=== PATIENT | female | born 1970 | race Caucasian/White ===

== ENCOUNTER 2019-10-17 20:38 | Inpatient (IN) ==
[2019-10-18] MEDS ORDERED: ICU PROTOCOL FOR HYPERGLYCEMIA PRN (05:57)
[2019-10-18] MEDS ORDERED: ALBUT/IPRATROP 3MG/0.5MG NEB 3 ML VIAL INH PRN (06:03)
--- NOTE | 2019-10-18 06:09 | History & Physical Report ---
Date of Service October 18, 2019 Assessment & Plan (1) Admitted to intensive care unit: Consult to vegetable ii farmworker Dr. Stacy and staff. Present on Admission?: Yes (2) NSTEMI, initial episode of care: The patient will have ordered serial cardiac enzymes, serial EKG's, cardiac rhythm monitoring and a 2-D echocardiogram with Dopplers. Initial troponin at [facility] was 1.5. Consult cardiology. Present on Admission?: Yes (3) Acute respiratory failure with hypoxia: Patient received a total of 4 L normal saline during resuscitation efforts at [facility]. Albumin is 2.7. We will give albumin 25 g IV x2. Stat chest x-ray ordered. BiPAP is being tapered, and will change to nasal cannula as symptoms improve. No immediate need for Lasix at this time, but will likely benefit soon. Present on Admission?: Yes (4) Sepsis due to gram-negative UTI: Sepsis due to gram-negative UTI/hydronephrosis with urinary obstruction due to ureteral calculus- Continue empiric treatment vancomycin IV and Zosyn IV. Would not draw additional urine culture and blood cultures drawn here, as patient has already received IV antibiotics, and will follow reports from [facility]. Present on Admission?: Yes (5) Hydronephrosis with urinary obstruction due to ureteral calculus: See above Present on Admission?: Yes (6) Altered mental status: Patient upon first presentation to [facility] on 01/12 had normal mentation. Upon presentation to [facility] ED on the evening of 01/13 she was noted to be confused. Upon arrival to [facility] ICU patient does answer questions appropriately. Present on Admission?: Yes (7) Anemia: 20 compare hemoglobin 9.2, with for hemoglobin pending. Present on Admission?: Yes History of Present Illness Chief Complaint: The patient initially reported to [facility] emergency department on 01/12 and was diagnosed with a 2 x 3 ureteral stone without obstruction, received IV fluids, IV Zofran and IV Toradol, and was discharged to home. Patient returned to the ED at [facility] this evening, with complaint of worsening flank pain and altered mental status. Work-up at this time revealed a 5 mm obstructing ureteral calculus, with mild to moderate hydroureteronephrosis, and and elevated troponin of 1.5, for which she was started on heparin drip. She also received vancomycin IV and Zosyn IV, along with 4 L nasal cannula IV fluid bolus. Primary Care Provider: NO PCP The patient is a 49-year-old female who presented to [facility] emergency department as noted above. She was transferred to [facility] for admission to ICU for further diagnosis and treatment. En route, patient developed acute respiratory failure with hypoxia, was placed on BiPAP, and had an ABG suggestive of respiratory failure with hypoxia and hypercapnia. Allergies Allergy/AdvReac Type Severity Reaction Status Date / Time Penicillins Allergy Unknown Unknown Verified 10/18/19 08:39 Past Med/Surg History Social History Preferred Language: Finnish Communication Ability: Unable Program Arranger Required: No Beliefs That Will Affect Care: None Current Living Situation: Other Current Living Situation Comment: Friend Other Information That Helps Us Care for You: No Feels Safe at Home: Yes Safety Concerns: Feels Safe At This Time Smoking Status: Current every day smoker Tobacco Type: cigarettes ; Cigarettes Per Day: 10 ; Do You Dip or Chew Tobacco: No ; Second Hand Exposure: No ; Tobacco Cessation Education Requested by Patient: No Hx Alcohol Use: No Hx Substance Use: No Review of Systems Review of Systems: The patient denies chest pain, palpitations, cough, sore throat, fevers, chills, sweats, nausea, vomiting, diarrhea , constipation, abdominal pain, pelvic pain, blood in urine or stool, dysuria, urinary frequency or urgency, lightheadedness, dizziness, headache, memory loss, loss of consciousness, rash, abnormal bruising or bleeding, imbalance, focal weakness, numbness or tingling in arms or legs, generalized arthralgias or myalgias, back or neck pain, or night sweats. The review of systems is otherwise negative other than for that already noted above, and at least 10 systems have been reviewed. Physical Exam Physical Exam: The patient is awake, alert and oriented 3, BiPAP mask in place, otherwise normocephalic and atraumatic, lying in bed and in no acute distress. HEENT--PERRL, EOMI, mucous membranes and oropharynx dry. Neck--supple. No JVD. No bruits. Thyroid normal, trachea midline, no adenopathy. Heart--normal S1 and S2. No murmurs, rubs or gallops. Lungs--few coarse breath sounds bilaterally. No respiratory distress, no accessory muscle use. Abdomen--normal bowel sounds and soft. Nontender. Mildly tympanitic. Extremities--no cyanosis or clubbing. Trace bilateral pretibial pitting edema. Dermatologic--normal skin turgor, normal color, no abnormal lymph nodes, no rash. Neurologic--cranial nerves II through XII grossly intact. Rheumatologic--limited exam Psychiatric--normal affect. Code Status & VTE Plan Code Status Full code VTE Prophylaxis Plan VTE Prophylaxis will be ordered: Yes Critical Care Time Critical Care Time: Yes Total Critical Care Time: 40 Total critical care time was 40 minutes PG Care Time/CCT Total # of Minutes Spent Total Time Spent with Patient: Total time spent is greater than 50% in coordination of care (as documented) at patient's floor/unit and/or counseling patient: Critical Care Time: Yes Total Critical Care Time: 40 Coding Level of Care Code 92596 Initial Inpt Care Lvl 3 Diagnoses Admitted to intensive care unit Z78.9 NSTEMI, initial episode of care I21.4 Acute respiratory failure with hypoxia J96.01 Sepsis due to gram-negative UTI A41.50; N39.0 Hydronephrosis with urinary obstruction due to ureteral calculus N13.2 Altered mental status R41.82 Anemia D64.9 Additional Codes Critical Care Time - Critical Care Time: Yes ([id number]) Time Spent (min) 40
[2019-10-18] MEDS ORDERED: VANCOMYCIN CONSULT ACTIVE PRN (06:14)
[2019-10-18] MEDS ORDERED: PIPERACILL/TAZOBAC CONSULT ACTIVE PRN (06:14)
[2019-10-18 06:30] LABS: iSTAT Art Bld Gas pCO2 Correct 32 mmHg (35-46); iSTAT Art Bld Gas pH Corrected 7.285 (7.35-7.45); iSTAT Arterial Blood Gas HCO3 15 meg/L (19-24); iSTAT Arterial Blood Gas pCO2 32 mmHg (35-46); iSTAT Arterial Blood Gas pH 7.29 (7.35-7.45); iSTAT Arterial Blood Gas pO2 110 mmHg (80-95); iSTAT Arterial Blood Gas pO2 C 110; iSTAT Carbon Dioxide 16 mmol/L (24-31); iSTAT FiO2 60 %; iSTAT Hematocrit 27 % (37-47); iSTAT Hemoglobin 9.2 g/dl (12.0-16.0); iSTAT Potassium 4.1 mmol/L (3.3-5.0); iSTAT Site Art Line; iSTAT Sodium 140 mmol/L (135-144)
[2019-10-18] MEDS ORDERED: PATIENT'S HEIGHT AND/OR WEIGHT NEEDED SCH (06:30)
[2019-10-18] MEDS: ALBUMIN 25% 50 ML IV SCH ×2 (06:34→09:36)
--- NOTE | 2019-10-18 06:34 | XRay Report ---
XR chest 1V portable HISTORY: 49 years-old Female HYPOXIA acute hypoxia COMPARISON: None TECHNIQUE: Portable AP view of the chest FINDINGS: Cardiac silhouette is enlarged. Blunting of the costophrenic angles with mild hypoinflation. No pneum othorax. Diffuse bilateral mixed interstitial and alveolar opacities. Pulmonary vascular congestion. No large pleural effusion. Degenerative changes of the shoulders and spine. IMPRESSION: 1. Cardiomegaly with mixed interstitial and alveolar opacities suggestive of pulmonary edema versus m ultifocal pneumonia. 2. Hypoinflation with blunting of the costophrenic angles suggestive of atelectasis versus trace effu sions. ACT 112: Negative or not required by law. The above report was generated using voice recognition software. It may contain grammatical, syntax o r spelling errors. Electronically signed by: Jean Claude Spear M.D. 10/18/2019 6:33 AM
[2019-10-18 06:38] LABS: Albumin Level 2.3 gm/dl (3.4-5.0); Calcium 7.2 mg/dl (8.5-10.1); Creatinine Clr Calc Pharmacy 24.7 ml/min; Est GFR (African American) 18.9; Est GFR (Non-African American) 16.3; Magnesium 1.5 mg/dl (1.8-2.4)
[2019-10-18 06:47] LABS: Albumin Globulin Ratio 0.6 (0.9-2); Bilirubin,Total 0.6 mg/dl (0.2-1); Globulin 3.6 gm/dl (2.5-4.0); Total Protein 5.9 gm/dl (6.4-8.2); Troponin I 2.22 ng/ml (0-0.045)
--- NOTE | 2019-10-18 06:54 | Critical Care Consultation ---
Date of Consultation October 18, 2019 Assessment & Plan (1) Admitted to intensive care unit: Reason Critically Ill: 49-year-old female presenting with sepsis from urinary source and retained RIGHT-sided ureteral calculus with complicating NSTEMI with subsequent volume overload in the setting of aggressive fluid resuscitation. Requiring close hemodynamic monitoring in the setting of presenting symptoms and possible need for impending airway protection. NEURO - * CAM ICU: NEGATIVE * Altered mental status: * Secondary to metabolic encephalopathy in the setting of sepsis, acute kidney injury, NSTEMI, etc. * CT head unremarkable in outpatient setting. * No focal neurological deficits on exam. * Monitor for improvement as patient's clinical status changes. * Anxiety/depression: * Hold home medications with current altered mental status. CARDIAC/VASCULAR - * NSTEMI: * Likely secondary to demand ischemia in the setting of related infection. Without concerning EKG findings. Placed on heparin drip in outpatient facility. * Echocardiogram ordered in the event that the patient has experienced recent coronary event in the setting of current illness. * Trend troponins. * Appreciate cardiology consultation with the need of emergent surgical intervention. * EKG: Sinus Tach @115bpm. No ST/T-wave changes. QTc 473ms. * Monitor on telemetry. RESPIRATORY - * Acute respiratory failure with hypoxia: * Secondary to pulmonary edema with acute volume overload. * Initially placed on BiPAP at outpatient hospital. Transition to CPAP in route secondary to EMS capabilities. Initially presenting extremely tachypneic and uncomfortable. Transition to BiPAP and has shown improvement this time. * ABG upon arrival: 7.285/32.1/110/15.2 * Currently doing well on BiPAP. Less respiratory distress at this time. * Low threshold for intubation. GI/NUTRITION - * N.p.o. at this time. RENAL/LYTES - * Acute kidney injury: * In the setting of retained stone and likely hypovolemia. * Aggressively resuscitated in outside facility and now actually volume overloaded at this time. * Making urine. * Received dose of Lasix at outpatient hospital. * Continue to trend electrolytes. Replace appropriately. * IVF: Hold secondary to volume status this point. - * Retained RIGHT-sided ureteral stone with hydronephrosis -superimposed UTI with concerns for septic stone. * Urology consulted. Spoke with urology this morning. They will follow with patient's course at this time with plans for emergent stenting today. * Currently on vancomycin and Zosyn. * Growing out gram-negative rods. Presumed E. coli like infection from urinary source. * Jimenez in place - Strict I&Os. ENDO - * No history of diabetes or thyroid disease. * BSGs per unit protocol. ISS --> gtt per unit policy. HEME - * Anemia: * Possible dilutional component secondary to receiving 4 L. * Regardless, continue to trend H&H. ID - * Sepsis from urinary source in the setting of retained urinary stone. * Received vancomycin, Zosyn, and meropenem. * Will continue with vancomycin and Zosyn. * Initial lactate 4.4. Will repeat now. * Will add procalcitonin. * Will avoid cultures at this time as the patient is received over 3 antibiotics at this point. Will rely on outpatient cultures at this time. LINES/IV ACCESS - * PIVs x2 * RIGHT radial arterial line. * Jimenez catheter DVT PROPHYLAXIS - * Heparin drip. * SCDs I have personally spent 45 minutes of critical care time in the direct management of this patient. This is a life/limb threatening event. This includes time spent evaluating patient, direct bedside care, chart review, placing orders, interpretation of diagnostic studies, discussion with consultants, patient, and family members, as well as other required patient management activities. This time is exclusive of all separately billable procedures, and teaching time and separate from and in addition to any other critical care service time. Thank you for allowing us to participate in the care of this patient. Please refer to my attending physician's documentation for any further recommendations. (2) Hydronephrosis with urinary obstruction due to ureteral calculus: (3) Acute respiratory failure with hypoxia: (4) NSTEMI, initial episode of care: (5) Sepsis due to gram-negative UTI: (6) Altered mental status: (7) Anemia: Supervising Physician Co-Signing Physician Notes I have personally evaluated and examined this patient. I agree with assessment and plan of Maritza Turner PA-C. Please review today's note for follow-up critical care. History of Present Illness Attending Physician: Shamar Vazquez MD History of Present Illness Patient is a 49-year-old female with significant past medical history of depression and anxiety who was seen at the [facility] emergency department yesterday with complaints of RIGHT-sided flank pain. She was diagnosed with a 2 to 3 cm renal stone with hydronephrosis. Phone consultation was made to local urology office and it was felt as though the patient would likely pass the stone without issue. Today, the patient was noted to be altered and sleeping in her bed. She had urinated herself. Her daughter found her at home and contacted EMS. Upon arrival in the emergency department, the patient was somnolent and drowsy. Apparently, she had received Narcan prior to arrival without success. She received 1.5 L of normal saline and was much improved at this time and able to provide history. The patient was alert and oriented at that point. Repeat CT scan demonstrates a 5 mm obstructing stone with significant hydronephrosis. Urine was concerning for infection. She was febrile and tachycardic. Labile blood pressures noted. Given lack of urologic services at [facility], consultation was made to transfer the patient to our facility. Patient was accepted at approximately 2000. Transportation to this facility was unsuccessful and the patient did not arrive in this unit until 0540. Upon arrival in the ICU, the patient is awake, alert, and oriented. She is aware of name, date of , and location. She is unaware of year, but does know month. She knows that she is here for kidney stone. She describes feeling short of breath and RIGHT-sided flank pain. Despite her shortness of breath, she denies any headaches, dizziness, chest pain, palpitations, pleuritic pain, nausea, vomiting, or abdominal discomfort. Patient reports history of smoking. Allergies Allergy/AdvReac Type Severity Reaction Status Date / Time Penicillins Allergy Unknown Unknown Verified 10/18/19 08:39 Patient History Social History Preferred Language: Lao Communication Ability: Unable Other Sales Support Worker Required: No Beliefs That Will Affect Care: None Current Living Situation: Other Current Living Situation Comment: Friend Other Information That Helps Us Care for You: No Feels Safe at Home: Yes Safety Concerns: Feels Safe At This Time Smoking Status: Current every day smoker Tobacco Type: cigarettes ; Cigarettes Per Day: 10 ; Do You Dip or Chew Tobacco: No ; Second Hand Exposure: No ; Tobacco Cessation Education Requested by Patient: No Hx Alcohol Use: No Hx Substance Use: No Review of Systems Review of Systems: A complete 10 point review of systems was reviewed with the patient with pertinent positives and negatives as per history of present illness. All else were negative. Physical Exam Physical Exam: VITAL SIGNS - Vital signs and nursing notes were reviewed. GENERAL - 49-year-old female appearing her stated age who is in no acute distress. Communicates well with provider and answers questions appropriately. SKIN - Without rashes. HEAD - NC/AT. EYES - PERRL with EOMI bilaterally. Sclera anicteric. Palpebral conjunctiva pink and moist with no injection noted. EARS - No deformities of external structures noted on gross examination bilaterally. NOSE - Midline and without cyanosis. No epistaxis or purulent drainage noted. MOUTH/OROPHARYNX - BiPAP mask in placer. Without perioral cyanosis. Buccal mucosa pink and moist and without leukoplakia. Tongue midline with equal elevation of palate bilaterally. NECK - Neck with FROM. Supple to palpation. No lymphadenopathy noted. No nuchal rigidity. LUNGS - Chest wall symmetric without accessory muscle use, intercostals retractions, or central cyanosis. Normal vesicular breath sounds CTA B/L. No wheezes, rales, or rhonchi appreciated. CARDIAC - RRR with S1/S2. No murmur, rubs, or gallops appreciated. ABDOMEN - Abdominal contour obese without pulsations or visible masses. BS normoactive all four quadrants. No tenderness, palpable masses, hepatosplenomegaly, or ascites noted. RIGHT sided flank pain w/ percussion noted. EXTREMITIES - No clubbing or peripheral cyanosis. No pretibial edema present. +3/5 radial and dorsalis pedis pulses palpated throughout. +5/5 strength noted in UE/LE bilaterally. NEUROLOGIC - Cranial nerves II through XII grossly intact. Sensory intact to light touch throughout. PSYCH -patient is awake, alert, and oriented to person, place, location. She is unaware of year. She is unaware of date. She knows it is September. She knows she is in [place] for her RIGHT sided flank pain and kidney stone. Results & Data ([facility]) Vital Signs (Past 12 Hours) Vital Signs Temp Pulse Pulse Resp BP BP Pulse Ox 10/18/19 06:26 115 H 10/18/19 06:17 116 H 22 144/104 H 10/18/19 06:15 116 H 21 10/18/19 06:14 36.5 C 115 H 35 H 135/100 97 10/18/19 06:02 114 H 37 H 132/99 100 10/18/19 06:00 115 H 35 H 99 10/18/19 05:47 115 H 34 H 135/100 99 Coding Level of Care Code Critical Care 1st 30-74 mins Diagnoses Admitted to intensive care unit Z78.9 Hydronephrosis with urinary obstruction due to ureteral calculus N13.2 Acute respiratory failure with hypoxia J96.01 NSTEMI, initial episode of care I21.4 Sepsis due to gram-negative UTI A41.50; N39.0 Altered mental status R41.82 Anemia D64.9 Time Spent (min) 45
[2019-10-18 06:56] LABS: ANC (manual) 12.71 K/uL (1.4-6.5); Basophils # (manual) 0.13 K/uL (0-0.2); Basophils % (manual) 0.9 %; Echinocytes 1+; Hematocrit (blood only) 30.3 % (37-47); Lymphocytes # (manual) 0.76 K/uL (1.2-3.4); Lymphocytes % (manual) 5.2 %; Mean Corpuscular Volume 84.9 fL (80-100); Mean Platelet Volume 10.6 fL (7.4-10.4); Metamyelocytes # (manual) 0.63 K/uL (0-0); Metamyelocytes % (manual) 4.3 %; Monocytes # (manual) 0.38 K/uL (0.11-0.59); Monocytes % (manual) 2.6 %; Neutrophils # (manual) 12.71 K/uL (1.4-6.5); Platelet Count 41 K/uL (130-400); Platelet Estimate Decreased (Normal); RDW Coefficient of Variation 14.7 % (11.5-14.5); Red Blood Count 3.57 M/uL (4.2-5.4); Toxic Vacuolation 2+; White Blood Count 14.61 K/uL (4.8-10.8)
[2019-10-18 07:06] LABS: INR 1.2 (0.9-1.1); Partial Thromboplastin Ratio 4.1; Prothrombin Time 12.5 Seconds (9.0-12.0)
[2019-10-18] MEDS ORDERED: PERFLUTREN LIPID MICROSPHERE (DEFINITY) IV ONE (07:15)
--- NOTE | 2019-10-18 07:19 | Procedure Note ---
Procedure Note Date of Service October 18, 2019 Procedure: Arterial Line Placement Attending: Dr. Stacy APC: Saad Turner PA-C Indication: Monitoring on Pressors Anesthesia: Lidocaine 1% Verbal consent obtained in the setting of need for emergent ABG, blood gas monitoring in the setting of impending airway. Emergent consent implied. A time-out was completed verifying correct patient, procedure, site, positioning, and implant(s) or special equipment if applicable. Allens test was performed to ensure adequate perfusion. Patients RIGHT wrist was prepped and draped in the usual sterile fashion. Ultrasound guidance was used to aid needle placement. A 20g Arrow arterial line was introduced into the RIGHT Radial artery. Catheter was threaded, and the needle was removed with appropriate blood return. Good waveform was observed. The patient tolerated the procedure well. Confirmation of placement with ultrasound. Blood Loss: Minimal Complications: None Procedural Ultrasound Guidance: Procedure Date: 10/18/2019 Indication: ABGs, Pressures, Labs. Attending: Dr. Stacy APC: Saad Turner PA-C Artery Identified: YES Line confirmed in Artery with ultrasound: YES Complications: NONE Patient tolerated procedure: WELL Coding CPT Codes Tubes, Drains, and Vasc Access - Tubes, Drains, and Vasc Access: [id number] Place Catheter In Artery ([id number]) [facility] Procedure Codes (Charges) Tubes, Drains, and Vasc Access Procedure 1: Tubes, Drains, and Vasc Access: [id number] Place Catheter In Artery
[2019-10-18] MEDS ORDERED: STAT IV Infusion **Titration per Protocol STA (07:31)
[2019-10-18] MEDS ORDERED: fentaNYL citrate 100 MCG/2 ML VIAL IV PRN (07:31)
[2019-10-18] MEDS ORDERED: Heparin IV Standard *NO* Bolus IV SCH (07:33)
[2019-10-18] MEDS ORDERED: RAPID SEQUENCE INDUCTION BAG ONE (07:33)
[2019-10-18] MEDS ORDERED: MIDAZOLAM HCL 125MG/250ML D5W ONE (07:35)
[2019-10-18 07:40] LABS: Partial Thromboplastin Time 111.5 Seconds (21.0-31.0)
[2019-10-18] MEDS ORDERED: fentaNYL DRIP 1,250 MCG/250 ML BAG IV SCH (07:45)
[2019-10-18] MEDS ORDERED: HEPARIN SODIUM/DEXTROSE 25,000 UNITS/500 ML BAG IV SCH (07:45)
[2019-10-18] MEDS ORDERED: MIDAZOLAM HCL 125 MG/250 ML BAG IV SCH (07:45)
--- NOTE | 2019-10-18 07:54 | Urology Consultation ---
Date of Consultation October 18, 2019 Assessment & Plan (1) Right ureteral stone: (2) Acute kidney injury: (3) Hydronephrosis with urinary obstruction due to ureteral calculus: 49 year-old female patient admitted with altered mental status, acute respiratory failure, NSTEMI, sepsis, and 5 mm obstructing right proximal ureteral stone. - Keep NPO - Complicated hospital course - being managed by intensivists - Anesthesia consulted - Discussed findings with patient's daughter who is also agreeable with stent today. Findings reviewed with Dr. Paredes. Given her ZION and sepsis in the context of an obstructing 5mm proximal right ureteral stone, will proceed with emergent OR for cystoscopy, right retrograde pyelogram and right stent placement. Risks and benefits to be reviewed with patient/family member by Dr. Paredes. OR notified. Preoperative CXR and EKG completed. Patient currently covered with IV Zosyn preoperatively. History of Present Illness Reason for Consultation: Obstructing right ureteral stone with hydronephrosis Attending Physician: Augustin Cuba History of Present Illness Patient is a 49-year-old female with significant past medical history of depression and anxiety admitted 10/18 via transfer from [facility]. Upon record review, patient was seen [facility] on 10/15 and diagnosed with 2x3 right ureteral stone. She was told she would likely pass stone without intervention and sent home. Patient was then found by her daughter at home 10/17 with altered mental status and contacted EMS and evaluated at [facility]. Repeat CT scan demonstrated a 5 mm obstructing right proximal ureteral stone with significant hydronephrosis. Urine at that time was concerning for infection. Notes report patient was febrile and tachycardic. Patient was then transferred to [facility] for acute management. Patient's current health status also complicated by NSTEMI, acute respiratory failure, and sepsis. Patient reports she has not followed with urology services in the past. Denies history of stones. Does have first degree relative with history of renal stones. Chart review: Wbc 14.61 Hgb 10.0 Creatinine 3.15 Lactic acid 2.6 Urinalysis positive for blood and bacteria, negative for leukocytes, wbc 0-1 Afebrile since [facility] hospital admission CT abd/pelvis: 5 mm obstructing right ureteral stone with moderate hydronephrosis Patient examined in bed, she is awake and alert. Does report right flank pain. Does state she was experiencing subjective fevers and chills prior to admission. Denies nausea or vomiting. Reports hematuria and dysuria. Denies frequency or urgency. Patient on Bipap at time of exam. Did discuss findings and planned procedure with patient's daughter Lino De Oliveira, who agrees with plans. All questions answered. ATTENDING: Plan for urgent stent placement on right for severe sepsis. Patient intubated and sedated. Consent through daughter for urgent procedure. Allergies Allergy/AdvReac Type Severity Reaction Status Date / Time Penicillins Allergy Unknown Unknown Verified 10/18/19 08:39 Patient History Social History Preferred Language: Montserratian Communication Ability: Effective Clinical Nutritionist Required: No Beliefs That Will Affect Care: None Current Living Situation: Other Current Living Situation Comment: Friend Other Information That Helps Us Care for You: No Feels Safe at Home: Yes Safety Concerns: Feels Safe At This Time Smoking Status: Current every day smoker Tobacco Type: cigarettes ; Cigarettes Per Day: 10 ; Do You Dip or Chew Tobacco: No ; Second Hand Exposure: No ; Tobacco Cessation Education Requested by Patient: No Hx Alcohol Use: No Hx Substance Use: No Review of Systems Constitutional: as per Subjective / HPI, + fever and + chills Respiratory: as per Subjective / HPI and + dyspnea Cardiovascular: as per Subjective / HPI Gastrointestinal: no nausea and no vomiting Genitourinary: as per Subjective / HPI, + dysuria and + hematuria Neurologic: as per Subjective / HPI Physical Exam Constitutional: well developed, + ill appearing, cooperative and comfortable ENMT: Ears: no external ear abnormality Nose: no external nose abnormality Neck: normal visual inspection; no anterior neck swelling Respiratory: Bipap in place. No audible wheezing. Gastrointestinal (Abdomen): Abdomen soft, non-tender, non-distended. No guarding or rigidity. Musculoskeletal: Able to move all extremities without difficulty. Skin: No visible rashes, lesions, or wounds. Neurologic: moves all extremities and awake Psychiatric: Patient awake, alert, and answers questions appropriately. Alert to person, place, and event. Unable to recall time at time of exam. Genitourinary: Positive right CVA tenderness upon palpation. Jimenez cathter intact draining concentrated yellow urine. Results & Data Vital Signs (Past 12 Hours) Vital Signs Temp Pulse Pulse Resp BP BP Pulse Ox 10/18/19 07:08 32 H 96 10/18/19 06:26 115 H 10/18/19 06:17 116 H 22 144/104 H 10/18/19 06:15 116 H 21 10/18/19 06:14 36.5 C 115 H 35 H 135/100 97 10/18/19 06:02 114 H 37 H 132/99 100 10/18/19 06:00 115 H 35 H 99 10/18/19 05:47 115 H 34 H 135/100 99 PG Care Time/CCT Total # of Minutes Spent Total Time Spent with Patient: Total time spent is greater than 50% in coordination of care (as documented) at patient's floor/unit and/or counseling patient: Coding Level of Care Code 51659 Inpt Consult Level 3 Diagnoses Right ureteral stone N20.1 Acute kidney injury N17.9 Hydronephrosis with urinary obstruction due to ureteral calculus N13.2
--- NOTE | 2019-10-18 07:57 | Procedure Note ---
Procedure Note Date of Service October 18, 2019 APC: Saad Turner PA-C. Attending: Dr. Stacy A time-out was completed verifying correct patient, procedure, site, positioning. Patient was evaluated and required intubation for respiratory distress in the setting of ARDS with profound hypoxia requiring escalating FiO2 utilizing BiPAP. Sedative agent used: Fentanyl, Etomidate Paralysis agent used: Succinylcholine Emergent consent was implied given patients rapidly declining clinical status and need for airway protection. The patient was prepared in the appropriate fashion. Sedation was achieved utilizing Fentanyl, Etomidate and Succinylcholine, per Dr. Somers administration. The patient was easily ventilated using BiPAP mask to achieve adequate oxygenation. A 7.5 Syriac endotracheal tube was placed using [place] Scope to 21 cm at the lip. The stylette was removed and balloon was inflated with 10mL of air. Appropriate Colorimetric change was appreciated. Bilateral breath sounds were heard without air sounds in the abdomen. Dr. Stacy was present for the entire procedure. Post Intubation Chest X-ray confirms placement without pneumothorax. Patient tolerated the procedure well and there were no immediate complications. Coding CPT Codes Resuscitation - Resuscitation: 11717 Endotracheal Intubation, emergency ([id number]) [facility] [place] Procedure Codes (Charges) Resuscitation Resuscitation: 32428 Endotracheal Intubation, emergency
--- NOTE | 2019-10-18 08:18 | XRay Report ---
XR chest 1V portable HISTORY: 49 years-old Female post tube acute respiratory failure COMPARISON: Chest radiograph of same day at 6:21 AM TECHNIQUE: Portable AP view the chest FINDINGS: Status post placement of an endotracheal tube terminating 2.4 cm superior to the reinier. Cardiac silh ouette is enlarged. Mild linear bibasilar atelectasis. Blunting of the costophrenic angles with mild hypoinflation. No pneumothorax. Mildly improved aeration of the lungs with persistent bilateral mixed interstitial and alveolar opacities. Pulmonary vascular congestion. No large pleural effusion. Degen erative changes of the shoulders and spine. IMPRESSION: Status post placement of an endotracheal tube terminating 2.4 cm superior to the reinier. ACT 112: Negative or not required by law. The above report was generated using voice recognition software. It may contain grammatical, syntax o r spelling errors. Electronically signed by: Jean Claude Spear M.D. 10/18/2019 8:17 AM
--- NOTE | 2019-10-18 08:25 | Anesthesiology Progress Note ---
Date of Service October 18, 2019 Assessment & Plan (1) Acute respiratory failure with hypoxia: Intubated in ICU by anesthesiologist. Vent and sedation management by critical care team. Present on Admission?: Yes Subjective Patient transferred overnight from outside hospital with obstructing ureteral stone. Worsening sepsis overnight and acute hypoxic respiratory failure, impending ARDS. Patient is planned for URS/Stenting later this morning or afternoon. On exam, patient tachycardic and altered mental status. Pulling at lines and CPAP mask. Oxygen saturations in the low 80s. The mask was replaced and oxygen saturations were improved to mid 90s, with some improvement in mental status. Given the worsening clinical picture and the need for an impending surgery, the decision to intubate the patient urgently in the ICU was made. Emergency consent declared, as patient was disoriented. Critical care EXPRESSIVE ART THERAPIST performed the procedure, supervised by myself. Patient was given 100mcg Fentanyl, 16mg Etomadate, 140mg Succinylcholine. RSI with cricoid pressure, glidescope used for placement of 8.0ETT. Bilateral breath sounds, continuous ETCO2 confirmed. Tube secured 21cm at the lip. CXR, ventilator, and sedation per CC team. Pre intubation vitals: HR 119 R: 24 BP: 155/105 SPO2: 94 Post intubation vitals: HR: 108 R: Controlled BP: 130/84 SPO2: 97 Physical Exam Vital Signs: Last Vital Signs Temp 36.5 C 10/18/19 06:14 Pulse 103 H 10/18/19 07:50 Resp 20 10/18/19 07:50 BP 144/104 H 10/18/19 06:17 Pulse Ox 98 10/18/19 07:50 Results & Data Medications Administered Albumin Human (Albumin 25%) 50 mls @ 50 mls/hr IV Q1H [place] Stop: 10/18/19 08:29 Last Admin: 10/18/19 06:34 Dose: Not Given Documented by: [id number]
--- NOTE | 2019-10-18 08:38 | Anesthesiology Consultation ---
Date of Service October 18, 2019 Assessment & Plan Chart Review Chart Review: Acceptable Risk for Surgery and Patient NOT seen in Pre Admission Testing Consults Requested none ASA [id number] Proposed Anesthesia Anesthesia Type: General Risk / Benefits Reviewed With: PT / POA / Parent / Guardian, Accepts Plan and Informed Consent Obtained History Surgery Operation Date: 10/18/19 08:15 Proposed Procedures p Cystoscopy Stent Insertion - Edmundo Paredes, DO Height/Weight Height: 5 ft 8 in Weight: 89.1 kg Allergies Allergy/AdvReac Type Severity Reaction Status Date / Time Penicillins Allergy Unknown Unknown Verified 10/18/19 08:39 NPO Date Last Intake of Fluids: 10/16/19 Time Last Intake of Fluids: 18:00 Date Last Intake of Solids: 10/16/19 Time Last Intake of Solids: 12:00 Exercise / Class Metabolic Activity III < 4 Walking/Shop/Light housework Past Anesthesia History No Hx of Anesthesia Complications and No Family Hx of Anesthesia Complications History of PONV No Hx of PONV and No Hx of Motion Sickness Social History Smoking Status: Current every day smoker tobacco type: cigarettes Smoking cigarettes per day: 10 Do You Dip or Chew Tobacco: No Hx Alcohol Use: No Hx Substance Use: No Physical Exam Vital Signs Last Vital Signs Temp 37 C 10/18/19 08:18 Pulse 103 H 10/18/19 08:18 Resp 20 10/18/19 07:50 BP 163/95 H 10/18/19 08:18 Pulse Ox 98 10/18/19 07:50 Testing Laboratory Results 10/18/19 06:13 10/18/19 06:13 PT 12.5 Seconds (9.0-12.0) H 10/18/19 06:32 INR 1.2 (0.9-1.1) H 10/18/19 06:32 APTT 111.5 Seconds (21.0-31.0) H* 10/18/19 06:32 Electrocardiogram Date: 10/18/19 Findings: + ST @ (at 115;? infer. infarct) Chest X-Ray Date: 10/18/19 Findings: + infiltrate, + pulmonary vascular congestion and + other (c/w ARDS)
[2019-10-18 08:50] LABS: Partial Thromboplastin Ratio 2.7
[2019-10-18] MEDS ORDERED: VANCOMYCIN HCL 1,000 MG in SODIUM CHLORIDE 0.9% 250 ML IV SCH (09:00)
[2019-10-18] MEDS ORDERED: PIPERACILLIN/TAZOBACTAM 3.375 GM in DEXTROSE 5% 100 ML IV ONE (09:15)
[2019-10-18] MEDS ORDERED: PIPERACILLIN/TAZOBACTAM 4.5 GM in DEXTROSE 5% 100 ML IV STA (09:18)
[2019-10-18] MEDS ORDERED: IOTHALAMATE MEGLUMINE II 17.2% 250 ML VIAL ONE (09:21)
[2019-10-18] MEDS ORDERED: MIDAZOLAM HCL 1 MG/ML 2ML VIAL ONE (09:26)
[2019-10-18] MEDS ORDERED: fentaNYL citrate 100 MCG/2 ML VIAL ONE (09:26)
[2019-10-18] MEDS ORDERED: ATROPINE SULFATE 0.1 MG/ML 10ML SYR IV PRN (10:09)
[2019-10-18] MEDS ORDERED: ePHEDrine sulfate 50 MG/ML AMP IV PRN (10:09)
--- NOTE | 2019-10-18 10:09 | Operative Report ---
PG Post Operative Report Pre & Post Diagnosis Operation Date: 10/18/19 08:15 Pre-Op Diagnosis: AMS,SEPSIS,HYDRONEPHROSIS Post-Op Diagnosis: AMS,SEPSIS,HYDRONEPHROSIS I identified the patient and participated in the time-out.: Yes Procedure Operation Date: 10/18/19 08:15 Actual Procedures p Cystoscopy with right aspiration, retrograde pyelogram, and Stent Insertion(Not Applicable) - Edmundo Paredes, Surgeon Edmundo Paredes, II, DO Gang Worker None Estimated Blood Loss 1 Findings Consistent with Post-Op Diagnosis Stent placed in good position. Specimens None Drains 6 Fr Multilength Anesthesia Type General Complications none Disposition Disposition: Recovery Room Indications Patient with obstruction. Risks and benefits discussed at length. Description of Procedure Patient was consented and brought back to the operating room. Patient was placed under anesthesia in the supine position and moved to the dorsal lithotomy position. Patient was prepped and draped in the regular sterile fashion. A time out was completed. A 30degree Cystoscope was placed into the bladder and the entire bladder was examined. The UO's were identified. The UO was cannulized with a catheter, an aspiration was completed, and a retrograde pyelogram was completed. Urine from aspiration was sent for micro scopic analysis. A wire was then placed. With the wire in place, a 6 Fr Double J stent was placed. It was confirmed with fluoroscopy. With the stent in place, the bladder was emptied. It was refilled, to allow catheter placment. The scope was removed. An 18 Fr Jimenez was placed. The patient was cleaned, aroused from anesthesia, and transferred to the pacu in stable condition having tolerated the procedure well with no complications. I was present and participated in all aspects of the procedure. The patient will be monitored in the PACU until transferred. I attest to the content of the Intraoperative Record and any orders documented therein. Any exceptions are noted below.
--- NOTE | 2019-10-18 10:10 | Cardiology Consultation ---
Date of Consultation October 18, 2019 Assessment & Plan (1) Cardiomyopathy: She has a cardiomyopathy based on echocardiography today which to my knowledge she does not have historically. I suspect it is due to her presentation with sepsis and may recover quickly, however could be longer st anding and is possible she has a nonischemic cardiomyopathy. The elevated troponin suggest a more acute process and she does not have evidence of an acute coronary event. I would be careful with fluids and would not consider invasive evaluation at this time. I would trend troponins and we can repeat the echocardiogram in several days depending on her progress. (2) Elevated troponin: She has a moderately elevated troponin (2.2) however this is in the range that this could be due to an acute global event due to her sepsis. I would trend troponins and get serial electrocardiograms but do not suspect an acute coronary event. Perhaps a stress test would be in order in the distant future. (3) CHF (congestive heart failure): She has evidence of heart failure on chest x-ray and has left ventricular dysfunction and a markedly elevated BNP. Her heart failure is probably on the basis of LV dysfunction as noted above. I would be cautious with fluids and if possible I would diuresis her, her blood pressure is elevated and does not appear to have been low since presentations so hopefully she can tolerate surgery without much fluid followed by diuresis. History of Present Illness Reason for Consultation: Elevated troponin Attending Physician: Augustin Cuba History of Present Illness This is a 49-year-old woman with no known cardiovascular history who presented to [facility] on October 15, 2019 diagnosed with a ureteral stone, she was treated and discharged. She returned to [facility] on October 18, 2019 and was noted to have an obstruction of her ureter and had an elevated troponin. She was transferred here. Here she developed acute respiratory failure and hypoxia, was initially placed on BiPAP and then intubated. She was septic. At the time of my evaluation she is intubated and sedated and preparing to go urgently to the operating room. Allergies Allergy/AdvReac Type Severity Reaction Status Date / Time Penicillins Allergy Unknown Unknown Verified 10/18/19 08:39 Patient History Social History Preferred Language: Georgian Communication Ability: Unable Supervisor Insecticide Required: No Beliefs That Will Affect Care: None Current Living Situation: Other Current Living Situation Comment: Friend Other Information That Helps Us Care for You: No Feels Safe at Home: Yes Safety Concerns: Feels Safe At This Time Smoking Status: Current every day smoker Tobacco Type: cigarettes ; Cigarettes Per Day: 10 ; Do You Dip or Chew Tobacco: No ; Second Hand Exposure: No ; Tobacco Cessation Education Requested by Patient: No Hx Alcohol Use: No Hx Substance Use: No Review of Systems Review of Systems: Unobtainable due to endotracheal tube Physical Exam Physical Exam: Constitutional: She is intubated and sedated, she does not appear to be in distress but is not responsive. HEENT: Unremarkable except for the endotracheal tube Neck: No jugular venous distention, carotid pulses are normal and equal bilaterally without bruits. Pulmonary: Crackles (examined supine) to auscultation bilaterally. Cardiac: Regular somewhat rapid rhythm with no murmur, gallop or rub. Abdomen: Soft, nontender with normal bowel sounds. Extremities: No edema. Distal pulses intact. Neurologic: Very limited exam due to sedation. Skin: No rash, ecchymoses or petechiae. Results & Data ([facility]) Vital Signs (Past 12 Hours) Vital Signs Temp Pulse Pulse Resp BP BP Pulse Ox 10/18/19 09:07 20 10/18/19 08:18 37 C 103 H 163/95 H 10/18/19 07:50 103 H 20 98 10/18/19 07:08 32 H 96 10/18/19 06:26 115 H 10/18/19 06:17 116 H 22 144/104 H 10/18/19 06:15 116 H 21 10/18/19 06:14 36.5 C 115 H 35 H 135/100 97 10/18/19 06:02 114 H 37 H 132/99 100 10/18/19 06:00 115 H 35 H 99 10/18/19 05:47 115 H 34 H 135/100 99 Diagnostic Findings Electrocardiogram: On admission sinus tachycardia with inferolateral Q waves which are probably not significant, no acute change Telemetry: Sinus tachycardia with no significant arrhythmia Chest x-ray: Cardiomegaly with CHF Echocardiogram: Left ventricular dysfunction, EF probably around 30% by my visual observation (final report not done yet), the base contracts better than the apex. No pericardial effusion. PG Care Time/CCT Total # of Minutes Spent Total Time Spent with Patient: Total time spent is greater than 50% in coordination of care (as documented) at patient's floor/unit and/or counseling patient: Coding Level of Care Code 18314 Inpt Consult Level 4 Diagnoses Cardiomyopathy I42.9 Elevated troponin R79.89 CHF (congestive heart failure) I50.9
[2019-10-18] MEDS ORDERED: PROPOFOL IV EMULSION 10 MG/ML 20 ML VIAL IV ONE (10:24)
--- NOTE | 2019-10-18 10:39 | Fluoroscopy Report ---
FL retrograde includes kub HISTORY: STENT PLACEMENT FLUOROSCOPY TIME: 28 seconds FINDINGS: 6 fluoroscopic spot images were submitted for review. Retrograde opacification of the right ureter/renal collecting system with placement of a guidewire. This is followed by a right ureteral s tent which appears in good position. IMPRESSION: Fluoroscopy provided for right ureteral stent which appears in good position. ACT 112: Negative or not required by law. Electronically signed by: Wild Cabrera M.D. 10/18/2019 10:37 AM
[2019-10-18 10:40] LABS: Hematocrit (blood only) 30.2 % (37-47); Mean Corpuscular Hemoglobin 28.2 pg (25-34); Mean Corpuscular Volume 85.3 fL (80-100); RDW Coefficient of Variation 14.9 % (11.5-14.5); RDW Standard Deviation 47.1 fL (36.4-46.3); Red Blood Count 3.54 M/uL (4.2-5.4); White Blood Count 9.72 K/uL (4.8-10.8)
[2019-10-18] MEDS ORDERED: METOPROLOL TARTRATE 1 MG/ML VIAL IV PRN (10:40)
[2019-10-18 10:42] LABS: Mean Corpuscular Hgb Conc 33.1 g/dL (32-36); Mean Platelet Volume 10.4 fL (7.4-10.4); Platelet Count 32 K/uL (130-400)
[2019-10-18] MEDS ORDERED: METOPROLOL TARTRATE 1 MG/ML VIAL IV STA (10:42)
[2019-10-18 10:48] LABS: iSTAT Art Bld Gas pCO2 Correct 33 mmHg (35-46); iSTAT Arterial Blood Gas HCO3 15 meg/L (19-24); iSTAT Arterial Blood Gas pCO2 33 mmHg (35-46); iSTAT Arterial Blood Gas pH 7.27 (7.35-7.45); iSTAT Arterial Blood Gas pO2 53 mmHg (80-95); iSTAT Arterial Blood Gas pO2 C 52; iSTAT Carbon Dioxide 16 mmol/L (24-31); iSTAT Hematocrit 27 % (37-47); iSTAT Hemoglobin 9.2 g/dl (12.0-16.0); iSTAT Potassium 4.8 mmol/L (3.3-5.0); iSTAT Site Art Line; iSTAT Sodium 141 mmol/L (135-144)
[2019-10-18] MEDS ORDERED: NORMOSOL-R 1,000 ML IV SCH (11:00)
--- NOTE | 2019-10-18 11:00 | XCELERA ---
[id number] [id number]
[2019-10-18 11:02] LABS: Albumin Level 2.2 gm/dl (3.4-5.0); BUN Creatinine Ratio 18.1 (10-20); Bilirubin Direct 0.2 mg/dl (0-0.2); Bilirubin,Total 0.6 mg/dl (0.2-1); Calcium 7.3 mg/dl (8.5-10.1); Creatinine Clr Calc Pharmacy 23.8 ml/min; Est GFR (Non-African American) 15.6; Magnesium 1.7 mg/dl (1.8-2.4); Phosphorus 6.1 mg/dl (2.5-4.9); Potassium 4.7 mmol/L (3.5-5.1); Total Protein 5.7 gm/dl (6.4-8.2)
[2019-10-18] MEDS: FAMOTIDINE 20 MG in SYRINGE 3 ML IV SCH (11:09)
[2019-10-18] MEDS: MAGNESIUM SULFATE / D5W 1 GM/100 ML BAG IV SCH ×2 (11:12→13:39)
--- NOTE | 2019-10-18 12:02 | Anesthesiology Progress Note ---
Date of Service October 18, 2019 Anesthesia Post Procedure Vital Signs Vital Signs: Temp Pulse Pulse Resp BP BP BP 10/18/19 11:12 107 H 174/96 H 10/18/19 10:46 36.5 C 112 H 36 H 170/104 H 10/18/19 10:40 113 H 38 H 10/18/19 10:36 110 H 44 H 193/100 H 10/18/19 10:26 111 H 41 H 189/113 H 10/18/19 10:16 36.7 C 105 H 40 H 121/86 10/18/19 09:07 20 10/18/19 08:18 37 C 103 H 163/95 H 10/18/19 07:50 103 H 20 10/18/19 07:08 32 H 10/18/19 06:26 115 H 10/18/19 06:17 116 H 22 144/104 H 10/18/19 06:15 116 H 21 10/18/19 06:14 36.5 C 115 H 35 H 135/100 10/18/19 06:02 114 H 37 H 132/99 10/18/19 06:00 115 H 35 H 10/18/19 05:47 115 H 34 H 135/100 Pulse Ox 10/18/19 11:12 10/18/19 10:46 97 10/18/19 10:40 97 10/18/19 10:36 94 10/18/19 10:26 86 L 10/18/19 10:16 83 L 10/18/19 09:07 10/18/19 08:18 10/18/19 07:50 98 10/18/19 07:08 96 10/18/19 06:26 10/18/19 06:17 10/18/19 06:15 10/18/19 06:14 97 10/18/19 06:02 100 10/18/19 06:00 99 10/18/19 05:47 99 Transfer of Care Handoff Completed per policy Notes Mental Status: see notes below Patient Amnestic to Procedure: Yes Nausea / Vomiting: adequately controlled Pain: adequately controlled Airway Patency, RR, SpO2: stable & adequate BP & HR: see Notes below Hydration State: stable & adequate Anesthetic Complications: no major complications apparent Notes: Pt is intubated. Pt is septic. Pt is sedated. Pt is returning to ICU for mechanical ventilation.
[2019-10-18 12:36] LABS: INR 1.2 (0.9-1.1); Prothrombin Time 12.6 Seconds (9.0-12.0)
[2019-10-18 12:49] LABS: Albumin Level 2.2 gm/dl (3.4-5.0); BUN Creatinine Ratio 18.7 (10-20); Bilirubin Direct 0.3 mg/dl (0-0.2); Bilirubin,Total 0.7 mg/dl (0.2-1); Calcium 7.2 mg/dl (8.5-10.1); Creatinine Clr Calc Pharmacy 23.7 ml/min; Est GFR (Non-African American) 15.5; Hematocrit (blood only) 30.4 % (37-47); Hemoglobin 10.1 g/dL (12.0-16.0); Mean Corpuscular Hemoglobin 28.5 pg (25-34); Mean Corpuscular Hgb Conc 33.2 g/dL (32-36); Mean Corpuscular Volume 85.6 fL (80-100); Nucleated RBC # (auto) 0.02 K/uL (0-0); Nucleated RBC % (auto) 0.3 %; Phosphorus 6.3 mg/dl (2.5-4.9); Platelet Count 34 K/uL (130-400); Potassium 3.9 mmol/L (3.5-5.1); RDW Coefficient of Variation 15.1 % (11.5-14.5); RDW Standard Deviation 47.5 fL (36.4-46.3); Red Blood Count 3.55 M/uL (4.2-5.4); Total Protein 5.9 gm/dl (6.4-8.2); White Blood Count 5.44 K/uL (4.8-10.8)
[2019-10-18] MEDS ORDERED: VANCOMYCIN HCL 1,000 MG in SODIUM CHLORIDE 0.9% 250 ML IV ONE (13:00)
[2019-10-18] MEDS: PATIENT'S ALLERGY INFO NEEDS ENTERED SCH ×2 (13:09→19:58)
[2019-10-18 13:30] LABS: Troponin I 6.8 ng/ml (0-0.045)
[2019-10-18] MEDS: SODIUM BICARBONATE 8.4% 150 MEQ in WATER, STERILE 1,000 ML IV SCH (13:39)
--- NOTE | 2019-10-18 13:48 | Pharmacy Report ---
Pharmacy Abx Initial Consult - Date of Service October 18, 2019 - Pharmacy Dosing Scope Date of Consult: 10/18 Consultation requested by: Dr. Vazquez Pharmacy is consulted to initiate vancomycin/zosyn IV dosing therapy, order appropriate labs and adjust drug dose/frequency. - Subjective The patient is a 49 year old F admitted on 10/18/19 05:37. - Objective Height: 5 ft 8 in Weight: 89.1 kg Vital Signs (Past 12hrs): Vital Signs Temp Pulse Pulse Resp BP BP BP 10/18/19 13:12 105 H 34 H 10/18/19 11:12 107 H 174/96 H 10/18/19 10:46 36.5 C 112 H 36 H 170/104 H 10/18/19 10:40 113 H 38 H 10/18/19 10:36 110 H 44 H 193/100 H 10/18/19 10:26 111 H 41 H 189/113 H 10/18/19 10:16 36.7 C 105 H 40 H 121/86 10/18/19 09:07 20 10/18/19 08:18 37 C 103 H 163/95 H 10/18/19 07:50 103 H 20 10/18/19 07:08 32 H 10/18/19 06:26 115 H 10/18/19 06:17 116 H 22 144/104 H 10/18/19 06:15 116 H 21 10/18/19 06:14 36.5 C 115 H 35 H 135/100 10/18/19 06:02 114 H 37 H 132/99 10/18/19 06:00 115 H 35 H 10/18/19 05:47 115 H 34 H 135/100 Pulse Ox 10/18/19 13:12 100 10/18/19 11:12 10/18/19 10:46 97 10/18/19 10:40 97 10/18/19 10:36 94 10/18/19 10:26 86 L 10/18/19 10:16 83 L 10/18/19 09:07 10/18/19 08:18 10/18/19 07:50 98 10/18/19 07:08 96 10/18/19 06:26 10/18/19 06:17 10/18/19 06:15 10/18/19 06:14 97 10/18/19 06:02 100 10/18/19 06:00 99 10/18/19 05:47 99 Lab Results (24hrs): Laboratory Tests (24 Hours) 10/18/19 10/18/19 10/18/19 12:15 12:15 10:31 WBC 5.44 Creatinine 3.28 H 3.27 H Est Cr Clr Drug Dosing 23.7 23.8 Procalcitonin Random Vancomycin 10/18/19 10/18/19 10/18/19 10:31 08:18 06:28 WBC 9.72 Creatinine Est Cr Clr Drug Dosing Procalcitonin 159.27 H Random Vancomycin 14.5 10/18/19 10/18/19 06:13 06:13 WBC 14.61 H Creatinine 3.15 H Est Cr Clr Drug Dosing 24.7 Procalcitonin Random Vancomycin Micro Results: 10/18/19 12:18 Aerobic Blood Culture - Pending Blood Anaerobic Blood Culture - Pending 10/18/19 12:10 Aerobic Blood Culture - Pending Blood Anaerobic Blood Culture - Pending 10/18/19 10:02 Gram Stain - Pending Urine,Kidney Aerobic and Anaerobic Culture - Pending - Risk Factors for Resistance * - Assessment & Plan Assessment 49 year old F transferred from [facility],septic from presumed urinary source/retained right sided ureteral calculus, NSTEMI. Underwent Cystoscopy with right aspiration, retrograde pyelogram, and Stent Insertion. Currently intubated in the ICU, afebrile, normal white count. Patient reportedly received doses of zosyn (pcn allergy reported via relation/unknown adverse reaction), vancomycin and meropenem at outside facility. Random vanco level 14.2, will plan on dosing by levels as current half life >24 hours. Currently continued on zosyn/vancomycin. Cultures pending Plan Vancomycin IV * Estimated PK Parameters: Vd 0.7 L/kg, David 0.024 hr-1, t1/2 33 hr * Dose by levels, redosed with 1000 mg x 1, will obtain random level in the AM to assist with dosing * Goal trough level 15-20 mcg/mL Piperacillin/tazobactam * 4.5 g bolus administered over 30 minutes, then 4.5 g IV extended infusion every 12 hours for CrCl 20 mL/min or less * Aggressive dosing selected due to critically ill status Pharmacy will continue to follow and will adjust dose/frequency as necessary. Thank you.
[2019-10-18] MEDS: MIDAZOLAM HCL 1 MG/ML 2ML VIAL IV PRN ×5 (14:29→23:31)
[2019-10-18] MEDS: fentaNYL citrate 100 MCG/2 ML VIAL IV PRN ×3 (14:29→23:31)
--- NOTE | 2019-10-18 14:34 | Communication Note ---
Date of Service: October 18, 2019 Care was transitioned from Maritza Turner to myself. She had been intubated due to hypoxic respiratory failure in the setting of what is presumptive volume overload. I discussed the case with urology, she proceeded to the operating room and tolerated her procedure well. Postoperatively she has had an ongoing metabolic acidosis and is being oxygenated and ventilated adequately, I am starting a bicarbonate infusion. Troponin continuing to climb, however I think this is an aspect of myocardial dysfunction secondary to gram-negative bacteremia given the findings on the echocardiogram severe global hypokinesis. Given the bacteremia I certainly do not feel she is a candidate for any PCI intervention at this time. She has maintained her blood pressure and heart rate and does not frankly appear to be in cardiogenic shock versus more of a septic distributive picture. I have personally spent 55 minutes of critical care time in the direct manageme nt of this patient. This is a life/limb threatening event. This includes time spent evaluating patient, direct bedside care, chart review, placing orders, interpretation of diagnostic studies, discussion with consultants, patient, and/or family members regarding treatment decisions, as well as other required patient management activities. This time is exclusive of all separately billable procedures, and teaching time and separate from and in addition to any other critical care service time. Coding Level of Care Code Critical Care miguel angel anderson'gracia 30 min
[2019-10-18 14:38] LABS: iSTAT Art Bld Gas pH Corrected 7.261 (7.35-7.45); iSTAT Arterial Blood Gas pCO2 26 mmHg (35-46); iSTAT Arterial Blood Gas pH 7.27 (7.35-7.45); iSTAT Hematocrit 26 % (37-47); iSTAT Hemoglobin 8.8 g/dl (12.0-16.0); iSTAT Potassium 3.6 mmol/L (3.3-5.0); iSTAT Sodium 139 mmol/L (135-144)
[2019-10-18 14:39] LABS: iSTAT Art Bld Gas pCO2 Correct 26 mmHg (35-46); iSTAT Arterial Blood Gas HCO3 12 meg/L (19-24); iSTAT Arterial Blood Gas pO2 207 mmHg (80-95); iSTAT Arterial Blood Gas pO2 C 210; iSTAT Carbon Dioxide 13 mmol/L (24-31)
[2019-10-18 14:40] LABS: Patient Temperature 37.6; iSTAT Allen Test Not Performed; iSTAT Sample Type Arterial
[2019-10-18 14:41] LABS: iSTAT Site Art Line
--- NOTE | 2019-10-18 14:56 | Electrocardiogram Report ---
Test Reason : Blood Pressure : / mmHG Vent. Rate : 115 BPM Atrial Rate : 115 BPM P-R Int : 146 ms QRS Dur : 088 ms QT Int : 342 ms P-R-T Axes : 050 043 044 degrees QTc Int : 473 ms Sinus tachycardia Cannot rule out Inferior infarct , age undetermined Abnormal ECG No previous ECGs available Confirmed by Warren Lord ([id number]) on 10/18/2019 2:56:27 PM Referred By: Shamar Vazquez Confirmed By:Luisito Lord
[2019-10-18] MEDS: PIPERACILLIN/TAZOBACTAM 4.5 GM in DEXTROSE 5% 100 ML IV SCH (17:17)
[2019-10-18] MEDS ORDERED: ETOMIDATE 2 MG/ML 20 ML VIAL IV ONE (19:45)
[2019-10-18] MEDS ORDERED: SUCCINYLCHOLINE CHLORIDE 20 MG/ML 10 ML VIAL IV ONE (19:45)
[2019-10-18] MEDS ORDERED: fentaNYL citrate 100 MCG/2 ML CARP IV ONE (19:45)
[2019-10-18 20:43] LABS: INR 1.2 (0.9-1.1); Prothrombin Time 11.9 Seconds (9.0-12.0)
[2019-10-18 20:49] LABS: BUN Creatinine Ratio 20.3 (10-20); Calcium 6.9 mg/dl (8.5-10.1); Creatinine Clr Calc Pharmacy 23.8 ml/min; Est GFR (Non-African American) 15.6; Magnesium 2.4 mg/dl (1.8-2.4); Potassium 3.5 mmol/L (3.5-5.1)
[2019-10-18 20:58] LABS: Bilirubin Direct 0.3 mg/dl (0-0.2); Bilirubin,Total 0.7 mg/dl (0.2-1); Phosphorus 5.7 mg/dl (2.5-4.9); Total Protein 5.7 gm/dl (6.4-8.2); Troponin I 6.85 ng/ml (0-0.045)
[2019-10-18 21:16] LABS: Hematocrit (blood only) 27.7 % (37-47); Hemoglobin 9.2 g/dL (12.0-16.0); Mean Corpuscular Hemoglobin 28.4 pg (25-34); Mean Corpuscular Hgb Conc 33.2 g/dL (32-36); Mean Corpuscular Volume 85.5 fL (80-100); Mean Platelet Volume 10.5 fL (7.4-10.4); Platelet Count 21 K/uL (130-400); Platelet Estimate SIGNIFIC DECREASED (Normal); RDW Coefficient of Variation 15.1 % (11.5-14.5); RDW Standard Deviation 47.3 fL (36.4-46.3); Red Blood Count 3.24 M/uL (4.2-5.4); White Blood Count 14.09 K/uL (4.8-10.8)
[2019-10-18 22:10] LABS: iSTAT Art Bld Gas pCO2 Correct 32 mmHg (35-46); iSTAT Art Bld Gas pH Corrected 7.304 (7.35-7.45); iSTAT Arterial Blood Gas HCO3 16 meg/L (19-24); iSTAT Arterial Blood Gas pCO2 32 mmHg (35-46); iSTAT Arterial Blood Gas pH 7.31 (7.35-7.45); iSTAT Arterial Blood Gas pO2 177 mmHg (80-95); iSTAT Arterial Blood Gas pO2 C 178; iSTAT Carbon Dioxide 17 mmol/L (24-31); iSTAT Hematocrit 24 % (37-47); iSTAT Hemoglobin 8.2 g/dl (12.0-16.0); iSTAT Potassium 3.5 mmol/L (3.3-5.0); iSTAT Site Art Line; iSTAT Sodium 140 mmol/L (135-144)
[2019-10-18 22:40] LABS: Fibrinogen 799 mg/dl (184-400)
[2019-10-18 22:46] LABS: D Dimer 6980 ug/L FEU (0-500)
[2019-10-19 00:28] LABS: Allen Test POS (Pos); Base Excess ABG -8.5 mEq/L (-9-1.8); HCO3 ABG 16 mmol/L (19-24); Oxygen Saturation ABG 98.2 % (90-95); PCO2 ABG 31 mmHg (35-46); PO2 ABG 113 mmHg (80-95); pH ABG 7.34 (7.35-7.45)
[2019-10-19 00:46] LABS: BUN Creatinine Ratio 21.7 (10-20); Calcium 6.8 mg/dl (8.5-10.1); Creatinine Clr Calc Pharmacy 23.8 ml/min; Est GFR (African American) 18.1; Est GFR (Non-African American) 15.6; Magnesium 2.2 mg/dl (1.8-2.4); Phosphorus 5.6 mg/dl (2.5-4.9); Potassium 3.5 mmol/L (3.5-5.1)
[2019-10-19 00:53] LABS: Mean Corpuscular Hgb Conc 33.8 g/dL (32-36); Mean Platelet Volume 11.9 fL (7.4-10.4); Platelet Count 21 K/uL (130-400)
[2019-10-19 01:00] LABS: Basophils # (auto) 0.01 K/uL (0-0.2); Basophils % (auto) 0.1 %; Dohle Bodies 2+; Echinocytes 1+; Eosinophils # (auto) 0.08 K/uL (0-0.5); Eosinophils % (auto) 0.6 %; Hematocrit (blood only) 26.6 % (37-47); Immature Granulocytes # (auto) 0.33 K/uL (0.00-0.02); Immature Granulocytes % (auto) 2.6 %; Lymphocytes # (auto) 0.75 K/uL (1.2-3.4); Lymphocytes % (auto) 5.9 %; Mean Corpuscular Hemoglobin 28.6 pg (25-34); Mean Corpuscular Volume 84.4 fL (80-100); Monocytes % (auto) 0.8 %; Neutrophils # (auto) 11.43 K/uL (1.4-6.5); RDW Coefficient of Variation 15.1 % (11.5-14.5); RDW Standard Deviation 46.7 fL (36.4-46.3); Red Blood Count 3.15 M/uL (4.2-5.4); Toxic Vacuolation 2+
[2019-10-19] MEDS: MIDAZOLAM HCL 1 MG/ML 2ML VIAL IV PRN ×4 (02:25→11:04)
[2019-10-19] MEDS: fentaNYL citrate 100 MCG/2 ML VIAL IV PRN ×4 (03:30→11:04)
[2019-10-19] MEDS: SODIUM BICARBONATE 8.4% 150 MEQ in WATER, STERILE 1,000 ML IV SCH (03:41)
[2019-10-19 04:56] LABS: Base Excess ABG -5.8 mEq/L (-9-1.8); HCO3 ABG 18 mmol/L (19-24); Oxygen Saturation ABG 98.8 % (90-95); PCO2 ABG 30 mmHg (35-46); PO2 ABG 127 mmHg (80-95)
[2019-10-19 04:57] LABS: Allen Test POS (Pos)
[2019-10-19] MEDS: PIPERACILLIN/TAZOBACTAM 4.5 GM in DEXTROSE 5% 100 ML IV SCH ×3 (05:05→21:37)
[2019-10-19 05:23] LABS: INR 1.2 (0.9-1.1); Partial Thromboplastin Ratio 1.7; Partial Thromboplastin Time 44.8 Seconds (21.0-31.0); Prothrombin Time 11.9 Seconds (9.0-12.0)
[2019-10-19 05:27] LABS: Fibrinogen 680 mg/dl (184-400)
[2019-10-19 05:28] LABS: Albumin Level 1.5 gm/dl (3.4-5.0); BUN Creatinine Ratio 23.5 (10-20); Bilirubin Direct 0.2 mg/dl (0-0.2); Bilirubin,Total 0.6 mg/dl (0.2-1); Calcium 5.6 mg/dl (8.5-10.1); Creatinine Clr Calc Pharmacy 29.3 ml/min; Est GFR (African American) 23.3; Est GFR (Non-African American) 20.1; Magnesium 1.8 mg/dl (1.8-2.4); Phosphorus 4.5 mg/dl (2.5-4.9); Potassium 2.8 mmol/L (3.5-5.1); Total Protein 4.3 gm/dl (6.4-8.2)
[2019-10-19] MEDS ORDERED: CALCIUM GLUCONATE 10% 1,000 MG in SODIUM CHLORIDE 0.9% 50 ML IV STA (05:33)
[2019-10-19] MEDS: POTASSIUM CHLORIDE / WTR 10 MEQ/100 ML PLCT IV SCH ×6 (05:59→21:34)
[2019-10-19 06:08] LABS: Hematocrit (blood only) 21.9 % (37-47); Hemoglobin 7.5 g/dL (12.0-16.0); Mean Corpuscular Hemoglobin 28.7 pg (25-34); Mean Corpuscular Hgb Conc 34.2 g/dL (32-36); Mean Corpuscular Volume 83.9 fL (80-100); Platelet Count 14 K/uL (130-400); RDW Coefficient of Variation 15.1 % (11.5-14.5); RDW Standard Deviation 46.8 fL (36.4-46.3); Red Blood Count 2.61 M/uL (4.2-5.4); Reticulocyte % < 0.5 % (0.5-2.0); Reticulocytes # < 0.02 10^6/uL (0.02-0.10)
--- NOTE | 2019-10-19 06:09 | Critical Care Progress Note ---
Date of Service October 19, 2019 Assessment & Plan (1) Hydronephrosis with urinary obstruction due to ureteral calculus: Reason Critically Ill: 49-year-old female admitted with sepsis from urinary source and retained right sided ureteral calculus, with complicating NSTEMI and subsequent volume overload in the setting of aggressive fluid resuscitation. Patient was sent to the ICU for hemodynamic monitoring and possible need for impending airway protection. 24 hr events: Patient was taken to the OR for removal of obstructive R ureteral stone and stent placement. She was intubated and mechanically ventilated, extubated 10/19. Continues to IV zosyn for gram - bacteremia (per OSH cultures). She was started on a bicarb drip. Overnight platelets decreased to 14k. She was transfused 1 unit of platelets and 1 unit of blood. Urine output increasing, creatine declining. Troponin downtrended. Neuro: [facility] ICU: Negative - sedation weaned * Anxiety/depression: Hold home medications with current altered mental status. Cardiac: * NSTEMI - likely secondary to demand ischemia (sepsis being high output state) - troponin peaked to 6.8 trended down. - EKG today showing sinus tach, no futher ST segment changes * Cardiomyopathy - Echo 10/18 showing reduced EF 25-30%. Etiology acute in the setting of increased demand (septic state) vs. chronic, non-ischemic cardiomyopathy - cardiology following - repeat echo 10/20 * CHF - likely secondary to above cardiomyopathy. CXR from today reviewed, showing pulmonary vascular congestion without pleural effusions. No maintenance fluids; only fluid is IV zosyn ad bicarb with KCl rider. - repeat echo as above Respiratory: * Acute respiratory failure with hypoxia: patient extubated today. Satting 90% on 4L via NC. CXR showing pulmonary vascular congestion without pleural effusions. GI: * NPO * stress ulcer ppx with IV pepcid (indication is 48 hour ventilator use) RENAL/LYTES: * Acute Renal Failure - cr elevated to 3.27 on admission; down to 2.65 today. as for etiology, patient did have post-renal source (obstructive stone); likely prerenal component as well due to hypovolemia. - patient is +2.8L since admission. maintenance fluids d/c due to pulmonary vascular congestion * Electrolyte derangements: Ca corrects to 7.3. K low at 2.8. Ionized calcium 0.91. Replacement ordered. Follow up BMP ordered : * R obstructive ureteral stone s/p removal and stent placement. Kidney aspirate culture growing gram negative bacilli. - On Day 2 of Zosyn. ENDO: * No history of diabetes or thyroid disease. ICU protocol for hyperglycemia HEME: * Acute blood loss anemia. Hgb 7.2 today, s/p transfusion 1 unit pRBCs. - Stools Hemoccult + - Will repeat CBC. * Thrombocytopenia - platelets 14k this morning; s/p transfusion 1 unit. Heparin platelet antibody negative. Fibrinogen 680. Smear without schistocytes. PT normal at 1 1.9. aPPT elevated 44.8 d-dimer elevated to >6000 on 10/18. although sepsis is risk factor, low concern for DIC at this time given normal fibrinogen and absence of schistocytes. ID: * Sepsis - secondary to urinary source. SIRS criteria met on admission. Lactate elevated to 4.4 on admission, down to 1.0. procal elevated to 159. WBC normal. - stone removed - Currently on Day 2 of IV zosyn. - called [facility] lab today: 09/24 blood cultures drawn at their facility growing gram - bacilli, preliminary report faxed. - kidney aspirate culture obtained in [place] on 10/18 growing gram - bacilli - Nasal MRSA swab negative LINES/IV ACCESS: * PIVs x2 * RIGHT radial arterial line. * Jimenez catheter CODE STATUS: Full Code DVT PROPHYLAXIS: * Heparin drip * SCDs Thank you for allowing us to participate in the care of this patient. Please refer to my attending physician's documentation for any further recommendations. Admission and Anticipated Discharge Date Admission Date: October 18, 2019 Supervising Physician Co-Signing Physician Notes Dr. Dubon was resident physician during care of patient. I separately evaluated patient for raines portions of the history and the exam. I was present during the critical portion of medical decision making, and I discussed the case with the resident. I generally agree with the findings and plan. Patient was discussed on multidisciplinary rounds. Continue broad-spectrum antibiotics, awaiting sensitivities from [facility]. Repeat echo cardiogram pending however hemodynamics have improved. Gram-negative sepsis, patient remains critically ill Subjective Patient in ICU, on mechanical ventilator. Family members present at bedside. Review of Systems Review of Systems: Unobtainable due to endotracheal tube Physical Exam Constitutional: WD/WN, vitals as above ENMT: external ear and nose normal, oropharynx normal ETT in place Neck: normal visual inspection and trachea midline Respiratory: normal respiratory effort, lungs clear to auscultation Auscultation: no crackles, no rales, no rhonchi, no wheezes and no pleural rub Cardiovascular: RRR, no murmur, no edema Heart Sounds: normal S1 and normal S2 Gastrointestinal (Abdomen): normal bowel sounds, soft, nontender, no hepatos plenomegaly Skin: no rashes, warm and dry Genitourinary: Jimenez in place draining dark urine with visible blood clots Results & Data ([facility]) Vital Signs (Past 12 Hours) Vital Signs Temp Pulse Pulse Resp BP BP BP 10/19/19 05:17 103 H 21 10/19/19 03:50 37.4 C 10/19/19 03:21 99 H 24 120/85 143/72 H 10/19/19 02:21 95 H 21 124/78 139/78 10/19/19 02:07 98 H 25 H 10/19/19 02:00 96 H 10/19/19 01:30 96 H 10/19/19 01:21 91 H 107/76 10/19/19 01:00 94 H 10/19/19 00:30 96 H 10/19/19 00:21 96 H 98/66 L 10/19/19 00:00 37.4 C 103 H 10/18/19 23:30 101 H 10/18/19 23:27 98 H 10/18/19 23:25 98 H 23 10/18/19 23:21 97 H 123/87 10/18/19 23:00 98 H 10/18/19 22:30 99 H 10/18/19 22:21 95 H 111/75 10/18/19 22:00 99 H 10/18/19 21:30 95 H 10/18/19 21:21 94 H 115/72 10/18/19 21:00 94 H 10/18/19 20:30 84 10/18/19 20:26 93 H 22 10/18/19 20:21 93 H 104/71 10/18/19 20:00 37.2 C 95 H 10/18/19 19:30 102 H 10/18/19 19:22 102 H 124/68 10/18/19 19:00 97 H 174/74 H Pulse Ox 10/19/19 05:17 92 10/19/19 03:50 10/19/19 03:21 100 10/19/19 02:21 99 10/19/19 02:07 99 10/19/19 02:00 99 10/19/19 01:30 100 10/19/19 01:21 99 10/19/19 01:00 100 10/19/19 00:30 100 10/19/19 00:21 100 10/19/19 00:00 99 10/18/19 23:30 98 10/18/19 23:27 10/18/19 23:25 99 10/18/19 23:21 99 10/18/19 23:00 99 10/18/19 22:30 98 10/18/19 22:21 98 10/18/19 22:00 99 10/18/19 21:30 99 10/18/19 21:21 99 10/18/19 21:00 99 10/18/19 20:30 99 10/18/19 20:26 99 10/18/19 20:21 100 10/18/19 20:00 99 10/18/19 19:30 98 10/18/19 19:22 98 10/18/19 19:00 99 Critical Care Time Critical Care Time: Yes Total Critical Care Time: 50 I have personally spent 50 minutes of critical care time in the direct management of this patient. This is a life/limb threatening event. This includes time spent evaluating patient, direct bedside care, chart review, placing orders, interpretation of diagnostic studies, discussion with consultants, patient, and/or family members regarding treatment decisions, as well as other required patient management activities. This time is exclusive of all separately billable procedures, and teaching time and separate from and in addition to any other critical care service time. Resident Activity Tracking Resident Involvement: Resident Care Provided Care Provided: Adult [facility]
[2019-10-19 06:12] LABS: Dohle Bodies 1+; Echinocytes 1+; Eosinophils # (auto) 0.06 K/uL (0-0.5); Eosinophils % (auto) 0.6 %; Immature Granulocytes # (auto) 0.18 K/uL (0.00-0.02); Immature Granulocytes % (auto) 1.8 %; Lymphocytes # (auto) 0.56 K/uL (1.2-3.4); Lymphocytes % (auto) 5.7 %; Monocytes # (auto) 0.17 K/uL (0.11-0.59); Monocytes % (auto) 1.7 %; Neutrophils # (auto) 8.93 K/uL (1.4-6.5); Neutrophils % (auto) 90.2 %; Toxic Vacuolation 1+
[2019-10-19] MEDS ORDERED: SODIUM CHLORIDE 0.9% 250 ML IV PRN (06:24)
--- NOTE | 2019-10-19 07:30 | XRay Report ---
XR chest 1V portable CLINICAL HISTORY: Respiratory failure COMPARISON STUDY: 07/18/2020 FINDINGS: The cardiac and mediastinal contours remain stable. There is an endotracheal tube 23 mm abo ve the reinier.[There are persistent bilateral mixed interstitial and alveolar opacities. An element o f pulmonary vascular congestion is suspected. There are no significant pleural effusions. IMPRESSION: Stable findings. ACT 112: Negative or not required by law. Electronically signed by: Jam Araujo M.D. 10/19/2019 7:28 AM
--- NOTE | 2019-10-19 07:58 | Anesthesiology Progress Note ---
Date of Service October 19, 2019 Anesthesia Post Procedure Vital Signs Vital Signs: Temp Pulse Pulse Resp BP BP BP 10/19/19 07:31 101 H 123/75 10/19/19 07:30 101 H 10/19/19 07:16 37.1 C 94 H 24 122/82 10/19/19 07:15 101 H 10/19/19 07:00 99 H 10/19/19 06:45 100 H 10/19/19 06:30 99 H 10/19/19 06:29 99 H 25 H 10/19/19 06:21 97 H 98 H 33 H 115/78 115/78 10/19/19 06:15 101 H 10/19/19 06:00 104 H 10/19/19 05:45 103 H 10/19/19 05:30 102 H 10/19/19 05:21 102 H 102 H 39 H 104/71 104/71 10/19/19 05:17 103 H 21 10/19/19 05:15 104 H 10/19/19 05:00 106 H 10/19/19 04:45 103 H 10/19/19 04:30 100 H 10/19/19 04:21 96 H 107/79 10/19/19 04:15 103 H 10/19/19 04:00 104 H 10/19/19 03:50 37.4 C 10/19/19 03:45 102 H 10/19/19 03:30 102 H 10/19/19 03:21 105 H 99 H 24 120/85 120/85 10/19/19 03:15 99 H 10/19/19 03:00 99 H 10/19/19 02:45 98 H 10/19/19 02:30 97 H 10/19/19 02:21 93 H 95 H 21 124/78 124/78 10/19/19 02:15 97 H 10/19/19 02:07 98 H 25 H 10/19/19 02:00 96 H 10/19/19 01:45 96 H 10/19/19 01:30 96 H 10/19/19 01:21 91 H 107/76 10/19/19 01:15 96 H 10/19/19 01:00 94 H 10/19/19 00:45 96 H 10/19/19 00:30 96 H 10/19/19 00:21 96 H 98/66 L 02/27/20 00:15 96 H 10/19/19 00:00 37.4 C 103 H 10/18/19 23:45 102 H 10/18/19 23:30 101 H 10/18/19 23:27 98 H 10/18/19 23:25 98 H 23 10/18/19 23:21 97 H 123/87 10/18/19 23:15 100 H 10/18/19 23:00 98 H 10/18/19 22:45 95 H 10/18/19 22:30 99 H 10/18/19 22:21 95 H 111/75 10/18/19 22:15 97 H 10/18/19 22:00 99 H 10/18/19 21:45 97 H 10/18/19 21:30 95 H 10/18/19 21:21 94 H 115/72 10/18/19 21:15 94 H 10/18/19 21:00 94 H 10/18/19 20:45 93 H 10/18/19 20:30 84 10/18/19 20:26 93 H 22 10/18/19 20:21 93 H 104/71 10/18/19 20:15 94 H 10/18/19 20:00 37.2 C 95 H 10/18/19 19:45 99 H 10/18/19 19:30 102 H 10/18/19 19:22 102 H 124/68 10/18/19 19:15 97 H 10/18/19 19:00 97 H 174/74 H 10/18/19 18:45 96 H 10/18/19 18:30 98 H 158/74 H 10/18/19 18:15 100 H 10/18/19 18:01 101 H 10/18/19 18:00 100 H 161/70 H 10/18/19 17:45 103 H 10/18/19 17:31 103 H 10/18/19 17:15 103 H 10/18/19 17:05 101 H 28 H 10/18/19 17:00 100 H 151/67 H 10/18/19 16:45 102 H 10/18/19 16:30 100 H 10/18/19 16:15 102 H 10/18/19 16:00 37.3 C 101 H 132/70 10/18/19 15:45 102 H 02/26/20 15:31 102 H 10/18/19 15:30 102 H 133/65 10/18/19 15:15 103 H 10/18/19 14:45 37.1 C 101 H 24 129/71 10/18/19 14:31 37.1 C 106 H 24 123/75 10/18/19 14:30 106 H 83/65 L 10/18/19 14:00 37.2 C 104 H 138/81 10/18/19 13:12 105 H 34 H 10/18/19 13:01 106 H 115/87 10/18/19 12:00 97 H 117/67 10/18/19 11:12 107 H 174/96 H 10/18/19 11:00 110 H 33 H 174/96 H 10/18/19 10:58 111 H 37 H 162/118 H 10/18/19 10:53 112 H 36 H 170/104 H 10/18/19 10:48 115 H 37 H 213/92 H 10/18/19 10:46 36.5 C 112 H 36 H 170/104 H 10/18/19 10:43 113 H 36 H 189/129 H 10/18/19 10:40 113 H 38 H 10/18/19 10:38 110 H 39 H 193/100 H 10/18/19 10:36 110 H 44 H 193/100 H 10/18/19 10:33 112 H 41 H 212/110 H 10/18/19 10:28 112 H 40 H 189/113 H 10/18/19 10:26 111 H 41 H 189/113 H 10/18/19 10:23 104 H 33 H 141/93 H 10/18/19 10:18 37.2 C 103 H 29 H 121/86 10/18/19 10:16 36.7 C 105 H 40 H 121/86 10/18/19 09:07 20 10/18/19 09:02 106 H 30 H 128/99 10/18/19 08:18 37 C 103 H 163/95 H 10/18/19 08:02 37.1 C 107 H 33 H 127/99 10/18/19 08:00 110 H 167/98 H BP Pulse Ox 10/19/19 07:31 90 10/19/19 07:30 94 10/19/19 07:16 93 02/27/20 07:15 93 10/19/19 07:00 94 10/19/19 06:45 100 10/19/19 06:30 91 10/19/19 06:29 136/74 93 10/19/19 06:21 129/69 90 10/19/19 06:15 91 10/19/19 06:00 91 10/19/19 05:45 91 10/19/19 05:30 92 10/19/19 05:21 124/65 92 10/19/19 05:17 92 10/19/19 05:15 92 10/19/19 05:00 92 10/19/19 04:45 94 10/19/19 04:30 94 10/19/19 04:21 97 10/19/19 04:15 95 10/19/19 04:00 94 10/19/19 03:50 10/19/19 03:45 94 10/19/19 03:30 95 10/19/19 03:21 143/72 H 99 10/19/19 03:15 99 10/19/19 03:00 98 10/19/19 02:45 99 10/19/19 02:30 98 10/19/19 02:21 139/78 98 10/19/19 02:15 100 10/19/19 02:07 99 10/19/19 02:00 99 10/19/19 01:45 99 10/19/19 01:30 100 10/19/19 01:21 99 10/19/19 01:15 100 10/19/19 01:00 100 10/19/19 00:45 100 10/19/19 00:30 100 10/19/19 00:21 100 10/19/19 00:15 100 10/19/19 00:00 99 10/18/19 23:45 99 10/18/19 23:30 98 10/18/19 23:27 10/18/19 23:25 99 10/18/19 23:21 99 10/18/19 23:15 99 10/18/19 23:00 99 10/18/19 22:45 98 10/18/19 22:30 98 10/18/19 22:21 98 10/18/19 22:15 98 10/18/19 22:00 99 10/18/19 21:45 99 02/26/20 21:30 99 10/18/19 21:21 99 10/18/19 21:15 99 10/18/19 21:00 99 10/18/19 20:45 98 10/18/19 20:30 99 10/18/19 20:26 99 10/18/19 20:21 100 10/18/19 20:15 99 10/18/19 20:00 99 10/18/19 19:45 99 10/18/19 19:30 98 10/18/19 19:22 98 10/18/19 19:15 99 10/18/19 19:00 99 10/18/19 18:45 98 10/18/19 18:30 98 10/18/19 18:15 98 10/18/19 18:01 99 10/18/19 18:00 97 10/18/19 17:45 97 10/18/19 17:31 97 10/18/19 17:15 97 10/18/19 17:05 98 10/18/19 17:00 99 10/18/19 16:45 100 10/18/19 16:30 100 10/18/19 16:15 10/18/19 16:00 10/18/19 15:45 10/18/19 15:31 10/18/19 15:30 10/18/19 15:15 10/18/19 14:45 100 10/18/19 14:31 100 10/18/19 14:30 100 10/18/19 14:00 100 10/18/19 13:12 100 10/18/19 13:01 96 10/18/19 12:00 10/18/19 11:12 10/18/19 11:00 95 10/18/19 10:58 98 10/18/19 10:53 97 10/18/19 10:48 98 10/18/19 10:46 97 10/18/19 10:43 94 10/18/19 10:40 97 10/18/19 10:38 94 10/18/19 10:36 94 10/18/19 10:33 10/18/19 10:28 10/18/19 10:26 86 L 10/18/19 10:23 10/18/19 10:18 10/18/19 10:16 83 L 10/18/19 09:07 10/18/19 09:02 97 10/18/19 08:18 10/18/19 08:02 97 10/18/19 08:00 Notes Mental Status: see notes below (pt intubated; unable to participate in evaluation;) Airway Patency, RR, SpO2: see Notes below (pt is intubated; ) BP & HR: stable & adequate (BP: 122/69; HR 101) Hydration State: stable & adequate Anesthetic Complications: no major complications apparent
--- NOTE | 2019-10-19 08:41 | Urology Progress Note ---
Date of Service October 19, 2019 Assessment & Plan (1) Acute kidney injury: (2) Right ureteral stone: (3) Hydronephrosis with urinary obstruction due to ureteral calculus: 49 year-old female patient admitted with altered mental status, acute respiratory failure, elevated troponin, sepsis, and 5 mm obstructing right proximal ureteral stone. -Patient POD #1 cystoscopy with right aspiration, retrograde pyelogram, and stent insertion. -Remains in ICU - care managed by intensivists. -Creatinine improved today, continue to monitor. -Kidney aspirate culture pending. -Blood cultures prelim no growth. -IV antibiotics per primary team. -When patient clinically stable, will need to discuss outpatient follow-up with urology service to discuss stone management. -Continue to follow while inpatient. Subjective Patient examined this morning POD #1 cystoscopy with right aspiration, retrograde pyelogram, and stent insertion. Currently intubated. Does respond to verbal stimuli however falls back to sleep quickly. Family at bedside, discussed updates with her brother and sister in-law. Her brother notes she did have pain earlier in the morning, received IV Fentanyl. Jimenez catheter intact draining dark red urine with small clots. Afebrile overnight. Wbc 9.90 Hgb 7.5 Creatinine 2.65 Blood cultures prelim no growth. Kidney aspirate culture pending. Patient's brother had several questions which were answered during time of exam. Review of Systems Constitutional: as per Subjective / HPI Genitourinary: as per Subjective / HPI Neurologic: as per Subjective / HPI Physical Exam Constitutional: + ill appearing and comfortable; no acute distress Patient responds to verbal stimuli. Respiratory: no audible wheezes Patient intubated, does not appear in distress, normal respiratory rate. Gastrointestinal (Abdomen): Abdomen soft, non-distended. No rigidity or guarding. Psychiatric: Orientation not examined at time of exam. Results & Data Vital Signs (Past 12 Hours) Vital Signs Temp Pulse Pulse Resp BP BP BP 10/19/19 07:31 101 H 123/75 10/19/19 07:30 101 H 10/19/19 07:16 37.1 C 94 H 24 122/82 10/19/19 07:15 101 H 10/19/19 07:00 99 H 10/19/19 06:45 100 H 10/19/19 06:30 99 H 10/19/19 06:29 99 H 25 H 136/74 10/19/19 06:21 97 H 98 H 33 H 115/78 115/78 129/69 10/19/19 06:15 101 H 10/19/19 06:00 104 H 10/19/19 05:45 103 H 10/19/19 05:30 102 H 10/19/19 05:21 102 H 102 H 39 H 104/71 104/71 124/65 10/19/19 05:17 103 H 21 10/19/19 05:15 104 H 10/19/19 05:00 106 H 10/19/19 04:45 103 H 10/19/19 04:30 100 H 10/19/19 04:21 96 H 107/79 10/19/19 04:15 103 H 10/19/19 04:00 104 H 10/19/19 03:50 37.4 C 10/19/19 03:45 102 H 10/19/19 03:30 102 H 10/19/19 03:21 105 H 99 H 24 120/85 120/85 143/72 H 10/19/19 03:15 99 H 10/19/19 03:00 99 H 10/19/19 02:45 98 H 10/19/19 02:30 97 H 10/19/19 02:21 93 H 95 H 21 124/78 124/78 139/78 10/19/19 02:15 97 H 10/19/19 02:07 98 H 25 H 10/19/19 02:00 96 H 10/19/19 01:45 96 H 10/19/19 01:30 96 H 10/19/19 01:21 91 H 107/76 10/19/19 01:15 96 H 10/19/19 01:00 94 H 10/19/19 00:45 96 H 10/19/19 00:30 96 H 10/19/19 00:21 96 H 98/66 L 10/19/19 00:15 96 H 10/19/19 00:00 37.4 C 103 H 10/18/19 23:45 102 H 10/18/19 23:30 101 H 10/18/19 23:27 98 H 10/18/19 23:25 98 H 23 10/18/19 23:21 97 H 123/87 10/18/19 23:15 100 H 10/18/19 23:00 98 H 10/18/19 22:45 95 H 10/18/19 22:30 99 H 10/18/19 22:21 95 H 111/75 10/18/19 22:15 97 H 10/18/19 22:00 99 H 10/18/19 21:45 97 H 10/18/19 21:30 95 H 10/18/19 21:21 94 H 115/72 10/18/19 21:15 94 H 10/18/19 21:00 94 H 10/18/19 20:45 93 H Pulse Ox 10/19/19 07:31 90 10/19/19 07:30 94 10/19/19 07:16 93 10/19/19 07:15 93 10/19/19 07:00 94 10/19/19 06:45 100 10/19/19 06:30 91 10/19/19 06:29 93 10/19/19 06:21 90 10/19/19 06:15 91 10/19/19 06:00 91 10/19/19 05:45 91 10/19/19 05:30 92 10/19/19 05:21 92 10/19/19 05:17 92 10/19/19 05:15 92 10/19/19 05:00 92 10/19/19 04:45 94 10/19/19 04:30 94 10/19/19 04:21 97 10/19/19 04:15 95 10/19/19 04:00 94 10/19/19 03:50 10/19/19 03:45 94 10/19/19 03:30 95 10/19/19 03:21 99 10/19/19 03:15 99 10/19/19 03:00 98 10/19/19 02:45 99 10/19/19 02:30 98 10/19/19 02:21 98 10/19/19 02:15 100 10/19/19 02:07 99 10/19/19 02:00 99 10/19/19 01:45 99 10/19/19 01:30 100 10/19/19 01:21 99 10/19/19 01:15 100 10/19/19 01:00 100 10/19/19 00:45 100 10/19/19 00:30 100 10/19/19 00:21 100 10/19/19 00:15 100 10/19/19 00:00 99 10/18/19 23:45 99 10/18/19 23:30 98 10/18/19 23:27 10/18/19 23:25 99 10/18/19 23:21 99 10/18/19 23:15 99 10/18/19 23:00 99 10/18/19 22:45 98 10/18/19 22:30 98 10/18/19 22:21 98 10/18/19 22:15 98 10/18/19 22:00 99 10/18/19 21:45 99 10/18/19 21:30 99 10/18/19 21:21 99 10/18/19 21:15 99 10/18/19 21:00 99 10/18/19 20:45 98 PG Care Time/CCT Total # of Minutes Spent Total Time Spent with Patient: Total time spent is greater than 50% in coordination of care (as documented) at patient's floor/unit and/or counseling patient: Coding Level of Care Code 44554 Subseq Hosp Care Lvl 2 Diagnoses Acute kidney injury N17.9 Right ureteral stone N20.1 Hydronephrosis with urinary obstruction due to ureteral calculus N13.2
--- NOTE | 2019-10-19 09:32 | Cardiology Progress Note ---
Date of Service October 19, 2019 Assessment & Plan (1) Cardiomyopathy: She has a cardiomyopathy based on echocardiography on October 18, 2019 which to my knowledge she does not have historically. I suspect it is due to her presentation with sepsis and may recover quickly, however could be longer standing and it is possible she has a longstanding nonischemic cardiomyopathy. The elevated troponin suggest a more acute process and she does not have evidence of an acute coronary event. I suspect this is all acute and may recover quickly, I am going to repeat the echocardiogram tomorrow morning as a limited study to see whether there is any change in her ejection fraction. (2) Elevated troponin: She has a moderately elevated troponin (2.2) on admission which increased to 6.8 on the second and third reading, she has not had one since, this is in the range that this could be due to an acute global event due to her sepsis. I would like to see what her troponin is now and will order that. Perhaps a stress test would be in order in the distant future after full recovery. (3) CHF (congestive heart failure): She had evidence of heart failure on chest x-ray on admission and had left ventricular dysfunction and a markedly elevated BNP. Her heart failure is probably on the basis of LV dysfunction as noted above. I would be cautious with fluids and if possible and I would diuresis her, she has been very positive since admission. Her blood pressure does not appear to have been low since presentations. Admission and Anticipated Discharge Date Admission Date: October 18, 2019 Subjective She remains intubated, she does respond to verbal stimuli by opening her eyes. Physical Exam Physical Exam: Constitutional: She is intubated and sedated, she does not appear to be in distress but is not responsive. HEENT: Unremarkable except for the endotracheal tube Neck: No jugular venous distention, carotid pulses are normal and equal bilaterally without bruits. Pulmonary: Crackles (examined supine) to auscultation bilaterally. Cardiac: Regular somewhat rapid rhythm with no murmur, gallop or rub. Abdomen: Soft, nontender with normal bowel sounds. Extremities: No edema. Distal pulses intact. Neurologic: Very limited exam due to sedation. Skin: No rash, ecchymoses or petechiae. Results & Data ([facility]) Vital Signs (Past 12 Hours) Vital Signs Temp Pulse Pulse Resp BP BP BP 10/19/19 09:17 37.2 C 96 H 22 127/83 10/19/19 09:02 96 H 26 H 135/73 10/19/19 09:01 100 H 129/79 10/19/19 09:00 97 H 10/19/19 08:46 100 H 127/81 10/19/19 08:45 102 H 10/19/19 08:31 99 H 117/80 10/19/19 08:30 37.0 C 100 H 10/19/19 08:16 103 H 109/76 10/19/19 08:15 103 H 10/19/19 08:01 103 H 106/70 10/19/19 08:00 104 H 10/19/19 07:46 103 H 132/90 10/19/19 07:45 37.0 C 102 H 10/19/19 07:32 100 H 10/19/19 07:31 101 H 123/75 10/19/19 07:30 101 H 10/19/19 07:16 37.1 C 94 H 24 122/82 10/19/19 07:15 101 H 10/19/19 07:00 99 H 10/19/19 06:45 100 H 10/19/19 06:30 99 H 10/19/19 06:29 99 H 25 H 136/74 10/19/19 06:21 97 H 98 H 33 H 115/78 115/78 129/69 10/19/19 06:15 101 H 10/19/19 06:00 104 H 10/19/19 05:45 103 H 10/19/19 05:30 102 H 10/19/19 05:21 102 H 102 H 39 H 104/71 104/71 124/65 10/19/19 05:17 103 H 21 10/19/19 05:15 104 H 10/19/19 05:00 106 H 10/19/19 04:45 103 H 10/19/19 04:30 100 H 10/19/19 04:21 96 H 107/79 10/19/19 04:15 103 H 10/19/19 04:00 104 H 10/19/19 03:50 37.4 C 10/19/19 03:45 102 H 10/19/19 03:30 102 H 10/19/19 03:21 105 H 99 H 24 120/85 120/85 143/72 H 10/19/19 03:15 99 H 10/19/19 03:00 99 H 10/19/19 02:45 98 H 10/19/19 02:30 97 H 10/19/19 02:21 93 H 95 H 21 124/78 124/78 139/78 10/19/19 02:15 97 H 10/19/19 02:07 98 H 25 H 10/19/19 02:00 96 H 10/19/19 01:45 96 H 10/19/19 01:30 96 H 10/19/19 01:21 91 H 107/76 10/19/19 01:15 96 H 10/19/19 01:00 94 H 10/19/19 00:45 96 H 10/19/19 00:30 96 H 10/19/19 00:21 96 H 98/66 L 10/19/19 00:15 96 H 10/19/19 00:00 37.4 C 103 H 10/18/19 23:45 102 H 10/18/19 23:30 101 H 10/18/19 23:27 98 H 10/18/19 23:25 98 H 23 10/18/19 23:21 97 H 123/87 10/18/19 23:15 100 H 10/18/19 23:00 98 H 10/18/19 22:45 95 H 10/18/19 22:30 99 H 10/18/19 22:21 95 H 111/75 10/18/19 22:15 97 H 10/18/19 22:00 99 H 10/18/19 21:45 97 H 10/18/19 21:30 95 H Pulse Ox 10/19/19 09:17 95 10/19/19 09:02 94 10/19/19 09:01 95 10/19/19 09:00 94 10/19/19 08:46 95 10/19/19 08:45 95 10/19/19 08:31 95 10/19/19 08:30 93 10/19/19 08:16 94 10/19/19 08:15 94 10/19/19 08:01 94 10/19/19 08:00 94 10/19/19 07:46 90 10/19/19 07:45 97 10/19/19 07:32 100 10/19/19 07:31 90 10/19/19 07:30 94 10/19/19 07:16 93 10/19/19 07:15 93 10/19/19 07:00 94 10/19/19 06:45 100 10/19/19 06:30 91 10/19/19 06:29 93 10/19/19 06:21 90 10/19/19 06:15 91 10/19/19 06:00 91 10/19/19 05:45 91 10/19/19 05:30 92 10/19/19 05:21 92 10/19/19 05:17 92 10/19/19 05:15 92 10/19/19 05:00 92 10/19/19 04:45 94 10/19/19 04:30 94 10/19/19 04:21 97 10/19/19 04:15 95 10/19/19 04:00 94 10/19/19 03:50 10/19/19 03:45 94 10/19/19 03:30 95 10/19/19 03:21 99 10/19/19 03:15 99 10/19/19 03:00 98 10/19/19 02:45 99 10/19/19 02:30 98 10/19/19 02:21 98 10/19/19 02:15 100 10/19/19 02:07 99 10/19/19 02:00 99 10/19/19 01:45 99 10/19/19 01:30 100 10/19/19 01:21 99 10/19/19 01:15 100 10/19/19 01:00 100 10/19/19 00:45 100 10/19/19 00:30 100 10/19/19 00:21 100 10/19/19 00:15 100 10/19/19 00:00 99 10/18/19 23:45 99 10/18/19 23:30 98 10/18/19 23:27 10/18/19 23:25 99 10/18/19 23:21 99 10/18/19 23:15 99 10/18/19 23:00 99 10/18/19 22:45 98 10/18/19 22:30 98 10/18/19 22:21 98 10/18/19 22:15 98 10/18/19 22:00 99 10/18/19 21:45 99 10/18/19 21:30 99 Laboratory Results Cardiac Enzymes 10/18/19 10/18/19 10/18/19 Range/Units 10:31 12:15 20:19 AST 49 H 55 H 57 H (15-37) U/L Troponin I 6.800 H* 6.850 H* (0-0.045) ng/ml 10/19/19 Range/Units 04:40 AST 34 (15-37) U/L Troponin I (0-0.045) ng/ml Coagulation 10/18/19 10/18/19 10/18/19 Range/Units 12:15 18:05 19:19 PT 12.6 H (9.0-12.0) Seconds APTT Cancelled Cancelled 10/18/19 10/19/19 Range/Units 20:19 04:40 PT 11.9 11.9 (9.0-12.0) Seconds APTT TNP 44.8 H CBC 10/18/19 10/18/19 10/18/19 Range/Units 10:31 12:15 20:19 WBC 9.72 5.44 14.09 H (4.8-10.8) K/uL RBC 3.54 L 3.55 L 3.24 L (4.2-5.4) M/uL Hgb 10.0 L 10.1 L 9.2 L (12.0-16.0) g/dL Hct 30.2 L 30.4 L 27.7 L (37-47) % Plt Count 32 L 34 L 21 L* (130-400) K/uL Neut # (Auto) (1.4-6.5) K/uL Lymph # (Auto) (1.2-3.4) K/uL [place] # (Auto) (0.11-0.59) K/uL Eos # (Auto) (0-0.5) K/uL Baso # (Auto) (0-0.2) K/uL 10/19/19 10/19/19 Range/Units 00:08 04:40 WBC 12.70 H 9.90 (4.8-10.8) K/uL RBC 3.15 L 2.61 L (4.2-5.4) M/uL Hgb 9.0 L 7.5 L (12.0-16.0) g/dL Hct 26.6 L 21.9 L (37-47) % Plt Count 21 L* 14 L* (130-400) K/uL Neut # (Auto) 11.43 H 8.93 H (1.4-6.5) K/uL Lymph # (Auto) 0.75 L 0.56 L (1.2-3.4) K/uL [place] # (Auto) 0.10 L 0.17 (0.11-0.59) K/uL Eos # (Auto) 0.08 0.06 (0-0.5) K/uL Baso # (Auto) 0.01 0.00 (0-0.2) K/uL Comprehensive Metabolic Panel 10/18/19 10/18/19 10/18/19 Range/Units 10:31 12:15 20:19 Sodium 141 140 140 (136-145) mmol/L Potassium 4.7 D 3.9 D 3.5 (3.5-5.1) mmol/L Chloride 114 H 113 H 111 H (98-107) mmol/L Carbon Dioxide 17 L 13 L 20 L (21-32) mmol/L BUN 59 H 61 H 66 H (7-18) mg/dl Creatinine 3.27 H 3.28 H 3.27 H (0.6-1.2) mg/dl Glucose 98 96 101 H (70-99) mg/dl Calcium 7.3 L 7.2 L 6.9 L (8.5-10.1) mg/dl Direct Bilirubin 0.2 0.3 H 0.3 H (0-0.2) mg/dl AST 49 H 55 H 57 H (15-37) U/L ALT 29 30 33 (12-78) U/L Alkaline Phosphatase 232 H 349 H 241 H (45-117) U/L Total Protein 5.7 L 5.9 L 5.7 L (6.4-8.2) gm/dl Albumin 2.2 L 2.2 L 2.0 L (3.4-5.0) gm/dl 10/19/19 10/19/19 Range/Units 00:08 04:40 Sodium 140 145 (136-145) mmol/L Potassium 3.5 2.8 L D (3.5-5.1) mmol/L Chloride 111 H 118 H (98-107) mmol/L Carbon Dioxide 20 L 16 L (21-32) mmol/L BUN 71 H 62 H (7-18) mg/dl Creatinine 3.26 H 2.65 H D (0.6-1.2) mg/dl Glucose 89 70 (70-99) mg/dl Calcium 6.8 L 5.6 L* D (8.5-10.1) mg/dl Direct Bilirubin 0.2 (0-0.2) mg/dl AST 34 (15-37) U/L ALT 24 (12-78) U/L Alkaline Phosphatase 131 H (45-117) U/L Total Protein 4.3 L D (6.4-8.2) gm/dl Albumin 1.5 L (3.4-5.0) gm/dl Intake and Output 10/18/19 10/19/19 10/19/19 22:59 06:59 14:59 Intake Total 1233.083 / 2536.166 825.333 / 2536.166 627 / 627 Output Total 150 / 552 352 / 552 Balance 1083.083 / 1983.166 473.333 / 1984.166 627 / 627 Intake: IV 1233.083 / 2536.166 825.333 / 2536.166 320 / 320 Calcium Gluconate 10% 1,000 mg 60 / 60 In Nss 50 ml @ 240 mls/hr IV NOW STA Rx#:[id number] HEPARIN SODIUM/DEXTROSE 25,000 285.75 / 285.75 units In 500 ml @ 1,350 UNITS/ HR 27 mls/hr IV .[id number] [place] Rx #:[id number] MAGNESIUM SULFATE / D5W 1 gm In 100 / 200 100 ml @ 50 mls/hr IV Q2H [facility] Rx#:[id number] Zosyn 4.5 gm In D5 100 ml @ 30 120.0 / 120.0 120 / 120 mls/hr IV Q12H [facility] Rx#:[id number] K RIDER / WTR 10 meq In 100 ml 100 / 100 200 / 200 @ 100 mls/hr IV Q1H [facility] Rx#: [id number] Sodium Bicarbonate 8.4% 150 Meq 457.333 / 1122.666 665.333 / 1122.666 In Sterile Water 1,000 ml @ 80 mls/hr IV [id number] Rx#: [id number] Vancomycin HCl 1,000 mg In Nss 270 / 270 250 ml @ 125 mls/hr IV NOW ONE Rx#:[id number] Intake (Blood Product) Amt 307 / 307 Packed Cells, Leukoreduced 0 / 0 Unit [id number] Plt Pher Lr Irr 2 Unit 307 / 307 [id number] Output: Urine Amount (Catheter) 150 / 550 350 / 550 Jimenez/Indwelling 150 / 550 350 / 550 # Bowel Movements 2 / 2 Other: Weight 88.1 kg Diagnostic Findings Telemetry: Sinus tachycardia yesterday trending down into sinus rhythm this morning. PG Care Time/CCT Total # of Minutes Spent Total Time Spent with Patient: Total time spent is greater than 50% in coordination of care (as documented) at patient's floor/unit and/or counseling patient: Coding Level of Care Code 07416 Subseq Hosp Care Lvl 3 Diagnoses Cardiomyopathy I42.9 Elevated troponin R79.89 CHF (congestive heart failure) I50.9
[2019-10-19] MEDS: FAMOTIDINE 20 MG in SYRINGE 3 ML IV SCH (10:51)
[2019-10-19 11:52] LABS: Albumin Level 1.9 gm/dl (3.4-5.0); Bilirubin Direct 0.3 mg/dl (0-0.2); Bilirubin,Total 0.8 mg/dl (0.2-1); Total Protein 5.5 gm/dl (6.4-8.2)
[2019-10-19] MEDS: SODIUM BICARBONATE 8.4% 150 MEQ, POTASSIUM CHLORIDE 20 MEQ in WATER, STERILE 1,000 ML IV SCH (12:34)
[2019-10-19 16:45] LABS: Hematocrit (blood only) 25.8 % (37-47); Hemoglobin 9.1 g/dL (12.0-16.0); Mean Corpuscular Hemoglobin 29.2 pg (25-34); Mean Corpuscular Hgb Conc 35.3 g/dL (32-36); Mean Corpuscular Volume 82.7 fL (80-100); Platelet Count 19 K/uL (130-400); RDW Coefficient of Variation 14.7 % (11.5-14.5); RDW Standard Deviation 44.5 fL (36.4-46.3); Red Blood Count 3.12 M/uL (4.2-5.4); White Blood Count 8.75 K/uL (4.8-10.8)
[2019-10-19 16:56] LABS: Mean Platelet Volume 10.7 fL (7.4-10.4)
[2019-10-19 16:57] LABS: Basophils # (auto) 0.01 K/uL (0-0.2); Basophils % (auto) 0.1 %; Dohle Bodies 2+; Eosinophils # (auto) 0.06 K/uL (0-0.5); Eosinophils % (auto) 0.7 %; Immature Granulocytes # (auto) 0.04 K/uL (0.00-0.02); Immature Granulocytes % (auto) 0.5 %; Lymphocytes # (auto) 0.45 K/uL (1.2-3.4); Lymphocytes % (auto) 5.1 %; Monocytes % (auto) 4.6 %; Neutrophils # (auto) 7.79 K/uL (1.4-6.5); Platelet Estimate SIGNIFIC DECREASED (Normal)
[2019-10-19 16:58] LABS: BUN Creatinine Ratio 22.4 (10-20); Calcium 7.4 mg/dl (8.5-10.1); Creatinine Clr Calc Pharmacy 23.1 ml/min; Est GFR (African American) 17.6; Est GFR (Non-African American) 15.2; Potassium 3.3 mmol/L (3.5-5.1)
--- NOTE | 2019-10-19 19:04 | Electrocardiogram Report ---
Test Reason : Blood Pressure : / mmHG Vent. Rate : 098 BPM Atrial Rate : 098 BPM P-R Int : 158 ms QRS Dur : 088 ms QT Int : 372 ms P-R-T Axes : 038 037 039 degrees QTc Int : 474 ms Normal sinus rhythm Normal ECG When compared with ECG of 18-OCT-2019 06:18, No significant change was found Confirmed by Warren Lord ([id number] on 10/19/2019 7:03:40 PM Referred By: Shamar Vazquez Confirmed By:Luisito Lord
--- NOTE | 2019-10-19 22:19 | Hospitalist Progress Note ---
Date of Service October 19, 2019 Assessment & Plan (1) Admitted to intensive care unit: Consult to brand advocate Dr. Stacy and staff. (2) NSTEMI, initial episode of care: The patient will have ordered serial cardiac enzymes, serial EKG's, cardiac rhythm monitoring and a 2-D echocardiogram with Dopplers. Initial troponin at [facility] was 1.5. Trop peaked at 6.8 Consulted cardiology. Appreciate input (3) Acute respiratory failure with hypoxia: Patient is currently intubated for above problem. Consulted ICU team. Will try to extubate later today. (4) Sepsis due to gram-negative UTI: Sepsis due to gram-negative UTI/hydronephrosis with urinary obstruction due to ureteral calculus- Continue empiric treatment vancomycin IV and Zosyn IV. awaiting cultures from [facility].. (5) Hydronephrosis with urinary obstruction due to ureteral calculus: See above (6) Altered mental status: Patient upon first presentation to [facility] on 01/12 had normal mentation. Upon presentation to [facility] ED on the evening of 01/13 she was noted to be confused. Upon arrival to [facility] ICU patient does answer questions appropriately. (7) Anemia: hemoglobin stable at 9.1 will monitor. (8) Metabolic acidosis: Patient has metabolic acidosis. Patient will be started on bicarb drip. Will continue to monitor. Admission and Anticipated Discharge Date Admission Date: October 18, 2019 Subjective Patient is intubated. Patient does not provide any history. Review of Systems Review of Systems: Unobtainable due to endotracheal tube Physical Exam Physical Exam: The patient is lying in bed and in no acute distress. Patient is intubated and sedated. HEENT--PERRL, EOMI, mucous membranes and oropharynx dry. Neck--supple. No JVD. No bruits. Thyroid normal, trachea midline, no adenopathy. Heart--normal S1 and S2. No murmurs, rubs or gallops. Lungs--few coarse breath sounds bilaterally. No respiratory distress, no accessory muscle use. Abdomen--normal bowel sounds and soft. Nontender. Mildly tympanitic. Extremities--no cyanosis or clubbing. Trace bilateral pretibial pitting edema. Dermatologic--normal skin turgor, normal color, no abnormal lymph nodes, no rash. Neurologic--unable to obtain Psychiatric--sedated Results & Data ([facility]) Vital Signs (Past 12 Hours) Vital Signs Temp Pulse Resp BP Pulse Ox 10/19/19 22:00 94 H 17 94 10/19/19 21:28 93 H 30 H 145/91 H 94 10/19/19 21:00 85 23 95 10/19/19 20:28 86 22 130/85 94 10/19/19 20:00 36.9 C 86 25 H 92 10/19/19 19:30 91 H 24 92 10/19/19 19:28 89 27 H 134/92 10/19/19 19:04 91 H 22 136/91 95 10/19/19 19:00 93 H 25 H 97 10/19/19 18:04 90 24 133/90 97 10/19/19 18:00 37.3 C 89 22 133/90 97 10/19/19 17:49 88 21 130/88 97 10/19/19 17:33 84 30 H 131/92 96 10/19/19 17:30 86 21 99 10/19/19 17:18 88 25 H 130/89 98 10/19/19 17:03 89 24 127/90 96 10/19/19 17:00 89 22 96 10/19/19 16:48 88 20 126/93 98 10/19/19 16:33 89 25 H 121/87 96 10/19/19 16:30 89 23 100 10/19/19 16:19 89 23 133/85 98 10/19/19 16:03 90 22 132/87 93 10/19/19 16:00 91 H 23 99 10/19/19 15:48 90 23 130/85 92 10/19/19 15:34 91 H 23 133/86 98 10/19/19 15:30 92 H 25 H 98 10/19/19 15:18 89 21 138/82 100 10/19/19 15:03 86 22 138/91 97 10/19/19 15:00 94 H 23 96 10/19/19 14:45 38.0 C H 100 H 24 96 10/19/19 14:30 92 H 96 10/19/19 14:16 91 H 133/91 92 10/19/19 14:15 93 H 92 10/19/19 14:01 93 H 139/92 99 10/19/19 14:00 84 90 10/19/19 13:46 93 H 136/83 92 10/19/19 13:45 93 H 89 L 10/19/19 13:40 94 H 23 96 10/19/19 13:31 93 H 136/88 99 10/19/19 13:30 93 H 98 10/19/19 13:16 90 128/86 96 10/19/19 13:15 91 H 92 10/19/19 13:01 94 H 128/85 93 10/19/19 13:00 96 H 92 10/19/19 12:46 90 127/82 95 10/19/19 12:45 92 H 97 10/19/19 12:31 92 H 125/83 96 10/19/19 12:30 94 H 97 10/19/19 12:16 90 124/77 97 10/19/19 12:15 93 H 97 10/19/19 12:01 94 H 127/84 97 10/19/19 12:00 95 H 124/77 95 10/19/19 11:46 94 H 118/78 98 10/19/19 11:45 96 H 96 10/19/19 11:31 96 H 113/76 95 10/19/19 11:30 97 H 95 10/19/19 11:25 97 H 15 95 10/19/19 11:16 95 H 115/76 95 10/19/19 11:15 97 H 94 10/19/19 11:02 94 H 99 10/19/19 11:01 93 H 136/94 99 10/19/19 11:00 91 H 99 10/19/19 10:47 94 H 96 10/19/19 10:46 84 134/94 98 10/19/19 10:45 92 H 100 10/19/19 10:35 93 H 22 100 10/19/19 10:31 89 128/85 100 10/19/19 10:30 92 H 100 PG Care Time/CCT Total # of Minutes Spent Total Time Spent with Patient: Total time spent is greater than 50% in coord ination of care (as documented) at patient's floor/unit and/or counseling patient: Coding Level of Care Code 96915 Subseq Hosp Care Lvl 3 Diagnoses Admitted to intensive care unit Z78.9 NSTEMI, initial episode of care I21.4 Acute respiratory failure with hypoxia J96.01 Sepsis due to gram-negative UTI A41.50; N39.0 Hydronephrosis with urinary obstruction due to ureteral calculus N13.2 Altered mental status R41.82 Anemia D64.9 Metabolic acidosis E87.2 Time Spent (min) 35
[2019-10-20] MEDS ORDERED: ACETAMINOPHEN 1,000 MG/100 ML VIAL IV STA (00:24)
[2019-10-20 00:26] LABS: Base Excess VBG -0.1 mEq/L; pH VBG 7.5 (7.36-7.41)
[2019-10-20 00:35] LABS: BUN Creatinine Ratio 23.9 (10-20); Creatinine Clr Calc Pharmacy 23.5 ml/min; Est GFR (African American) 17.9; Est GFR (Non-African American) 15.4; Potassium 3.5 mmol/L (3.5-5.1)
[2019-10-20 00:37] LABS: Hemoglobin 8.8 g/dL (12.0-16.0); Mean Corpuscular Hemoglobin 27.7 pg (25-34); Mean Corpuscular Hgb Conc 33.8 g/dL (32-36); Mean Corpuscular Volume 81.8 fL (80-100); Mean Platelet Volume 10.3 fL (7.4-10.4); Platelet Count 12 K/uL (130-400); Platelet Estimate SIGNIFIC DECREASED (Normal); RDW Coefficient of Variation 14.6 % (11.5-14.5); RDW Standard Deviation 44.1 fL (36.4-46.3); Red Blood Count 3.18 M/uL (4.2-5.4); White Blood Count 7.35 K/uL (4.8-10.8)
[2019-10-20] MEDS: SODIUM BICARBONATE 8.4% 150 MEQ, POTASSIUM CHLORIDE 20 MEQ in WATER, STERILE 1,000 ML IV SCH (02:52)
[2019-10-20 04:23] LABS: Base Excess ABG 0.2 mEq/L (-9-1.8); HCO3 ABG 23 mmol/L (19-24); Oxygen Saturation ABG 90.6 % (90-95); PCO2 ABG 28 mmHg (35-46); PO2 ABG 58 mmHg (80-95)
[2019-10-20 04:30] LABS: INR 1.1 (0.9-1.1); Partial Thromboplastin Ratio 1.2; Partial Thromboplastin Time 32.5 Seconds (21.0-31.0); Prothrombin Time 10.9 Seconds (9.0-12.0)
[2019-10-20 04:31] LABS: Allen Test Pos (Pos)
[2019-10-20 04:46] LABS: Albumin Level 1.7 gm/dl (3.4-5.0); BUN Creatinine Ratio 23.4 (10-20); Calcium 7.6 mg/dl (8.5-10.1); Creatinine Clr Calc Pharmacy 24.3 ml/min; Est GFR (African American) 18.7; Est GFR (Non-African American) 16.1; Hematocrit (blood only) 24.5 % (37-47); Hemoglobin 8.5 g/dL (12.0-16.0); Magnesium 2.8 mg/dl (1.8-2.4); Mean Corpuscular Hemoglobin 28.4 pg (25-34); Mean Corpuscular Hgb Conc 34.7 g/dL (32-36); Mean Corpuscular Volume 81.9 fL (80-100); Platelet Count 14 K/uL (130-400); Potassium 3.3 mmol/L (3.5-5.1); RDW Coefficient of Variation 14.6 % (11.5-14.5); Red Blood Count 2.99 M/uL (4.2-5.4); White Blood Count 7.27 K/uL (4.8-10.8)
[2019-10-20 04:47] LABS: Bilirubin,Total 1.2 mg/dl (0.2-1); Thyroid Stimulating Hormone 2.58 uIu/ml (0.300-4.500); Total Protein 5.5 gm/dl (6.4-8.2)
[2019-10-20 04:49] LABS: Basophils # (auto) 0.01 K/uL (0-0.2); Basophils % (auto) 0.1 %; Dohle Bodies 1+; Eosinophils # (auto) 0.04 K/uL (0-0.5); Eosinophils % (auto) 0.6 %; Immature Granulocytes # (auto) 0.04 K/uL (0.00-0.02); Immature Granulocytes % (auto) 0.6 %; Lymphocytes # (auto) 0.61 K/uL (1.2-3.4); Lymphocytes % (auto) 8.4 %; Monocytes # (auto) 0.47 K/uL (0.11-0.59); Monocytes % (auto) 6.5 %; Neutrophils % (auto) 83.8 %; Platelet Estimate SIGNIFIC DECREASED (Normal)
[2019-10-20 04:51] LABS: pH ABG 7.52 (7.35-7.45)
[2019-10-20 04:58] LABS: Bilirubin Direct 0.7 mg/dl (0-0.2); Phosphorus 3.5 mg/dl (2.5-4.9)
[2019-10-20] MEDS: PIPERACILLIN/TAZOBACTAM 4.5 GM in DEXTROSE 5% 100 ML IV SCH ×3 (05:19→21:54)
--- NOTE | 2019-10-20 06:18 | Critical Care Progress Note ---
Date of Service October 20, 2019 Assessment & Plan (1) Hydronephrosis with urinary obstruction due to ureteral calculus: Reason Critically Ill: 49-year-old female admitted with sepsis from urinary source and retained right sided ureteral calculus, with complicating NSTEMI and subsequent volume overload in the setting of aggressive fluid resuscitation. Patient was sent to the ICU for hemodynamic monitoring and possible need for impending airway protection. 24 hr events: Patient was extubated 10/19. Continues on IV zosyn for gram - bacteremia (per OSH cultures). Put out >1.2 liters of urine over past day. Cr peaked, but now trending down. Bicarb drip discontinued. Platelets remain low at 14k. Oxygen requirement decreasing. Tolerating a clear diet. Stable and ready for medical downgrade. Neuro: CAM ICU: Negative - at present she is alert and oriented x 3, but with intermittent confusion. likely secondary to ICU delirium. Continue to monitor and reorient. * Anxiety/depression: Hold home medications with current altered mental status. Cardiac: * NSTEMI - likely secondary to demand ischemia (sepsis being high output state) - troponin peaked to 6.8 and has since trended down. * Cardiomyopathy - Echo 10/18 showing reduced EF 25-30%. Repeat echo today showing mild improvement, EF 35-40%. Etiology acute in the setting of increased demand (septic state) vs. chronic, non-ischemic cardiomyopathy - cardiology following, appreciate recs * CHF - likely secondary to above cardiomyopathy. CXR from today reviewed, showing pulmonary vascular congestion without pleural effusions. No maintenance fluids; only fluid is IV zosyn - repeat echo as above Respiratory: * Acute respiratory failure with hypoxia: resolved. extubated 10/19. Satting 92% on 2L via NC. CXR today reviewed: showing worsening pulmonary vascular congestion without pleural effusions. GI: * clera liquid diet- advance as tolerated * stress ulcer ppx with IV pepcid (indication is 48 hour ventilator use) RENAL/LYTES: * Acute Renal Failure - cr elevated to 3.27 on admission; peaked at 3.34. down to 3.18 today. as for etiology, patient did have post-renal source (obstructive stone); likely prerenal component as well due to hypovolemia. - patient is +3.4L since admission. maintenance fluids d/c due to pulmonary vascular congestion * Electrolyte derangements: Ca corrects to 9.4 K low at 3.3. Replacement ordered. : * R obstructive ureteral stone s/p removal and stent placement. Retrograde py eloureterogram confirming proper stent placement. Kidney aspirate culture growing gram negative bacilli. - On Day 3 of Zosyn. ENDO: * No history of diabetes or thyroid disease. ICU protocol for hyperglycemia HEME: * Acute blood loss anemia. Hgb 8.5 today, s/p transfusion 1 unit pRBCs. - Stools Hemoccult + - trend CBC; transfuse < 7 * Thrombocytopenia - platelets remains at 14k. s/p transfusion 1 unit 10/19. Heparin platelet antibody negative. Fibrinogen 680. Smear without schistocytes. PT normal at 11.9. aPPT elevated 44.8 d-dimer elevated to >6000 on 10/18. although sepsis is risk factor, low concern for DIC at this time given normal fibrinogen and absence of schistocytes. ID: * Sepsis - secondary to urinary source. SIRS criteria met on admission. Lactate elevated to 4.4 on admission, down to 1.0. procal elevated to 159 on admission. WBC normal. - stone removed, stent placed. - Currently on Day 3 of IV zosyn. - called [facility] lab 10/19: 09/24 blood cultures drawn at their facility growing gram - bacilli, preliminary report faxed. Full report expected to be faxed - kidney aspirate culture obtained in [place] on 10/18 growing gram - bacilli - Nasal MRSA swab negative LINES/IV ACCESS: * PIVs x2. * Marquis catheter CODE STATUS: Full Code DVT PROPHYLAXIS: SCDs Thank you for allowing us to participate in the care of this patient. Please refer to my attending physician's documentation for any further recommendations. Admission and Anticipated Discharge Date Admission Date: October 18, 2019 Supervising Physician Co-Signing Physician Notes Dr. Dubon was resident physician during care of patient. I separately evaluated patient for raines portions of the history and the exam. I was present during the critical portion of medical decision making, and I discussed the case with the resident. I generally agree with the findings and plan. Patient was discussed on multidisciplinary rounds. Continue broad-spectrum antibiotics, awaiting sensitivities from [facility], we have contacted [facility] and sensitivities are still pending. Given alkalosis and fluid retention we will gently diurese the patient. Increasing oxygen requirements: Acute hypoxemic respiratory failure secondary to third spacing related to gram-neg ative sepsis. Continuing broad-spectrum. Subjective Patient in ICU. Expresses desire to go home. Generally feels uncomfortable, but unable to indentify focal areas. Review of Systems Review of Systems: All systems reviewed & are unremarkable except as noted in HPI & below Physical Exam Constitutional: WD/WN, vitals as above ENMT: external ear and nose normal, oropharynx normal Neck: normal visual inspection and trachea midline Respiratory: normal respiratory effort, lungs clear to auscultation Auscultation: no crackles, no rales, no rhonchi, no wheezes and no pleural rub Cardiovascular: RRR, no murmur, no edema Heart Sounds: normal S1 and normal S2 Gastrointestinal (Abdomen): normal bowel sounds, soft, nontender, no hepatosplenomegaly Skin: no rashes, warm and dry Psychiatric: Orientation: alert and oriented x 3 Genitourinary: marquis catheter in place, blood-tinged urine. Results & Data ([facility]) Vital Signs (Past 12 Hours) Vital Signs Temp Pulse Resp BP Pulse Ox 10/20/19 05:00 82 26 H 90 10/20/19 04:28 90 25 H 140/93 92 10/20/19 04:00 36.8 C 88 27 H 91 10/20/19 03:28 87 25 H 141/95 H 92 10/20/19 03:00 90 25 H 92 10/20/19 02:28 90 24 143/95 H 93 10/20/19 02:27 92 H 25 H 146/92 H 94 10/20/19 02:00 86 22 93 10/20/19 01:28 90 24 146/92 H 93 10/20/19 01:05 98 H 10/20/19 01:00 85 25 H 93 10/20/19 00:28 88 30 H 123/88 91 10/20/19 00:00 36.8 C 92 H 29 H 92 10/19/19 23:28 93 H 26 H 135/96 92 10/19/19 23:00 92 H 26 H 95 10/19/19 22:28 90 25 H 130/89 94 10/19/19 22:00 94 H 17 94 10/19/19 21:28 93 H 30 H 145/91 H 94 10/19/19 21:00 85 23 95 10/19/19 20:28 86 22 130/85 94 10/19/19 20:00 36.9 C 86 25 H 92 10/19/19 19:30 91 H 24 92 10/19/19 19:28 89 27 H 134/92 10/19/19 19:04 91 H 22 136/91 95 10/19/19 19:00 93 H 25 H 97 Critical Care Time Critical Care Time: Yes Total Critical Care Time: 45 I have personally spent 45 minutes of critical care time in the direct management of this patient. This is a life/limb threatening event. This includes time spent evaluating patient, direct bedside care, chart review, placing orders, interpretation of diagnostic studies, discussion with consultants, patient, and/or family members regarding treatment decisions, as well as other required patient management activities. This time is exclusive of all separately billable procedures, and teaching time and separate from and in addition to any other critical care service time. Resident Activity Tracking Resident Involvement: Resident Care Provided Care Provided: Adult [facility] Medicine
[2019-10-20] MEDS: POTASSIUM CHLORIDE / WTR 10 MEQ/100 ML PLCT IV SCH ×3 (06:19→08:26)
--- NOTE | 2019-10-20 07:25 | XRay Report ---
XR chest 1V portable CLINICAL HISTORY: fluid overload COMPARISON STUDY: 10/19/2019 FINDINGS: The endotracheal tube has been removed. There are progressive mixed bilateral interstitial and alveolar opacities, likely representing worsening pulmonary edema although an infectious/inflamma tory processes could appear similar. There is mild mediastinal soft tissue prominence, likely seconda ry to the AP technique.[ IMPRESSION: 1. Interval removal of the endotracheal tube 2. Progressive mixed bilateral interstitial and alveolar opacities ACT 112: Negative or not required by law. Electronically signed by: Jam Araujo M.D. 10/20/2019 7:24 AM
--- NOTE | 2019-10-20 07:50 | Urology Progress Note ---
Date of Service October 20, 2019 Assessment & Plan (1) Hydronephrosis with urinary obstruction due to ureteral calculus: 49yo M POD #1 s/p emergent right ureteral stent placement; admitted with altered mental status, acute respiratory failure, elevated troponin, sepsis, and 5 mm obstructing right proximal ureteral stone. Kidney aspirate prelim growing gram neg bacilli Continue broad spectrum abx, will require at least 2 weeks of antibiotics from standpoint. When clinically stabilized we will arrange outpatient evaluation for definitive stone management, however this is secondary to her more urgent health concerns. Maintain marquis catheter for accurate I&Os and to allow max drainage. Likely okay to d/c prior to discharge once clinically improved. Thank you for allowing us to participate in the acute care of Ms. Rodriguez. Please reconsult us with additional questions, concerns or changes in patient status. Subjective Extubated and on NC O2 at this time. Remains lethargic, HPI limited due to this. Pt does acknowledge that she has a stent in place, denies flank pain or major irritation. Marquis catheter intact, draining clear with mild hematuria at times, no clots. Platelets remain low Cr peaked at 3.3, slowly trending down Review of Systems Review of Systems: Unobtainable due to reduced consciousness Physical Exam Constitutional: + ill appearing, comfortable and + lethargic; no acute distress and no altered mental status Eyes: no nystagmus ENMT: Ears: no hearing impairment Neck: trachea midline Respiratory: no respiratory distress, does not use accessory muscles, no cough and no grunting Cardiovascular: Vessels: no JVD Extremities: no edema on manager monitoring Chest (Breasts): Chest: normal inspection of chest Gastrointestinal (Abdomen): Inspection/Auscultation: abdomen not distended and no abdominal edema Percussion/Palpation: abdomen soft; abdomen nontender Musculoskeletal: no cyanosis or clubbing, extremities motor strength 5/5 Head/Neck/Chest: normocephalic and head atraumatic Extremities: extremities normal to inspection Skin: no rashes, warm and dry Neurologic: awake; not confused and not obtunded Psychiatric: Orientation: alert and oriented x 3 Eye Contact: good eye contact Affect: no depressed affect Genitourinary: marquis draining clear with some hematuria, no clots. draining adequate amounts Lymphatic: no lymphadenopathy and no lymphedema Results & Data Vital Signs (Past 12 Hours) Vital Signs Temp Pulse Resp BP Pulse Ox 10/20/19 05:00 82 26 H 90 10/20/19 04:28 90 25 H 140/93 92 10/20/19 04:00 36.8 C 88 27 H 91 10/20/19 03:28 87 25 H 141/95 H 92 10/20/19 03:00 90 25 H 92 10/20/19 02:28 90 24 143/95 H 93 10/20/19 02:27 92 H 25 H 146/92 H 94 10/20/19 02:00 86 22 93 10/20/19 01:28 90 24 146/92 H 93 10/20/19 01:05 98 H 10/20/19 01:00 85 25 H 93 10/20/19 00:28 88 30 H 123/88 91 10/20/19 00:00 36.8 C 92 H 29 H 92 10/19/19 23:28 93 H 26 H 135/96 92 10/19/19 23:00 92 H 26 H 95 10/19/19 22:28 90 25 H 130/89 94 10/19/19 22:00 94 H 17 94 10/19/19 21:28 93 H 30 H 145/91 H 94 10/19/19 21:00 85 23 95 10/19/19 20:28 86 22 130/85 94 10/19/19 20:00 36.9 C 86 25 H 92 PG Care Time/CCT Total # of Minutes Spent Total Time Spent with Patient: Total time spent is greater than 50% in coordination of care (as documented) at patient's floor/unit and/or counseling patient: Coding Level of Care Code 85764 Subseq Hosp Care Lvl 2 Diagnoses Hydronephrosis with urinary obstruction due to ureteral calculus N13.2
--- NOTE | 2019-10-20 09:06 | Billing Data ---
Date of Service October 19, 2019 Coding Level of Care Code Critical Care 1st - mins
--- NOTE | 2019-10-20 09:08 | Billing Data ---
Date of Service October 20, 2019 Coding Level of Care Code 58498 Subseq Hosp Care Lvl 3
[2019-10-20] MEDS: FAMOTIDINE 20 MG in SYRINGE 3 ML IV SCH (11:28)
--- NOTE | 2019-10-20 12:11 | Nephrology Consultation ---
Date of Consultation October 20, 2019 Assessment & Plan (1) Acute kidney injury: Clinically consistent with ATN in the setting of gram negative sepsis, unilateral obstruction, recent NSAID use. Non-oliguric. Creatinine stable. Electrolytes acceptable. BP and volume status reasonably controlled. No indication for dialysis at this time. Medications are appropriately dosed for kidney function. Stan has been DC'd. Jorge remains on renally dosed Zosyn. Urology is following. I would avoid a continued positive fluid balance at this time but do not feel aggressive diuresis is needed. Diuretics may be provided to encourage an even to slightly negative fluid balance. Presentation would be atypical for acute TTP/HUS. Peripheral smear and other laboratory findings did not substantiate MAHA. Document I/O's. Repeat metabolic profile tomorrow AM. (2) NSTEMI, initial episode of care: Cardiology consultation reviewed. No plan for coronary angiography at this time. Clinically improved. (3) Sepsis due to gram-negative UTI: Remains on Zosyn. Repeat cultures pending. (4) Hydronephrosis with urinary obstruction due to ureteral calculus: CT reviewed. POD #2 s/p stent placement. (5) Anemia: With acute thrombocytopenia. Unclear etiology. Findings of anaplasmosis (including inclusion bodies) noted noted. Peripheral smear did not demonstrate schistocytes or evidence of MAHA in terms of LDH or bilirubin. Attributed to acute infection for now with close prospective monitoring. HIT ab testing negative. (6) Admitted to intensive care unit: 30 minutes of critical care time provided today. (7) Cardiomyopathy: TTE reviewed. History of Present Illness Reason for Consultation: ZION Requesting Physician: Augustin Cuba Attending Physician: Augustin Cuba History of Present Illness Anisa Rodriguez is a 49-year-old female seen in consultation this morning regarding acute kidney injury. Anisa stated that she has never been previously evaluated by a hood fitter. There is no known history of CKD. Serum creatinine was 1.8 mg/dL when she presented to [facility] on October 15. Anisa presented to [facility] ER with flank pain. Initial treatment included Toradol and IVF. Unfortunately, follow up evaluation on October 18, in the setting of persistent flank pain, demonstrated an obstructing proximal right ureter stone with hydronephrosis. Anisa developed sepsis from UTI with gram negative kem teremia. She was transferred to the ICU at [facility]. Laboratory studies were also notable for an elevated troponin at this time. There were no acute ST-T changes on EKG. Heparin gtt was started in treatment of NSTEMI. TTE has demonstrated global LV hypokinesis with a LVEF of 25%. Anisa does not have a prior history of cardiovascular disease. She underwent ureteroscopy with stent placement and retrograde pyelogram on 10.18 at [facility]. She tolerated the procedure well. Aspirate from the kidney is also growing gram negative rods. She was extubated on POD#1. Anisa was feeling reasonably well this morning. She has remained on antibiotic therapy with vancomycin and Zosyn. Vanco level was 18 yesterday. The medication has not been redosed. She remains on Zosyn. Laboratory studies demonstrating creatinine rising to 3.3 mg/dL. Notable additionally are progressive anemia and thrombocytopenia. Platelet count dropped from 240 on 10/16 to 80 on 10/17. Creatinine lisa from 1.8 on 10/16 to 3.6 on 10/17. HIT antibody testing was negative. Fibrinogen has not been low. FSP elevated. No evidence of intravascular hemolysis or MAHA on labs or peripheral smear. Allergies Allergy/AdvReac Type Severity Reaction Status Date / Time Penicillins Allergy Unknown Unknown Verified 10/18/19 08:39 Patient History Medical History (Updated 10/20/19 @ 12:49 by Obed Garner DO) Anxiety Surgical History (Updated 10/20/19 @ 12:49 by Obed Garner DO) S/P ureteral stent placement Social History Preferred Language: Danish Communication Ability: Unable Music Manager Required: No Beliefs That Will Affect Care: None Current Living Situation: Other Current Living Situation Comment: Friend Other Information That Helps Us Care for You: No Feels Safe at Home: Yes Safety Concerns: Feels Safe At This Time Smoking Status: Current every day smoker Tobacco Type: cigarettes ; Cigarettes Per Day: 10 ; Do You Dip or Chew Tobacco: No ; Second Hand Exposure: No ; Tobacco Cessation Education Requested by Patient: No Hx Alcohol Use: No Hx Substance Use: No Review of Systems Review of Systems: All systems reviewed & are unremarkable except as noted in HPI & below Physical Exam Constitutional: well developed; no acute distress Eyes: no scleral abnormality and no corneal abnormality ENMT: Mouth: no oral mucosal abnormality and oral mucous membranes not dry Neck: normal visual inspection and trachea midline Respiratory: normal respiratory effort Auscultation: lungs clear to auscultation bilaterally Cardiovascular: Rate/Rhythm: regular rate Heart Sounds: normal S1 and normal S2 Extremities: no edema Musculoskeletal: Extremities: no cyanosis and no clubbing Skin: normal turgor; no lesions Neurologic: Motor/Sensory: no tremor and no asterixis Psychiatric: Orientation: alert and oriented x 3 Results & Data Vital Signs (Past 12 Hours) Vital Signs Temp Pulse Resp BP Pulse Ox 10/20/19 11:15 37.0 C 92 H 25 H 145/102 H 92 10/20/19 11:00 94 H 30 H 92 10/20/19 10:30 91 H 32 H 92 10/20/19 10:15 95 H 45 H 149/103 H 89 L 10/20/19 10:00 89 33 H 90 10/20/19 09:30 92 H 39 H 89 L 10/20/19 09:15 97 H 30 H 153/117 H 89 L 10/20/19 09:00 93 H 22 86 L 10/20/19 08:30 90 31 H 90 10/20/19 08:00 90 35 H 90 10/20/19 07:30 90 92 10/20/19 07:28 36.8 C 85 22 143/100 H 91 10/20/19 07:00 87 89 L 10/20/19 06:45 86 31 H 90 10/20/19 05:00 82 26 H 90 10/20/19 04:28 90 25 H 140/93 92 10/20/19 04:00 36.8 C 88 27 H 91 10/20/19 03:28 87 25 H 141/95 H 92 10/20/19 03:00 90 25 H 92 10/20/19 02:28 90 24 143/95 H 93 10/20/19 02:27 92 H 25 H 146/92 H 94 10/20/19 02:00 86 22 93 10/20/19 01:28 90 24 146/92 H 93 10/20/19 01:05 98 H 10/20/19 01:00 85 25 H 93 10/20/19 00:28 88 30 H 123/88 91 Laboratory Results Laboratory Results - last 24 hr 10/19/19 10/19/19 10/19/19 16:24 16:24 23:57 WBC 8.75 RBC 3.12 L Hgb 9.1 L Hct 25.8 L MCV 82.7 MCH 29.2 MCHC 35.3 RDW Std Deviation 44.5 RDW Coeff of Nadeen 14.7 H Plt Count 19 L* MPV 10.7 H Immature Gran % (Auto) 0.5 Neut % (Auto) 89.0 Lymph % (Auto) 5.1 Alexander % (Auto) 4.6 Eos % (Auto) 0.7 Baso % (Auto) 0.1 Immature Gran # (Auto) 0.04 H Neut # (Auto) 7.79 H Lymph # (Auto) 0.45 L Alexander # (Auto) 0.40 Eos # (Auto) 0.06 Baso # (Auto) 0.01 Dohle Bodies 2+ Platelet Estimate SIGNIFIC DECREASED PT INR APTT PTT Ratio ABG pH ABG pCO2 ABG pO2 ABG HCO3 ABG O2 Saturation ABG Base Excess Singh Test VBG pH VBG pCO2 VBG pO2 VBG HCO3 VBG O2 Saturation VBG Base Excess Barometric Pressure Oxygen Given Sodium 141 141 Potassium 3.3 L D 3.5 Chloride 109 H 108 H Carbon Dioxide 20 L 23 Anion Gap 12.0 H 10.0 BUN 75 H 79 H Creatinine 3.34 H D 3.29 H Est Cr Clr Drug Dosing 23.1 23.5 Est GFR ( Amer) 17.6 17.9 Est GFR (Non-Af Amer) 15.2 15.4 BUN/Creatinine Ratio 22.4 H 23.9 H Glucose 99 115 H Calcium 7.4 L D 8.0 L Phosphorus Magnesium Total Bilirubin Direct Bilirubin AST ALT Alkaline Phosphatase Total Protein Albumin Lipase TSH 10/19/19 10/19/19 10/20/19 23:57 23:57 04:11 WBC 7.35 RBC 3.18 L Hgb 8.8 L Hct 26.0 L MCV 81.8 MCH 27.7 MCHC 33.8 RDW Std Deviation 44.1 RDW Coeff of Nadeen 14.6 H Plt Count 12 L* MPV 10.3 Immature Gran % (Auto) Neut % (Auto) Lymph % (Auto) Alexander % (Auto) Eos % (Auto) Baso % (Auto) Immature Gran # (Auto) Neut # (Auto) Lymph # (Auto) Alexander # (Auto) Eos # (Auto) Baso # (Auto) Dohle Bodies Platelet Estimate SIGNIFIC DECREASED PT INR APTT PTT Ratio ABG pH ABG pCO2 ABG pO2 ABG HCO3 ABG O2 Saturation ABG Base Excess Singh Test VBG pH 7.50 H VBG pCO2 30 L VBG pO2 46 VBG HCO3 23 VBG O2 Saturation 83.0 VBG Base Excess -0.1 Barometric Pressure 728.0 Oxygen Given Sodium 141 Potassium 3.3 L Chloride 108 H Carbon Dioxide 26 Anion Gap 7.0 BUN 75 H Creatinine 3.18 H Est Cr Clr Drug Dosing 24.3 Est GFR ( Amer) 18.7 Est GFR (Non-Af Amer) 16.1 BUN/Creatinine Ratio 23.4 H Glucose 104 H Calcium 7.6 L Phosphorus 3.5 D Magnesium 2.8 H Total Bilirubin 1.2 H Direct Bilirubin 0.7 H D AST 28 ALT 27 Alkaline Phosphatase 143 H Total Protein 5.5 L Albumin 1.7 L Lipase 90 TSH 2.580 10/20/19 10/20/19 10/20/19 04:11 04:11 04:11 WBC 7.27 RBC 2.99 L Hgb 8.5 L Hct 24.5 L MCV 81.9 MCH 28.4 MCHC 34.7 RDW Std Deviation 44.0 RDW Coeff of Nadeen 14.6 H Plt Count 14 L* MPV Immature Gran % (Auto) 0.6 Neut % (Auto) 83.8 Lymph % (Auto) 8.4 Alexander % (Auto) 6.5 Eos % (Auto) 0.6 Baso % (Auto) 0.1 Immature Gran # (Auto) 0.04 H Neut # (Auto) 6.10 Lymph # (Auto) 0.61 L Alexander # (Auto) 0.47 Eos # (Auto) 0.04 Baso # (Auto) 0.01 Dohle Bodies 1+ Platelet Estimate SIGNIFIC DECREASED PT 10.9 INR 1.1 APTT 32.5 H PTT Ratio 1.2 ABG pH 7.52 H* ABG pCO2 28 L ABG pO2 58 L ABG HCO3 23 ABG O2 Saturation 90.6 ABG Base Excess 0.2 Singh Test Pos VBG pH VBG pCO2 VBG pO2 VBG HCO3 VBG O2 Saturation VBG Base Excess Barometric Pressure 727.3 Oxygen Given 2 Sodium Potassium Chloride Carbon Dioxide Anion Gap BUN Creatinine Est Cr Clr Drug Dosing Est GFR ( Amer) Est GFR (Non-Af Amer) BUN/Creatinine Ratio Glucose Calcium Phosphorus Magnesium Total Bilirubin Direct Bilirubin AST ALT Alkaline Phosphatase Total Protein Albumin Lipase TSH PG Care Time/CCT Total # of Minutes Spent Total Time Spent with Patient: Total time spent is greater than 50% in coordination of care (as documented) at patient's floor/unit and/or counseling patient: Coding Level of Care Code 05729 Inpt Consult Level 4 Diagnoses Acute kidney injury N17.9 NSTEMI, initial episode of care I21.4 Sepsis due to gram-negative UTI A41.50; N39.0 Hydronephrosis with urinary obstruction due to ureteral calculus N13.2 Anemia D64.9 Admitted to intensive care unit Z78.9 Cardiomyopathy I42.9
--- NOTE | 2019-10-20 14:57 | XCELERA ---
[id number] \\[email or web address]\[id number]
--- NOTE | 2019-10-20 15:16 | Cardiology Progress Note ---
Date of Service October 20, 2019 Assessment & Plan (1) Cardiomyopathy: She has a cardiomyopathy based on echocardiography on October 18, 2019 which to my knowledge she does not have historically. I suspect it is due to her presentation with sepsis and may recover quickly, however could be longer standing and it is possible she has a longstanding nonischemic cardiomyopathy. It is improved today but not normal, which would be consistent with this. The elevated troponin suggest a more acute process and she does not have evidence of an acute coronary event. If she does not normalize we can evaluate for other causes of cardiomyopathy. (2) Elevated troponin: She has a moderately elevated troponin (2.2) on admission which increased to 6.8 on the second and third reading, it was down to 3.7 yesterday morning. Perhaps a stress test would be in order in the distant future after full recovery. (3) CHF (congestive heart failure): She had evidence of heart failure on chest x-ray on admission and had left ventricular dysfunction and a markedly elevated BNP. Her heart failure is probably on the basis of LV dysfunction as noted above. She is spontaneously diuresing now. Admission and Anticipated Discharge Date Admission Date: October 18, 2019 Subjective Doing better, she is extubated and although not conversational is awake and denies cardiac complaints. Physical Exam Physical Exam: Constitutional: She is extubated, she does not appear to be in distress but is conversational buit awake and alert. HEENT: Unremarkable Neck: No jugular venous distention, carotid pulses are normal and equal bilaterally without bruits. Pulmonary: Crackles (examined supine) to auscultation bilaterally. Cardiac: Regular rhythm with no murmur, gallop or rub. Abdomen: Soft, nontender with normal bowel sounds. Extremities: No edema. Distal pulses intact. Neurologic: Very limited is unremarkable. Skin: No rash, ecchymoses or petechiae. Results & Data ([facility]) Vital Signs (Past 12 Hours) Vital Signs Temp Pulse Resp BP Pulse Ox 10/20/19 14:15 36.9 C 96 H 41 H 143/105 H 92 10/20/19 14:10 93 H 32 H 10/20/19 14:00 98 H 42 H 10/20/19 13:50 97 H 38 H 10/20/19 13:40 95 H 33 H 10/20/19 13:30 93 H 35 H 10/20/19 13:20 94 H 39 H 92 10/20/19 13:15 93 H 32 H 148/108 H 94 10/20/19 13:10 92 H 37 H 93 10/20/19 13:00 90 38 H 93 10/20/19 12:50 94 H 39 H 94 10/20/19 12:40 95 H 39 H 92 10/20/19 12:30 91 H 29 H 93 10/20/19 12:20 93 H 44 H 92 10/20/19 12:15 95 H 31 H 157/113 H 93 10/20/19 12:10 96 H 43 H 91 10/20/19 12:00 91 H 38 H 91 10/20/19 11:50 91 H 39 H 92 10/20/19 11:40 89 37 H 92 10/20/19 11:30 94 H 26 H 95 10/20/19 11:20 92 H 26 H 92 10/20/19 11:16 92 H 31 H 93 10/20/19 11:15 37.0 C 92 H 25 H 145/102 H 92 10/20/19 11:00 94 H 30 H 92 10/20/19 10:30 91 H 32 H 92 10/20/19 10:15 95 H 45 H 149/103 H 89 L 10/20/19 10:00 89 33 H 90 10/20/19 09:30 92 H 39 H 89 L 10/20/19 09:15 97 H 30 H 153/117 H 89 L 10/20/19 09:00 93 H 22 86 L 10/20/19 08:30 90 31 H 90 10/20/19 08:00 90 35 H 90 10/20/19 07:30 90 92 10/20/19 07:28 36.8 C 85 22 143/100 H 91 10/20/19 07:00 87 89 L 10/20/19 06:45 86 31 H 90 10/20/19 05:00 82 26 H 90 10/20/19 04:28 90 25 H 140/93 92 10/20/19 04:00 36.8 C 88 27 H 91 10/20/19 03:28 87 25 H 141/95 H 92 Laboratory Results Cardiac Enzymes 10/20/19 Range/Units 04:11 AST 28 (15-37) U/L Coagulation 10/20/19 Range/Units 04:11 PT 10.9 (9.0-12.0) Seconds APTT 32.5 H (21.0-31.0) Seconds CBC 10/19/19 10/19/19 10/20/19 Range/Units 16:24 23:57 04:11 WBC 8.75 7.35 7.27 (4.8-10.8) K/uL RBC 3.12 L 3.18 L 2.99 L (4.2-5.4) M/uL Hgb 9.1 L 8.8 L 8.5 L (12.0-16.0) g/dL Hct 25.8 L 26.0 L 24.5 L (37-47) % Plt Count 19 L* 12 L* 14 L* (130-400) K/uL Neut # (Auto) 7.79 H 6.10 (1.4-6.5) K/uL Lymph # (Auto) 0.45 L 0.61 L (1.2-3.4) K/uL [place] # (Auto) 0.40 0.47 (0.11-0.59) K/uL Eos # (Auto) 0.06 0.04 (0-0.5) K/uL Baso # (Auto) 0.01 0.01 (0-0.2) K/uL Comprehensive Metabolic Panel 10/19/19 10/19/19 10/20/19 Range/Units 16:24 23:57 04:11 Sodium 141 141 141 (136-145) mmol/L Potassium 3.3 L D 3.5 3.3 L (3.5-5.1) mmol/L Chloride 109 H 108 H 108 H (98-107) mmol/L Carbon Dioxide 20 L 23 26 (21-32) mmol/L BUN 75 H 79 H 75 H (7-18) mg/dl Creatinine 3.34 H D 3.29 H 3.18 H (0.6-1.2) mg/dl Glucose 99 115 H 104 H (70-99) mg/dl Calcium 7.4 L D 8.0 L 7.6 L (8.5-10.1) mg/dl Direct Bilirubin 0.7 H D (0-0.2) mg/dl AST 28 (15-37) U/L ALT 27 (12-78) U/L Alkaline Phosphatase 143 H (45-117) U/L Total Protein 5.5 L (6.4-8.2) gm/dl Albumin 1.7 L (3.4-5.0) gm/dl Intake and Output 10/20/19 10/20/19 10/20/19 06:59 14:59 22:59 Intake Total 1546.667 / 3474.000 455 / 455 Output Total 576 / 1537 580 / 580 Balance 970.667 / 1937.000 -125 / -125 Intake: IV 1546.667 / 2857.000 405 / 405 OFIRMEV 1,000 mg In 100 ml @ 100 / 100 400 mls/hr IV NOW STA Rx#: [id number] Zosyn 4.5 gm In D5 100 ml @ 30 120 / 240 120 / 120 mls/hr IV Q8H [place] Rx#:[id number] K RIDER / WTR 10 meq In 100 ml 285 / 285 @ 100 mls/hr IV Q1H [place] Rx#: [id number] Sodium Bicarbonate 8.4% 150 Meq 1326.667 / 1326.667 KCl 20 Meq In Sterile Water 1, 000 ml @ 80 mls/hr IV .[id number] [place] Rx#:[id number] Oral 50 / 50 Output: Urine 225 / 225 Urine Amount (Catheter) 575 / 1535 355 / 355 Jimenez/Indwelling 575 / 1535 355 / 355 # Bowel Movements 1 / 2 Other: Weight 91 kg Diagnostic Findings Limited echo today for LVEF (reviewed before formal report): Improved, still reduced PG Care Time/CCT Total # of Minutes Spent Total Time Spent with Patient: Total time spent is greater than 50% in coordination of care (as documented) at patient's floor/unit and/or counseling patient: Coding Level of Care Code 96583 Subseq Hosp Care Lvl 2 Diagnoses Cardiomyopathy I42.9 Elevated troponin R79.89 CHF (congestive heart failure) I50.9
--- NOTE | 2019-10-20 18:33 | Electrocardiogram Report ---
Test Reason : Blood Pressure : / mmHG Vent. Rate : 093 BPM Atrial Rate : 093 BPM P-R Int : 168 ms QRS Dur : 090 ms QT Int : 380 ms P-R-T Axes : 000 139 165 degrees QTc Int : 472 ms Suspect arm lead reversal, interpretation assumes no reversal Normal sinus rhythm Left posterior fascicular block Inferior infarct , age undetermined Abnormal ECG When compared with ECG of 19-OCT-2019 07:20, Left posterior fascicular block is now Present Confirmed by Warren Lord ([id number] on 10/20/2019 6:33:15 PM Referred By: Shaamr Vazquez Confirmed By:Luisito Lord
[2019-10-20] MEDS ORDERED: POTASSIUM CHLORIDE 20 MEQ TABCR PO STA (19:06)
[2019-10-20] MEDS ORDERED: FUROSEMIDE 20 MG in SYRINGE 0 ML IV ONE (19:06)
[2019-10-20] MEDS ORDERED: LORazepam 0.5 MG/1 ML VIAL IV STA (21:32)
[2019-10-20 21:42] LABS: iSTAT Allen Test Pass; iSTAT Art Bld Gas pCO2 Correct 29 mmHg (35-46); iSTAT Art Bld Gas pH Corrected 7.512 (7.35-7.45); iSTAT Arterial Blood Gas HCO3 23 meg/L (19-24); iSTAT Arterial Blood Gas pCO2 29 mmHg (35-46); iSTAT Arterial Blood Gas pH 7.51 (7.35-7.45); iSTAT Arterial Blood Gas pO2 77 mmHg (80-95); iSTAT Arterial Blood Gas pO2 C 77; iSTAT Carbon Dioxide 24 mmol/L (24-31); iSTAT FiO2 40 %; iSTAT Hematocrit 26 % (37-47); iSTAT Hemoglobin 8.8 g/dl (12.0-16.0); iSTAT Potassium 3.8 mmol/L (3.3-5.0); iSTAT Site L Radial; iSTAT Sodium 140 mmol/L (135-144)
--- NOTE | 2019-10-20 22:21 | Hospitalist Progress Note ---
Date of Service October 20, 2019 Assessment & Plan (1) Admitted to intensive care unit: Consult to dicer machine operator Dr. Stacy and staff. (2) NSTEMI, initial episode of care: The patient will have ordered serial cardiac enzymes, serial EKG's, cardiac rhythm monitoring and a 2-D echocardiogram with Dopplers. Initial troponin at [facility] was 1.5. Trop peaked at 6.8 Consulted cardiology. Appreciate input (3) Acute respiratory failure with hypoxia: Patient is currently extubated. however she is now tachypnic at 40. May either need to be reintubated, or placed on BIPAP. Will keep patient in ICU overnight. (4) Sepsis due to gram-negative UTI: Sepsis due to gram-negative UTI/hydronephrosis with urinary obstruction due to ureteral calculus- Continue empiric treatment vancomycin IV and Zosyn IV. awaiting cultures from [facility].. (5) Hydronephrosis with urinary obstruction due to ureteral calculus: See above (6) Altered mental status: Patient upon first presentation to [facility] on 01/12 had normal mentation. Upon presentation to [facility] ED on the evening of 01/13 she was noted to be confused. Upon arrival to [facility] ICU patient does answer questions appropriately. (7) Anemia: hemoglobin stable at 8.5 will monitor. (8) Metabolic acidosis: Improved with bicarb drip. Admission and Anticipated Discharge Date Admission Date: October 18, 2019 Subjective Patient does not provide significant history. She is breathing rapidly. Review of Systems Review of Systems: All systems reviewed & are unremarkable except as noted in HPI & below Physical Exam Physical Exam: The patient is lying in bed and mild acute distress. Patient is tachypnic. HEENT--PERRL, EOMI, mucous membranes and oropharynx dry. Neck--supple. No JVD. No bruits. Thyroid normal, trachea midline, no adenopathy. Heart--normal S1 and S2. No murmurs, rubs or gallops. Lungs--tachypnic, using accessory muscles to breath, bilateral rhonchi Abdomen--normal bowel sounds and soft. Nontender. Mildly tympanitic. Extremities--no cyanosis or clubbing. Trace bilateral pretibial pitting edema. Dermatologic--normal skin turgor, normal color, no abnormal lymph nodes, no rash. Neuro: follows commands Results & Data ([facility]) Vital Signs (Past 12 Hours) Vital Signs Temp Pulse Resp BP Pulse Ox 10/20/19 22:00 37 C 94 H 42 H 93 10/20/19 21:30 97 H 36 H 92 10/20/19 21:16 94 H 49 H 139/108 H 97 10/20/19 21:00 94 H 42 H 97 10/20/19 20:30 92 H 45 H 91 10/20/19 20:15 99 H 44 H 159/105 H 92 10/20/19 20:00 36.8 C 93 H 44 H 92 10/20/19 19:30 95 H 45 H 90 10/20/19 19:15 94 H 45 H 149/107 H 93 10/20/19 19:00 95 H 46 H 91 10/20/19 18:30 95 H 42 H 91 10/20/19 18:15 99 H 41 H 153/108 H 91 10/20/19 18:00 95 H 42 H 90 10/20/19 17:30 37.0 C 96 H 45 H 91 10/20/19 17:15 95 H 41 H 147/105 H 92 10/20/19 17:00 97 H 44 H 90 10/20/19 16:30 92 H 42 H 92 10/20/19 16:15 96 H 36 H 145/108 H 93 10/20/19 16:00 96 H 44 H 92 10/20/19 15:30 95 H 45 H 91 10/20/19 15:15 94 H 37 H 144/109 H 92 10/20/19 15:00 95 H 43 H 92 10/20/19 14:30 98 H 40 H 94 10/20/19 14:16 92 H 43 H 93 10/20/19 14:15 36.9 C 96 H 41 H 143/105 H 92 10/20/19 14:10 93 H 32 H 92 10/20/19 14:00 98 H 42 H 93 10/20/19 13:50 97 H 38 H 93 10/20/19 13:40 95 H 33 H 93 10/20/19 13:30 93 H 35 H 92 10/20/19 13:20 94 H 39 H 92 10/20/19 13:15 93 H 32 H 148/108 H 94 10/20/19 13:10 92 H 37 H 93 10/20/19 13:00 90 38 H 93 10/20/19 12:50 94 H 39 H 94 10/20/19 12:40 95 H 39 H 92 10/20/19 12:30 91 H 29 H 93 10/20/19 12:20 93 H 44 H 92 10/20/19 12:15 95 H 31 H 157/113 H 93 10/20/19 12:10 96 H 43 H 91 10/20/19 12:00 91 H 38 H 91 10/20/19 11:50 91 H 39 H 92 10/20/19 11:40 89 37 H 92 10/20/19 11:30 94 H 26 H 95 10/20/19 11:20 92 H 26 H 92 10/20/19 11:16 92 H 31 H 93 10/20/19 11:15 37.0 C 92 H 25 H 145/102 H 92 10/20/19 11:00 94 H 30 H 92 10/20/19 10:30 91 H 32 H 92 PG Care Time/CCT Total # of Minutes Spent Total Time Spent with Patient: Total time spent is greater than 50% in coordination of care (as documented) at patient's floor/unit and/or counseling patient: Coding Level of Care Code 00345 Subseq Hosp Care Lvl 3 Diagnoses Admitted to intensive care unit Z78.9 NSTEMI, initial episode of care I21.4 Acute respiratory failure with hypoxia J96.01 Sepsis due to gram-negative UTI A41.50; N39.0 Hydronephrosis with urinary obstruction due to ureteral calculus N13.2 Altered mental status R41.82 Anemia D64.9 Metabolic acidosis E87.2 Time Spent (min) 35
[2019-10-21 00:52] LABS: BUN Creatinine Ratio 26.6 (10-20); Est GFR (African American) 23.6; Est GFR (Non-African American) 20.3; Potassium 4.2 mmol/L (3.5-5.1)
[2019-10-21 00:53] LABS: Base Excess VBG 0.9 mEq/L; HCO3 VBG 24 mmol/L; Oxygen Saturation VBG 94.8 %; PCO2 VBG 31 mmHg (38-50); PO2 VBG 73 mmHg
[2019-10-21 05:24] LABS: INR 1.1 (0.9-1.1); Partial Thromboplastin Ratio 0.9; Prothrombin Time 11.1 Seconds (9.0-12.0)
[2019-10-21 05:30] LABS: Alanine Aminotransferase 38 U/L (12-78); Albumin Level 1.8 gm/dl (3.4-5.0); Aspartate Aminotransferase 32 U/L (15-37); BUN Creatinine Ratio 27.2 (10-20); Bilirubin Direct 0.9 mg/dl (0-0.2); Blood Urea Nitrogen 71 mg/dl (7-18); Calcium 8.4 mg/dl (8.5-10.1); Carbon Dioxide 25 mmol/L (21-32); Chloride 110 mmol/L (98-107); Creatinine Clr Calc Pharmacy 30.2 ml/min; Est GFR (African American) 23.8; Est GFR (Non-African American) 20.5; Glucose 105 mg/dl (70-99); Lipase 349 U/L (73-393); Magnesium 2.7 mg/dl (1.8-2.4); Potassium 4.1 mmol/L (3.5-5.1); Sodium 143 mmol/L (136-145)
[2019-10-21 05:33] LABS: Alkaline Phosphatase 176 U/L (45-117); Bilirubin,Total 1.7 mg/dl (0.2-1); NT Pro B Type Natriuretic Pept > 35000 pg/ml (0-900); Phosphorus 3.6 mg/dl (2.5-4.9); Total Protein 6.1 gm/dl (6.4-8.2)
[2019-10-21] MEDS ORDERED: FUROSEMIDE 20 MG in SYRINGE 0 ML IV ONE (06:15)
[2019-10-21 06:25] LABS: Hematocrit (blood only) 30.1 % (37-47); Hemoglobin 10.2 g/dL (12.0-16.0); Mean Corpuscular Hgb Conc 33.9 g/dL (32-36); Mean Corpuscular Volume 82.7 fL (80-100); Platelet Count 12 K/uL (130-400); RDW Coefficient of Variation 14.6 % (11.5-14.5); RDW Standard Deviation 44.5 fL (36.4-46.3); Red Blood Count 3.64 M/uL (4.2-5.4); White Blood Count 10.31 K/uL (4.8-10.8)
[2019-10-21] MEDS: PIPERACILLIN/TAZOBACTAM 4.5 GM in DEXTROSE 5% 100 ML IV SCH ×2 (06:25→15:13)
[2019-10-21 06:26] LABS: Basophils # (auto) 0.02 K/uL (0-0.2); Basophils % (auto) 0.2 %; Dohle Bodies 1+; Eosinophils # (auto) 0.05 K/uL (0-0.5); Eosinophils % (auto) 0.5 %; Immature Granulocytes # (auto) 0.07 K/uL (0.00-0.02); Immature Granulocytes % (auto) 0.7 %; Lymphocytes # (auto) 0.86 K/uL (1.2-3.4); Lymphocytes % (auto) 8.3 %; Monocytes # (auto) 1.05 K/uL (0.11-0.59); Monocytes % (auto) 10.2 %; Neutrophils # (auto) 8.26 K/uL (1.4-6.5); Neutrophils % (auto) 80.1 %; Platelet Estimate SIGNIFIC DECREASED (Normal); Toxic Granulation Occasional; Toxic Vacuolation Occasional
[2019-10-21] MEDS ORDERED: HEPARIN IV BOLUS 2,000 UNITS in SYRINGE 0 ML IV ONE (07:26)
--- NOTE | 2019-10-21 09:21 | XRay Report ---
SINGLE VIEW CHEST CLINICAL HISTORY: Respiratory failure. FINDINGS: An AP, portable, upright chest radiograph is compared to study dated 10/20/2019. The examina tion is degraded by portable technique and patient rotation. The heart is top normal for projection. There is pulmonary vascular congestion. Diffuse airspace opacities are similar to previous. Small ple ural effusions are noted. No pneumothorax is seen. The skeletal structures are osteopenic. The bony t horax is grossly intact. IMPRESSION: 1. There is pulmonary vascular congestion. 2. Diffuse patchy airspace opacities are similar to previous. This could represent interstitial edema and/or a superimposed infectious/inflammatory pneumonitis. Clinical correlation will be required and there has been no significant change from yesterday. 3. Small pleural effusions. ACT 112: Negative or not required by law. Electronically signed by: Robinson Malave M.D. 10/21/2019 9:20 AM
--- NOTE | 2019-10-21 09:22 | XRay Report ---
SINGLE VIEW CHEST CLINICAL HISTORY: Dyspnea. FINDINGS: An AP, portable, upright chest radiograph is compared to study performed earlier the same d ay 10/20/2019. The examination is degraded by portable technique and patient rotation. The heart is to p normal for projection. There is pulmonary vascular congestion. Diffuse airspace opacities are simil ar to previous. Small pleural effusions are noted. No pneumothorax is seen. The skeletal structures a re osteopenic. The bony thorax is grossly intact. IMPRESSION: 1. There is pulmonary vascular congestion. 2. Diffuse patchy airspace opacities are similar to previous. This could represent interstitial edema and/or a superimposed infectious/inflammatory pneumonitis. Clinical correlation will be required and there has been no significant change from today's earlier examination. 3. Small pleural effusions. ACT 112: Negative or not required by law. Electronically signed by: Robinson Malave M.D. 10/21/2019 9:21 AM
--- NOTE | 2019-10-21 10:11 | Urology Progress Note ---
Date of Service October 21, 2019 Assessment & Plan (1) Sepsis due to gram-negative UTI: Patient previously stented secondary to an obstructing ureteral calculus and uro-sepsis in the midst of numerous other acute conditions Overall, she seems stable from a standpoint I do not anticipate further interventions during this hospitalization barring a significant change in her clinical condition Continue to focus on recovery from her overall acute illness We will arrange for outpatient follow-up to determine appropriate long-term treatment of her stone and management of her stent Please call us if there are further questions during this hospitalization Subjective BiPAP Patient is interactive although with a bipap facemask present, her interaction is limited She denies any subjective pain No pertinent questions Review of Systems Review of Systems: Limited ability to evaluate secondary to limited interaction Physical Exam Physical Exam: BiPAP facemask present Abdomen soft Skin appropriate without rashes or other notable abnormalities Urine relatively clear with a Jimenez catheter in place No significant edema Results & Data Vital Signs (Past 12 Hours) Vital Signs Temp Pulse Pulse Resp BP Pulse Ox 10/21/19 07:37 94 H 32 H 97 10/21/19 07:30 37.6 C H 93 H 35 H 97 10/21/19 07:15 95 H 39 H 143/99 H 98 10/21/19 07:00 94 H 39 H 97 10/21/19 06:30 96 H 40 H 96 10/21/19 06:15 98 H 40 H 148/105 H 96 10/21/19 06:00 37.2 C 98 H 34 H 97 10/21/19 05:30 95 H 36 H 96 10/21/19 05:15 95 H 37 H 146/103 H 97 10/21/19 05:10 93 H 34 H 97 10/21/19 05:00 88 39 H 96 10/21/19 04:30 87 32 H 96 10/21/19 04:15 94 H 31 H 138/96 97 10/21/19 04:00 37.2 C 94 H 38 H 97 10/21/19 03:30 93 H 37 H 96 10/21/19 03:15 91 H 36 H 138/97 97 10/21/19 03:00 94 H 38 H 97 10/21/19 02:30 97 H 39 H 95 10/21/19 02:20 98 H 40 H 96 10/21/19 02:15 97 H 36 H 146/103 H 95 10/21/19 02:00 95 H 39 H 96 10/21/19 01:30 98 H 39 H 95 10/21/19 01:28 99 H 40 H 160/107 H 95 10/21/19 01:00 37.2 C 93 H 36 H 97 10/21/19 00:30 93 H 43 H 96 10/21/19 00:15 98 H 39 H 152/111 H 96 10/21/19 00:00 37 C 95 H 36 H 96 10/20/19 23:30 94 H 44 H 95 10/20/19 23:15 100 H 43 H 153/112 H 96 10/20/19 23:10 95 H 36 H 95 10/20/19 23:00 36.9 C 93 H 40 H 96 10/20/19 22:57 89 38 H 91 10/20/19 22:30 97 H 44 H 92 10/20/19 22:15 98 H 42 H 154/105 H 91 PG Care Time/CCT Total # of Minutes Spent Total Time Spent with Patient: Total time spent is greater than 50% in coordination of care (as documented) at patient's floor/unit and/or counseling patient: Coding Level of Care Code 19717 Subseq Hosp Care Lvl 3 Diagnoses Sepsis due to gram-negative UTI A41.50; N39.0
--- NOTE | 2019-10-21 11:10 | Nephrology Progress Note ---
Date of Service October 21, 2019 Assessment & Plan (1) Acute kidney injury: ZION secondary to ATN in the setting of gram negative sepsis, unilateral obstruction, recent NSAID use. Non-oliguric. Creatinine stable. Electrolytes acceptable. BP and volume status reasonably controlled. Medications are appropriately dosed for kidney function. Stan has been DC'd,remains on renally dosed Zosyn. Urology is following. -- do not feel aggressive diuresis is needed as patient seems to be auto diur esing and has been net negative over last 2 days and slightly positive since admission. OK to use Diuretics as needed if urine output drops, to encourage an even to slightly negative fluid balance. --Presentation would be atypical for acute TTP/HUS, platelet was normal on 10/16/2019 and rapidly dropped since. Peripheral smear and other laboratory findings did not substantiate MAHA. Persistent thrombocytopenia ? Related to Zosyn --Document I/O's. Repeat metabolic profile tomorrow AM. will follow (2) NSTEMI, initial episode of care: Cardiology consultation reviewed. No plan for coronary angiography at this time. Clinically improved. (3) Sepsis due to gram-negative UTI: Remains on Zosyn. Repeat cultures pending. (4) Hydronephrosis with urinary obstruction due to ureteral calculus: CT reviewed. POD #2 s/p stent placement. (5) Anemia: With acute thrombocytopenia. Unclear etiology. Findings of anaplasmosis (including inclusion bodies) noted noted. Peripheral smear did not demonstrate schistocytes or evidence of MAHA in terms of LDH or bilirubin. Attributed to acute infection for now with close prospective monitoring. HIT ab testing negative. (6) Admitted to intensive care unit: 30 minutes of critical care time provided today. (7) Cardiomyopathy: TTE reviewed. Nafisa Lange Was seen and examined in her room this morning. Complains of fatigue and overall not feeling well although denies shortness of breath or any other specific symptom. Has decent urine output and remained significantly net negative over last 2 days. Renal function stable without significant improvement, electrolyte acceptable. Review of Systems Review of Systems: All systems reviewed & are unremarkable except as noted in HPI & below Physical Exam Constitutional: + ill appearing; no acute distress Respiratory: normal respiratory effort, lungs clear to auscultation normal respiratory effort; no respiratory distress Auscultation: + diminished lung sounds Cardiovascular: RRR, no murmur, no edema Neurologic: moves all extremities and awake; not confused Psychiatric: A+Ox3, euthymic affect Results & Data Vital Signs (Past 12 Hours) Vital Signs Temp Pulse Resp BP Pulse Ox 10/21/19 10:54 93 H 38 H 97 10/21/19 07:37 94 H 32 H 97 10/21/19 07:30 37.6 C H 93 H 35 H 97 10/21/19 07:15 95 H 39 H 143/99 H 98 10/21/19 07:00 94 H 39 H 97 10/21/19 06:30 96 H 40 H 96 10/21/19 06:15 98 H 40 H 148/105 H 96 10/21/19 06:00 37.2 C 98 H 34 H 97 10/21/19 05:30 95 H 36 H 96 10/21/19 05:15 95 H 37 H 146/103 H 97 10/21/19 05:10 93 H 34 H 97 10/21/19 05:00 88 39 H 96 10/21/19 04:30 87 32 H 96 10/21/19 04:15 94 H 31 H 138/96 97 10/21/19 04:00 37.2 C 94 H 38 H 97 10/21/19 03:30 93 H 37 H 96 10/21/19 03:15 91 H 36 H 138/97 97 10/21/19 03:00 94 H 38 H 97 10/21/19 02:30 97 H 39 H 95 10/21/19 02:20 98 H 40 H 96 10/21/19 02:15 97 H 36 H 146/103 H 95 10/21/19 02:00 95 H 39 H 96 10/21/19 01:30 98 H 39 H 95 10/21/19 01:28 99 H 40 H 160/107 H 95 10/21/19 01:00 37.2 C 93 H 36 H 97 10/21/19 00:30 93 H 43 H 96 10/21/19 00:15 98 H 39 H 152/111 H 96 10/21/19 00:00 37 C 95 H 36 H 96 10/20/19 23:30 94 H 44 H 95 10/20/19 23:15 100 H 43 H 153/112 H 96 10/20/19 23:10 95 H 36 H 95 PG Care Time/CCT Total # of Minutes Spent Total Time Spent with Patient: Total time spent is greater than 50% in coordination of care (as documented) at patient's floor/unit and/or counseling patient: Coding Level of Care Code 50515 Subseq Hosp Care Lvl 3 Diagnoses Acute kidney injury N17.9 NSTEMI, initial episode of care I21.4 Sepsis due to gram-negative UTI A41.50; N39.0 Hydronephrosis with urinary obstruction due to ureteral calculus N13.2 Anemia D64.9 Admitted to intensive care unit Z78.9 Cardiomyopathy I42.9
[2019-10-21] MEDS: FAMOTIDINE 20 MG in SYRINGE 3 ML IV SCH (12:10)
--- NOTE | 2019-10-21 19:12 | Critical Care Progress Note ---
Date of Service October 21, 2019 Assessment & Plan (1) Hydronephrosis with urinary obstruction due to ureteral calculus: Reason Critically Ill: 49-year-old female admitted with sepsis from urinary source and retained right sided ureteral calculus, with complicating NSTEMI and subsequent volume overload in the setting of aggressive fluid resuscitation. Patient was sent to the ICU for hemodynamic monitoring and possible need for impending airway protection. 24 hr events: Patient was extubated 10/19. Continues on IV zosyn for gram - bacteremia (per OSH cultures). Put out >1.2 liters of urine over past day. Cr peaked, but now trending down. Bicarb drip discontinued. Platelets remain low at 14k. Oxygen requirement decreasing. Tolerating a clear diet. Stable and ready for medical downgrade. Neuro: CAM ICU: Positive -ICU delirium * Check EKG then consider Zyprexa. -EKG today QTC 498 avoiding antipsychotics secondary to prolonged QTC * Encourage sleep hygiene Cardiac: * NSTEMI - likely secondary to demand ischemia (sepsis being high output state) - troponin peaked to 6.8 and has since trended down. * Cardiomyopathy - Echo 10/18 showing reduced EF 25-30%. Repeat echo today showing mild improvement, EF 35-40%. Etiology acute in the setting of increased demand (septic state) vs. chronic, non-ischemic cardiomyopathy - cardiology following, appreciate recs * CHF - likely secondary to above cardiomyopathy. CXR from today reviewed, showing pulmonary vascular congestion without pleural effusions. No maintenance fluids; only fluid is IV zosyn * Prolonged QTC -Continue to monitor, unclear if this is baseline Respiratory: * Acute respiratory failure with hypoxia: Improving GI: * clera liquid diet- advance as tolerated RENAL/LYTES: * Acute Renal Failure -improving -Passive diuresis at this time * Reviewed nephrology notes : * R obstructive ureteral stone s/p removal and stent placement. Retrograde pyeloureterogram confirming proper stent placement. Kidney aspirate culture growing gram negative bacilli. - On Day 4 of Zosyn. ENDO: * No history of diabetes or thyroid disease. ICU protocol for hyperglycemia HEME: * Anemia improving: Suspect bone marrow suppression - Stools Hemoccult + -Thrombocytopenia persistent * Thrombocytopenia - platelets remains at 14k. s/p transfusion 1 unit 10/19. Heparin platelet antibody negative. Fibrinogen 680. Smear without schistocytes. PT normal at 11.9. aPPT elevated 44.8 d-dimer elevated to >6000 on 10/18. although sepsis is risk factor, low concern for DIC at this time given normal fibrinogen and absence of schistocytes. ID: * Sepsis - secondary to urinary source. SIRS criteria met on admission. Lactate elevated to 4.4 on admission, down to 1.0. procal elevated to 159 on admission. WBC normal. - stent placed. - Currently on Day 4 of IV zosyn. -Reviewed sensitivity results, E. coli pansensitive -Patient has episode of mild fever will continue IV antibiotics anticipation of 14 days of therapy -Transitioning to 2 g continuous infusion of Rocephin secondary to continued symptomatology (fever) and retained nidus. - kidney aspirate culture obtained in Or on 10/18 growing gram - bacilli - Nasal MRSA swab negative LINES/IV ACCESS: * PIVs x2. * Jimenez catheter CODE STATUS: Full Code DVT PROPHYLAXIS: SCDs: Ambulation (2) Delirium: (3) Prolonged Q-T interval on ECG: Subjective Patient states she got out of bed and ambulated in the halls today, subjectively feeling better. present at bedside stated she is still rather loopy this was also confirmed via bedside nursing. Review of Systems Review of Systems: Afebrile, mild back pain Physical Exam Physical Exam: General: Alert. Appears mildly unwell Skin: Warm, dry, Head: Atraumatic Ears, nose, mouth and throat: airway patent, moist mucous membranes Cardiovascular: Normal peripheral perfusion Respiratory: Tachypnea Gastrointestinal: Non distended Musculoskeletal: No deformity Results & Data ([facility]) Vital Signs (Past 12 Hours) Vital Signs Temp Pulse Resp BP Pulse Ox 10/21/19 18:16 85 35 H 130/93 95 10/21/19 18:00 84 39 H 94 10/21/19 17:30 83 29 H 96 10/21/19 17:16 79 40 H 128/94 95 10/21/19 17:00 80 37 H 94 10/21/19 16:30 81 36 H 96 10/21/19 16:16 79 40 H 132/90 95 10/21/19 16:00 37.2 C 81 46 H 96 10/21/19 15:30 75 30 H 96 10/21/19 15:16 81 34 H 138/100 96 10/21/19 15:00 80 43 H 97 10/21/19 14:30 83 43 H 95 10/21/19 14:16 86 41 H 134/92 96 10/21/19 14:00 82 45 H 94 10/21/19 13:30 86 30 H 98 10/21/19 13:16 89 35 H 142/103 H 97 10/21/19 13:00 85 34 H 97 10/21/19 12:30 89 34 H 96 10/21/19 12:16 91 H 39 H 142/107 H 97 10/21/19 12:00 92 H 27 H 98 10/21/19 11:30 90 36 H 96 10/21/19 11:16 84 35 H 134/97 97 10/21/19 11:00 98 H 54 H 94 10/21/19 10:54 93 H 38 H 97 10/21/19 10:30 86 97 10/21/19 10:16 95 H 148/105 H 97 10/21/19 10:00 89 38 H 98 10/21/19 09:30 86 37 H 98 10/21/19 09:16 91 H 37 H 141/106 H 98 10/21/19 09:00 87 34 H 98 10/21/19 08:30 91 H 37 H 97 10/21/19 08:16 89 34 H 143/101 H 97 10/21/19 08:00 92 H 38 H 98 10/21/19 07:37 94 H 32 H 97 10/21/19 07:30 37.6 C H 93 H 35 H 97 10/21/19 07:15 95 H 39 H 143/99 H 98 Laboratory Results 10/21/19 10/21/19 10/21/19 Range/Units 12:05 04:47 04:47 WBC (4.8-10.8) K/uL RBC (4.2-5.4) M/uL Hgb (12.0-16.0) g/dL POC Hgb (12.0-16.0) g/dl Hct (37-47) % POC Hct (37-47) % MCV (80-100) fL MCH (25-34) pg MCHC (32-36) g/dL RDW Std Deviation (36.4-46.3) fL RDW Coeff of Nadeen (11.5-14.5) % Plt Count (130-400) K/uL Immature Gran % (Auto) % Neut % (Auto) % Lymph % (Auto) % Sebastian % (Auto) % Eos % (Auto) % Baso % (Auto) % Immature Gran # (Auto) (0.00-0.02) K/uL Neut # (Auto) (1.4-6.5) K/uL Lymph # (Auto) (1.2-3.4) K/uL Sebastian # (Auto) (0.11-0.59) K/uL Eos # (Auto) (0-0.5) K/uL Baso # (Auto) (0-0.2) K/uL Toxic Granulation Toxic Vacuolation Dohle Bodies Platelet Estimate (Normal) PT 11.1 (9.0-12.0) Seconds INR 1.1 (0.9-1.1) APTT 25.0 (21.0-31.0) Seconds PTT Ratio 0.9 Sample Site POC pH (7.35-7.45) POC pCO2 (35-46) mmHg POC pO2 (80-95) mmHg POC HCO3 (19-24) jackeline/L POC Total CO2 (24-31) mmol/L POC Base Excess (-9-1.8) jackeline/L ABG pH (Temp Correct) (7.35-7.45) ABG pCO2 (Temp Corrct (35-46) mmHg POC ABG pO2 at Pt Temp Singh Test VBG pH (7.36-7.41) VBG pCO2 (38-50) mmHg VBG pO2 mmHg VBG HCO3 mmol/L VBG O2 Saturation % VBG Base Excess mEq/L O2 Delivery Device POC O2 Rate POC FiO2 % IPAP POC Sodium (135-144) mmol/L Sodium 143 (136-145) mmol/L POC Potassium (3.3-5.0) mmol/L Potassium 4.1 (3.5-5.1) mmol/L Chloride 110 H (98-107) mmol/L Carbon Dioxide 25 (21-32) mmol/L Anion Gap 8.0 (3-11) BUN 71 H (7-18) mg/dl Creatinine 2.60 H (0.6-1.2) mg/dl Est Cr Clr Drug Dosing 30.2 ml/min Est GFR ( Amer) 23.8 Est GFR (Non-Af Amer) 20.5 BUN/Creatinine Ratio 27.2 H (10-20) Glucose 105 H (70-99) mg/dl POC Glucose 129 H (70-99) mg/dl Lactate (0.4-2.0) mmol/L Calcium 8.4 L (8.5-10.1) mg/dl Phosphorus 3.6 (2.5-4.9) mg/dl Magnesium 2.7 H (1.8-2.4) mg/dl Total Bilirubin 1.7 H (0.2-1) mg/dl Direct Bilirubin 0.9 H (0-0.2) mg/dl AST 32 (15-37) U/L ALT 38 (12-78) U/L Alkaline Phosphatase 176 H (45-117) U/L NT-Pro-B Natriuret Pep > 70625 H (0-900) pg/ml Total Protein 6.1 L (6.4-8.2) gm/dl Albumin 1.8 L (3.4-5.0) gm/dl Lipase 349 (73-393) U/L Blood Type Antibody Screen Crossmatch 10/21/19 10/21/19 10/21/19 Range/Units 04:47 00:20 00:20 WBC 10.31 (4.8-10.8) K/uL RBC 3.64 L (4.2-5.4) M/uL Hgb 10.2 L (12.0-16.0) g/dL POC Hgb (12.0-16.0) g/dl Hct 30.1 L (37-47) % POC Hct (37-47) % MCV 82.7 (80-100) fL MCH 28.0 (25-34) pg MCHC 33.9 (32-36) g/dL RDW Std Deviation 44.5 (36.4-46.3) fL RDW Coeff of Nadeen 14.6 H (11.5-14.5) % Plt Count 12 L* (130-400) K/uL Immature Gran % (Auto) 0.7 % Neut % (Auto) 80.1 % Lymph % (Auto) 8.3 % Sebastian % (Auto) 10.2 % Eos % (Auto) 0.5 % Baso % (Auto) 0.2 % Immature Gran # (Auto) 0.07 H (0.00-0.02) K/uL Neut # (Auto) 8.26 H (1.4-6.5) K/uL Lymph # (Auto) 0.86 L (1.2-3.4) K/uL Sebastian # (Auto) 1.05 H (0.11-0.59) K/uL Eos # (Auto) 0.05 (0-0.5) K/uL Baso # (Auto) 0.02 (0-0.2) K/uL Toxic Granulation Occasional Toxic Vacuolation Occasional Dohle Bodies 1+ Platelet Estimate SIGNIFIC DECREASED (Normal) PT (9.0-12.0) Seconds INR (0.9-1.1) APTT (21.0-31.0) Seconds PTT Ratio Sample Site POC pH (7.35-7.45) POC pCO2 (35-46) mmHg POC pO2 (80-95) mmHg POC HCO3 (19-24) jackeline/L POC Total CO2 (24-31) mmol/L POC Base Excess (-9-1.8) jackeline/L ABG pH (Temp Correct) (7.35-7.45) ABG pCO2 (Temp Corrct (35-46) mmHg POC ABG pO2 at Pt Temp Singh Test VBG pH 7.50 H (7.36-7.41) VBG pCO2 31 L (38-50) mmHg VBG pO2 73 mmHg VBG HCO3 24 mmol/L VBG O2 Saturation 94.8 % VBG Base Excess 0.9 mEq/L O2 Delivery Device POC O2 Rate POC FiO2 % IPAP POC Sodium (135-144) mmol/L Sodium 140 (136-145) mmol/L POC Potassium (3.3-5.0) mmol/L Potassium 4.2 D (3.5-5.1) mmol/L Chloride 109 H (98-107) mmol/L Carbon Dioxide 23 (21-32) mmol/L Anion Gap 8.0 (3-11) BUN 70 H (7-18) mg/dl Creatinine 2.62 H D (0.6-1.2) mg/dl Est Cr Clr Drug Dosing 30.0 ml/min Est GFR ( Amer) 23.6 Est GFR (Non-Af Amer) 20.3 BUN/Creatinine Ratio 26.6 H (10-20) Glucose 114 H (70-99) mg/dl POC Glucose (70-99) mg/dl Lactate (0.4-2.0) mmol/L Calcium 8.0 L (8.5-10.1) mg/dl Phosphorus (2.5-4.9) mg/dl Magnesium (1.8-2.4) mg/dl Total Bilirubin (0.2-1) mg/dl Direct Bilirubin (0-0.2) mg/dl AST (15-37) U/L ALT (12-78) U/L Alkaline Phosphatase (45-117) U/L NT-Pro-B Natriuret Pep (0-900) pg/ml Total Protein (6.4-8.2) gm/dl Albumin (3.4-5.0) gm/dl Lipase (73-393) U/L Blood Type Antibody Screen Crossmatch 10/21/19 10/20/19 10/18/19 Range/Units 00:20 21:24 10:31 WBC (4.8-10.8) K/uL RBC (4.2-5.4) M/uL Hgb (12.0-16.0) g/dL POC Hgb 8.8 L (12.0-16.0) g/dl Hct (37-47) % POC Hct 26 L (37-47) % MCV (80-100) fL MCH (25-34) pg MCHC (32-36) g/dL RDW Std Deviation (36.4-46.3) fL RDW Coeff of Nadeen (11.5-14.5) % Plt Count (130-400) K/uL Immature Gran % (Auto) % Neut % (Auto) % Lymph % (Auto) % Sebastian % (Auto) % Eos % (Auto) % Baso % (Auto) % Immature Gran # (Auto) (0.00-0.02) K/uL Neut # (Auto) (1.4-6.5) K/uL Lymph # (Auto) (1.2-3.4) K/uL Sebastian # (Auto) (0.11-0.59) K/uL Eos # (Auto) (0-0.5) K/uL Baso # (Auto) (0-0.2) K/uL Toxic Granulation Toxic Vacuolation Dohle Bodies Platelet Estimate (Normal) PT (9.0-12.0) Seconds INR (0.9-1.1) APTT (21.0-31.0) Seconds PTT Ratio Sample Site L Radial POC pH 7.51 H* (7.35-7.45) POC pCO2 29 L (35-46) mmHg POC pO2 77 L (80-95) mmHg POC HCO3 23 (19-24) jackeline/L POC Total CO2 24 (24-31) mmol/L POC Base Excess 0.0 (-9-1.8) jackeline/L ABG pH (Temp Correct) 7.512 H* (7.35-7.45) ABG pCO2 (Temp Corrct 29 L (35-46) mmHg POC ABG pO2 at Pt Temp 77 Singh Test Pass VBG pH (7.36-7.41) VBG pCO2 (38-50) mmHg VBG pO2 mmHg VBG HCO3 mmol/L VBG O2 Saturation % VBG Base Excess mEq/L O2 Delivery Device BIPAP POC O2 Rate 12 POC FiO2 40 % IPAP 12 POC Sodium 140 (135-144) mmol/L Sodium (136-145) mmol/L POC Potassium 3.8 (3.3-5.0) mmol/L Potassium (3.5-5.1) mmol/L Chloride (98-107) mmol/L Carbon Dioxide (21-32) mmol/L Anion Gap (3-11) BUN (7-18) mg/dl Creatinine (0.6-1.2) mg/dl Est Cr Clr Drug Dosing ml/min Est GFR ( Amer) Est GFR (Non-Af Amer) BUN/Creatinine Ratio (10-20) Glucose (70-99) mg/dl POC Glucose (70-99) mg/dl Lactate 1.1 (0.4-2.0) mmol/L Calcium (8.5-10.1) mg/dl Phosphorus (2.5-4.9) mg/dl Magnesium (1.8-2.4) mg/dl Total Bilirubin (0.2-1) mg/dl Direct Bilirubin (0-0.2) mg/dl AST (15-37) U/L ALT (12-78) U/L Alkaline Phosphatase (45-117) U/L NT-Pro-B Natriuret Pep (0-900) pg/ml Total Protein (6.4-8.2) gm/dl Albumin (3.4-5.0) gm/dl Lipase (73-393) U/L Blood Type O Positive Antibody Screen NEGATIVE Crossmatch See Detail Coding Level of Care Code 35819 Subseq Hosp Care Lvl 3 Diagnoses Hydronephrosis with urinary obstruction due to ureteral calculus N13.2 Delirium R41.0 Prolonged Q-T interval on ECG R94.31
[2019-10-21] MEDS: cefTRIAXone SODIUM 2,000 MG in DEXTROSE 5% 50 ML IV SCH (20:04)
--- NOTE | 2019-10-21 22:50 | Hospitalist Progress Note ---
Date of Service October 21, 2019 Assessment & Plan (1) Admitted to intensive care unit: Consult to director cardiovascular Dr. Stacy and staff. (2) NSTEMI, initial episode of care: The patient will have ordered serial cardiac enzymes, serial EKG's, cardiac rhythm monitoring and a 2-D echocardiogram with Dopplers. Initial troponin at [facility] was 1.5. Trop peaked at 6.8 Consulted cardiology. Appreciate input (3) Acute respiratory failure with hypoxia: Patient is currently extubated. Still tachypnic. More awake, may consider transferring out of the ICU.. Await input from [employer]. (4) Sepsis due to gram-negative UTI: Sepsis due to gram-negative UTI/hydronephrosis with urinary obstruction due to ureteral calculus- Continue empiric treatment vancomycin IV and Zosyn IV. awaiting cultures from [facility].. (5) Hydronephrosis with urinary obstruction due to ureteral calculus: See above (6) Altered mental status: Patient upon first presentation to [facility] on 01/12 had normal mentation. Upon presentation to [facility] ED on the evening of 01/13 she was noted to be confused. Upon arrival to [facility] ICU patient does answer questions appropriately. (7) Anemia: hemoglobin stable at 8.5 will monitor. (8) Metabolic acidosis: Improved with bicarb drip. Admission and Anticipated Discharge Date Admission Date: October 18, 2019 Subjective Patient is more awake. She knows she is in the hospital She states she is breathing better. She does not realize why she is breathing fast however. Review of Systems Review of Systems: All systems reviewed & are unremarkable except as noted in HPI & below Physical Exam Physical Exam: The patient is lying in bed, AAOX2, Patient is in no distress.Patient is tachypnic. HEENT--PERRL, EOMI, mucous membranes and oropharynx dry. Neck--supple. No JVD. No bruits. Thyroid normal, trachea midline, no adenopathy. Heart--normal S1 and S2. No murmurs, rubs or gallops. Lungs--tachypnic, using accessory muscles to breath, bilateral rhonchi Abdomen--normal bowel sounds and soft. Nontender. Mildly tympanitic. Extremities--no cyanosis or clubbing. Trace bilateral pretibial pitting edema. Dermatologic--normal skin turgor, normal color, no abnormal lymph nodes, no rash. Neuro: follows commands Results & Data ([facility]) Vital Signs (Past 12 Hours) Vital Signs Temp Pulse Resp BP Pulse Ox 10/21/19 20:16 36.8 C 83 31 H 128/88 95 10/21/19 19:16 85 43 H 143/95 H 95 10/21/19 18:16 85 35 H 130/93 95 10/21/19 18:00 84 39 H 94 10/21/19 17:30 83 29 H 96 10/21/19 17:16 79 40 H 128/94 95 10/21/19 17:00 80 37 H 94 10/21/19 16:30 81 36 H 96 10/21/19 16:16 79 40 H 132/90 95 10/21/19 16:00 37.2 C 81 46 H 96 10/21/19 15:30 75 30 H 96 10/21/19 15:16 81 34 H 138/100 96 10/21/19 15:00 80 43 H 97 10/21/19 14:30 83 43 H 95 10/21/19 14:16 86 41 H 134/92 96 10/21/19 14:00 82 45 H 94 10/21/19 13:30 86 30 H 98 10/21/19 13:16 89 35 H 142/103 H 97 10/21/19 13:00 85 34 H 97 10/21/19 12:30 89 34 H 96 10/21/19 12:16 91 H 39 H 142/107 H 97 10/21/19 12:00 92 H 27 H 98 10/21/19 11:30 90 36 H 96 10/21/19 11:16 84 35 H 134/97 97 10/21/19 11:00 98 H 54 H 94 10/21/19 10:54 93 H 38 H 97 PG Care Time/CCT Total # of Minutes Spent Total Time Spent with Patient: Total time spent is greater than 50% in coordination of care (as documented) at patient's floor/unit and/or counseling patient: Coding Level of Care Code 14288 Subseq Hosp Care Lvl 2 Diagnoses Admitted to intensive care unit Z78.9 NSTEMI, initial episode of care I21.4 Acute respiratory failure with hypoxia J96.01 Sepsis due to gram-negative UTI A41.50; N39.0 Hydronephrosis with urinary obstruction due to ureteral calculus N13.2 Altered mental status R41.82 Anemia D64.9 Metabolic acidosis E87.2 Time Spent (min) 25
[2019-10-22 05:40] LABS: Calcium 8.2 mg/dl (8.5-10.1); Creatinine Clr Calc Pharmacy 40.4 ml/min; Est GFR (Non-African American) 30.2; Magnesium 2.4 mg/dl (1.8-2.4); Potassium 3.8 mmol/L (3.5-5.1)
[2019-10-22 05:46] LABS: Phosphorus 2.8 mg/dl (2.5-4.9)
[2019-10-22 05:54] LABS: Basophils # (auto) 0.02 K/uL (0-0.2); Basophils % (auto) 0.2 %; Dohle Bodies 1+; Eosinophils # (auto) 0.05 K/uL (0-0.5); Eosinophils % (auto) 0.5 %; Hematocrit (blood only) 29.4 % (37-47); Hemoglobin 9.8 g/dL (12.0-16.0); Immature Granulocytes # (auto) 0.11 K/uL (0.00-0.02); Lymphocytes # (auto) 0.95 K/uL (1.2-3.4); Lymphocytes % (auto) 8.6 %; Mean Corpuscular Hemoglobin 28.1 pg (25-34); Mean Corpuscular Hgb Conc 33.3 g/dL (32-36); Mean Corpuscular Volume 84.2 fL (80-100); Monocytes # (auto) 1.26 K/uL (0.11-0.59); Monocytes % (auto) 11.4 %; Neutrophils # (auto) 8.68 K/uL (1.4-6.5); Neutrophils % (auto) 78.3 %; Platelet Count 26 K/uL (130-400); Platelet Estimate SIGNIFIC DECREASED (Normal); RDW Coefficient of Variation 14.7 % (11.5-14.5); RDW Standard Deviation 45.7 fL (36.4-46.3); Red Blood Count 3.49 M/uL (4.2-5.4); White Blood Count 11.07 K/uL (4.8-10.8)
[2019-10-22] MEDS ORDERED: ACETAMINOPHEN 325 MG TAB PO ONE (08:51)
--- NOTE | 2019-10-22 09:58 | Critical Care Progress Note ---
Date of Service October 22, 2019 Assessment & Plan (1) Hydronephrosis with urinary obstruction due to ureteral calculus: Reason Critically Ill: 49-year-old female admitted with sepsis from urinary source and retained right sided ureteral calculus, with complicating NSTEMI and subsequent volume overload in the setting of aggressive fluid resuscitation. Patient was sent to the ICU for hemodynamic monitoring and possible need for impending airway protection. 24 hr events: Patient was extubated 10/19. Continues on IV zosyn for gram - bacteremia (per OSH cultures). Put out >1.2 liters of urine over past day. Cr peaked, but now trending down. Bicarb drip discontinued. Platelets remain low at 14k. Oxygen requirement decreasing. Tolerating a clear diet. Stable and ready for medical downgrade. Neuro: CAM ICU: Positive -ICU delirium * Check EKG then consider Zyprexa. -EKG today QTC 498 avoiding antipsychotics secondary to prolonged QTC * Encourage sleep hygiene Cardiac: * NSTEMI - likely secondary to demand ischemia (sepsis being high output state) - troponin peaked to 6.8 and has since trended down. * Cardiomyopathy - Echo 10/18 showing reduced EF 25-30%. Repeat echo today showing mild improvement, EF 35-40%. Etiology acute in the setting of increased demand (septic state) vs. chronic, non-ischemic cardiomyopathy - cardiology following, appreciate recs * CHF - likely secondary to above cardiomyopathy. CXR from today reviewed, showing pulmonary vascular congestion without pleural effusions. No maintenance fluids; only fluid is IV zosyn * Prolonged QTC -Continue to monitor, unclear if this is baseline Respiratory: * Acute respiratory failure with hypoxia: Improving GI: * clera liquid diet- advance as tolerated RENAL/LYTES: * Acute Renal Failure -improving -Passive diuresis at this time * Reviewed nephrology notes : * R obstructive ureteral stone s/p removal and stent placement. Retrograde pyeloureterogram confirming proper stent placement. Kidney aspirate culture growing gram negative bacilli. - On Day 4 of Zosyn. ENDO: * No history of diabetes or thyroid disease. ICU protocol for hyperglycemia HEME: * Anemia improving: Suspect bone marrow suppression - Stools Hemoccult + -Thrombocytopenia persistent * Thrombocytopenia - platelets remains at 14k. s/p transfusion 1 unit 10/19. Heparin platelet antibody negative. Fibrinogen 680. Smear without schistocytes. PT normal at 11.9. aPPT elevated 44.8 d-dimer elevated to >6000 on 10/18. although sepsis is risk factor, low concern for DIC at this time given normal fibrinogen and absence of schistocytes. ID: * Sepsis - secondary to urinary source. SIRS criteria met on admission. Lactate elevated to 4.4 on admission, down to 1.0. procal elevated to 159 on admission. WBC normal. - stent placed. - Currently on Day 4 of IV zosyn. -Reviewed sensitivity results, E. coli pansensitive -Patient has episode of mild fever will continue IV antibiotics anticipation of 14 days of therapy -Transitioning to 2 g continuous infusion of Rocephin secondary to continued symptomatology (fever) and retained nidus. - kidney aspirate culture obtained in Or on 10/18 growing gram - bacilli - Nasal MRSA swab negative LINES/IV ACCESS: * PIVs x2. * Jimenez catheter CODE STATUS: Full Code DVT PROPHYLAXIS: SCDs: Ambulation (2) Delirium: (3) Prolonged Q-T interval on ECG: Results & Data ([facility]) Vital Signs (Past 12 Hours) Vital Signs Temp Pulse Resp BP Pulse Ox 10/22/19 09:30 79 25 H 94 10/22/19 09:16 78 30 H 134/84 93 10/22/19 09:00 84 32 H 95 10/22/19 08:30 80 17 93 10/22/19 08:16 75 26 H 126/90 94 10/22/19 08:00 36.4 C 80 29 H 93 10/22/19 07:30 85 18 90 10/22/19 07:16 75 33 H 129/92 93 10/22/19 07:00 77 25 H 92 10/22/19 06:30 75 32 H 95 10/22/19 06:17 72 29 H 95 10/22/19 06:16 35.5 C L 74 22 129/87 93 10/22/19 05:16 81 34 H 137/95 92 10/22/19 04:16 76 32 H 129/88 93 10/22/19 03:16 82 30 H 127/88 94 10/22/19 02:16 76 31 H 131/88 95 10/22/19 01:16 78 31 H 133/86 95 10/22/19 00:16 77 25 H 135/88 95 10/21/19 23:16 78 30 H 130/89 97 02/29/20 22:16 36.8 C 80 24 128/90 96 Coding Diagnoses Hydronephrosis with urinary obstruction due to ureteral calculus N13.2 Delirium R41.0 Prolonged Q-T interval on ECG R94.31
--- NOTE | 2019-10-22 10:25 | Nephrology Progress Note ---
Date of Service October 22, 2019 Assessment & Plan (1) Acute kidney injury: ZION secondary to ATN in the setting of gram negative sepsis, unilateral obstruction, recent NSAID use. Non-oliguric. Creatinine stable. Electrolytes acceptable. BP and volume status reasonably controlled. Medications are appropriately dosed for kidney function. Remains on renally dosed Zosyn for gm negative sepsis. Renal function improving. -- patient auto diuresing and has been net negative. OK to use Diuretics as needed if urine output drops, to encourage an even to slightly negative fluid balance. --encourage po intake --Document I/O's. Repeat metabolic profile tomorrow AM. will follow (2) NSTEMI, initial episode of care: Cardiology consultation reviewed. No plan for coronary angiography at this time. Clinically improved. (3) Sepsis due to gram-negative UTI: Remains on Zosyn. Repeat cultures pending. (4) Hydronephrosis with urinary obstruction due to ureteral calculus: CT reviewed. POD #2 s/p stent placement. (5) Anemia: With acute thrombocytopenia. Unclear etiology. Findings of anaplasmosis (including inclusion bodies) noted noted. Peripheral smear did not demonstrate schistocytes or evidence of MAHA in terms of LDH or bilirubin. Attributed to acute infection for now with close prospective monitoring. HIT ab testing negative. (6) Admitted to intensive care unit: 30 minutes of critical care time provided today. (7) Cardiomyopathy: TTE reviewed. Nafisa Lange Was seen and examined in her room this morning. Still tired nad has occasional headache but overall feeling better, denies shortness of breath. Has decent urine output and remained net negative >1 L Renal function improved, electrolyte acceptable. Review of Systems Review of Systems: All systems reviewed & are unremarkable except as noted in HPI & below Physical Exam Constitutional: + ill appearing; no acute distress Respiratory: normal respiratory effort, lungs clear to auscultation normal respiratory effort; no respiratory distress Cardiovascular: RRR, no murmur, no edema Skin: no rashes, warm and dry Neurologic: moves all extremities and awake; not confused Psychiatric: A+Ox3, euthymic affect Results & Data Vital Signs (Past 12 Hours) Vital Signs Temp Pulse Resp BP Pulse Ox 10/22/19 09:30 79 25 H 94 10/22/19 09:16 78 30 H 134/84 93 10/22/19 09:00 84 32 H 95 10/22/19 08:30 80 17 93 10/22/19 08:16 75 26 H 126/90 94 10/22/19 08:00 36.4 C 80 29 H 93 10/22/19 07:30 85 18 90 10/22/19 07:16 75 33 H 129/92 93 10/22/19 07:00 77 25 H 92 10/22/19 06:30 75 32 H 95 10/22/19 06:17 72 29 H 95 10/22/19 06:16 35.5 C L 74 22 129/87 93 10/22/19 05:16 81 34 H 137/95 92 10/22/19 04:16 76 32 H 129/88 93 10/22/19 03:16 82 30 H 127/88 94 10/22/19 02:16 76 31 H 131/88 95 10/22/19 01:16 78 31 H 133/86 95 10/22/19 00:16 77 25 H 135/88 95 10/21/19 23:16 78 30 H 130/89 97 PG Care Time/CCT Total # of Minutes Spent Total Time Spent with Patient: Total time spent is greater than 50% in coordination of care (as documented) at patient's floor/unit and/or counseling patient: Coding Level of Care Code 90046 Subseq Hosp Care Lvl 3 Diagnoses Acute kidney injury N17.9 NSTEMI, initial episode of care I21.4 Sepsis due to gram-negative UTI A41.50; N39.0 Hydronephrosis with urinary obstruction due to ureteral calculus N13.2 Anemia D64.9 Admitted to intensive care unit Z78.9 Cardiomyopathy I42.9
--- NOTE | 2019-10-22 12:45 | Electrocardiogram Report ---
Test Reason : Blood Pressure : / mmHG Vent. Rate : 084 BPM Atrial Rate : 084 BPM P-R Int : 172 ms QRS Dur : 090 ms QT Int : 422 ms P-R-T Axes : 030 029 110 degrees QTc Int : 498 ms Normal sinus rhythm Prolonged QT Abnormal ECG When compared with ECG of 20-OCT-2019 07:45, Left posterior fascicular block is no longer Present Nonspecific T wave abnormality no longer evident in Inferior leads QT has prolonged Confirmed by Mulugeta Lopez ([id number] on 10/22/2019 12:44:43 PM Referred By: Shamar Vazquez Confirmed By:Mulugeta Lopez
[2019-10-22] MEDS: cefTRIAXone SODIUM 2,000 MG in DEXTROSE 5% 50 ML IV SCH (18:52)
--- NOTE | 2019-10-22 22:19 | Hospitalist Progress Note ---
Date of Service October 22, 2019 Assessment & Plan (1) Admitted to intensive care unit: Consult to dry kiln operator Dr. Stacy and staff. (2) NSTEMI, initial episode of care: The patient will have ordered serial cardiac enzymes, serial EKG's, cardiac rhythm monitoring and a 2-D echocardiogram with Dopplers. Initial troponin at [facility] was 1.5. Trop peaked at 6.8 Consulted cardiology. Appreciate input (3) Acute respiratory failure with hypoxia: Patient is currently extubated. Still tachypnic but now 24 instead of >40 RR. Likely anxiety driven. Will transfer out of the ICU on 10/21 (4) Sepsis due to gram-negative UTI: Sepsis due to gram-negative UTI/hydronephrosis with urinary obstruction due to ureteral calculus- Continue empiric treatment vancomycin IV and Zosyn IV. awaiting cultures from [facility].. (5) Hydronephrosis with urinary obstruction due to ureteral calculus: See above (6) Altered mental status: Patient upon first presentation to [facility] on 01/12 had normal mentation. Upon presentation to [facility] ED on the evening of 01/13 she was noted to be confused. Upon arrival to [facility] ICU patient does answer questions appropriately. Now she is able to carry a conversation, but is only oriented to place (knows shes in a hospital, but initially thought it was [place]) and person. (7) Anemia: hemoglobin stable at 9.8 will monitor. (8) Metabolic acidosis: Improved with bicarb drip. This has stopped Admission and Anticipated Discharge Date Admission Date: October 18, 2019 Subjective Patient has no new complaints at this time. She states she is breathing better. Review of Systems Review of Systems: All systems reviewed & are unremarkable except as noted in HPI & below Physical Exam Physical Exam: The patient is lying in bed, AAOX2, Patient is in no distress.Patient is tachypnic. HEENT--PERRL, EOMI, mucous membranes and oropharynx dry. Neck--supple. No JVD. No bruits. Thyroid normal, trachea midline, no adenopathy. Heart--normal S1 and S2. No murmurs, rubs or gallops. Lungs--tachypnic, using accessory muscles to breath, bilateral rhonchi Abdomen--normal bowel sounds and soft. Nontender. Mildly tympanitic. Extremities--no cyanosis or clubbing. Trace bilateral pretibial pitting edema. Dermatologic--normal skin turgor, normal color, no abnormal lymph nodes, no rash. Neuro: follows commands Results & Data ([facility]) Vital Signs (Past 12 Hours) Vital Signs Temp Pulse Resp BP BP Pulse Ox 10/22/19 19:52 36.9 C 83 18 143/89 H 94 10/22/19 18:23 36.9 C 87 18 139/87 91 PG Care Time/CCT Total # of Minutes Spent Total Time Spent with Patient: Total time spent is greater than 50% in coordination of care (as documented) at patient's floor/unit and/or counseling patient: Coding Level of Care Code 76047 Subseq Hosp Care Lvl 2 Diagnoses Admitted to intensive care unit Z78.9 NSTEMI, initial episode of care I21.4 Acute respiratory failure with hypoxia J96.01 Sepsis due to gram-negative UTI A41.50; N39.0 Hydronephrosis with urinary obstruction due to ureteral calculus N13.2 Altered mental status R41.82 Anemia D64.9 Metabolic acidosis E87.2 Time Spent (min) 25
[2019-10-23 07:27] LABS: Basophils # (auto) 0.02 K/uL (0-0.2); Basophils % (auto) 0.1 %; Eosinophils # (auto) 0.13 K/uL (0-0.5); Hemoglobin 9.7 g/dL (12.0-16.0); Hypogranular Neutrophils 1+; Immature Granulocytes # (auto) 0.21 K/uL (0.00-0.02); Immature Granulocytes % (auto) 1.5 %; Lymphocytes # (auto) 1.25 K/uL (1.2-3.4); Lymphocytes % (auto) 9.2 %; Mean Corpuscular Hemoglobin 27.9 pg (25-34); Mean Corpuscular Hgb Conc 32.3 g/dL (32-36); Mean Corpuscular Volume 86.2 fL (80-100); Monocytes # (auto) 1.08 K/uL (0.11-0.59); Monocytes % (auto) 7.9 %; Neutrophils # (auto) 10.94 K/uL (1.4-6.5); Neutrophils % (auto) 80.3 %; Platelet Count 60 K/uL (130-400); Platelet Estimate Decreased (Normal); RDW Coefficient of Variation 14.9 % (11.5-14.5); RDW Standard Deviation 46.8 fL (36.4-46.3); Red Blood Count 3.48 M/uL (4.2-5.4); White Blood Count 13.63 K/uL (4.8-10.8)
[2019-10-23 07:38] LABS: BUN Creatinine Ratio 36.5 (10-20); Blood Urea Nitrogen 43 mg/dl (7-18); Calcium 8.2 mg/dl (8.5-10.1); Carbon Dioxide 26 mmol/L (21-32); Chloride 113 mmol/L (98-107); Creatinine Clr Calc Pharmacy 64.2 ml/min; Est GFR (African American) 61.2; Est GFR (Non-African American) 52.8; Glucose 96 mg/dl (70-99); Phosphorus 3.1 mg/dl (2.5-4.9); Sodium 143 mmol/L (136-145)
--- NOTE | 2019-10-23 08:46 | Hospitalist Progress Note ---
Date of Service October 23, 2019 Assessment & Plan (1) Sepsis due to gram-negative UTI: Sepsis due to gram-negative UTI/hydronephrosis with urinary obstruction due to ureteral calculus- urine culture with E coli will continue Rocephin while hospitalized, change to oral cephalosporin on discharge plan for 14 days total doing well, no fever, no pain from stone, WBC is 13k, will monitor (2) NSTEMI, initial episode of care: Initial troponin at [facility] was 1.5. Trop peaked at 6.8 no chest pain, this represents DEMAND ISCHEMIA, in setting of severe sepsis, respiratory failure, hypotension this is not a primary cardiac event (3) Acute respiratory failure with hypoxia: Patient is currently extubated. breathing is stable mildly volume overloaded, will give Lasix 20mg IV x 1 dose (4) Hydronephrosis with urinary obstruction due to ureteral calculus: s/p stent placement no pain continue antibiotics for 14 days total, follow up with urology (5) Altered mental status: Patient upon first presentation to [facility] on 01/12 had normal mentation. Upon presentation to [facility] ED on the evening of 01/13 she was noted to be confused. Upon arrival to [facility] ICU patient does answer questions appropriately. this is completely resolved, AAOX3 today this was encephalopathy in setting of severe sepsis (6) Anemia: hemoglobin stable at 9.8 will monitor. (7) Metabolic acidosis: due to sepsis and renal failure, resolved (8) Acute kidney injury: resolved, Cr down to 1.19 was due to severe sepsis, hypotension, dehydration electrolytes stable Lasix 20mg IV given today for diuresis, responded well will re-evaluate for repeat dosing tomorrow morning (9) Cardiomyopathy: EF reduced slightly, it actually improved on repeat echo likely due to severe sepsis remains fluid overloaded today, responded well to Lasix 20mg IV, will give another dose tomorrow based on exam Admission and Anticipated Discharge Date Admission Date: October 18, 2019 Anticipated date of discharge: 10/25/19 Subjective patient is feeling a lot better compared to time of admission she is tolerating liquid diet, wants real food, did well with this at lunch time marquis catheter still in place, she admits that she feels "puffy" and family agrees reviewed chart, prior events from this hospitalization reviewed labs today, WBC 13k, Hb 9.7, platelets coming up to 60 Cr down to 1.[address] Hernández, she will sign off no chest pain, no dyspnea, no nausea admits to occasional dry cough, tickle in her throat that she has had since extubation Review of Systems Review of Systems: All systems reviewed & are unremarkable except as noted in HPI & below Physical Exam Constitutional: WD/WN, vitals as above Eyes: PERRL, conjunctivae normal, anicteric sclerae ENMT: external ear and nose normal, oropharynx normal Neck: trachea midline, no thyromegaly Respiratory: normal respiratory effort, lungs clear to auscultation Cardiovascular: RRR, no murmur, no edema Gastrointestinal (Abdomen): normal bowel sounds, soft, nontender, no hepat osplenomegaly Musculoskeletal: no cyanosis or clubbing, extremities motor strength 5/5 Skin: no rashes, warm and dry Neurologic: patellar DTR's 2+ bilat, sensation intact and PERRL, EOMI, accommodation nl, no face palsy, no dysarthria Psychiatric: A+Ox3, euthymic affect Lymphatic: no cervical or axillary lymphadenopathy Results & Data ([facility]) Vital Signs (Past 12 Hours) Vital Signs Temp Pulse Resp BP Pulse Ox 10/23/19 07:15 36.8 C 77 18 128/81 93 10/23/19 03:36 36.8 C 72 17 129/84 92 10/22/19 23:14 37.0 C 83 17 146/89 H 92 Laboratory Results Laboratory Results - last 24 hr 10/23/19 10/23/19 06:17 06:17 WBC 13.63 H RBC 3.48 L Hgb 9.7 L Hct 30.0 L MCV 86.2 MCH 27.9 MCHC 32.3 RDW Std Deviation 46.8 H RDW Coeff of Nadeen 14.9 H Plt Count 60 L D Immature Gran % (Auto) 1.5 Neut % (Auto) 80.3 Lymph % (Auto) 9.2 [place] % (Auto) 7.9 Eos % (Auto) 1.0 Baso % (Auto) 0.1 Immature Gran # (Auto) 0.21 H Neut # (Auto) 10.94 H Lymph # (Auto) 1.25 [place] # (Auto) 1.08 H Eos # (Auto) 0.13 Baso # (Auto) 0.02 Hypogranular Neuts 1+ Platelet Estimate Decreased L Sodium 143 Potassium TNP Chloride 113 H Carbon Dioxide 26 Anion Gap 4.0 BUN 43 H Creatinine 1.19 D Est Cr Clr Drug Dosing 64.2 Est GFR ( Amer) 61.2 Est GFR (Non-Af Amer) 52.8 BUN/Creatinine Ratio 36.5 H Glucose 96 Calcium 8.2 L Phosphorus 3.1 Magnesium TNP Microbiology 10/18/19 12:10 Blood Aerobic Blood Culture - Final No growth in Aerobic bottle after 5 days. 10/18/19 12:10 Blood Anaerobic Blood Culture - Final No growth in Anaerobic bottle after 5 days. 10/18/19 12:18 Blood Aerobic Blood Culture - Final No growth in Aerobic bottle after 5 days. 10/18/19 12:18 Blood Anaerobic Blood Culture - Final No growth in Anaerobic bottle after 5 days. 10/18/19 10:02 Urine,Kidney Gram Stain - Final 10/18/19 10:02 Urine,Kidney Aerobic and Anaerobic Culture - Final Escherichia coli Medications Administered Current Inpatient Medications Albuterol (Duoneb) 3 ml INH Q4H PRN PRN Reason: Dyspnea Stop: 11/17/19 06:02 Last Admin: 10/20/19 22:57 Dose: 3 ml Documented by: Ceftriaxone Sodium 2,000 mg/ (Dextrose) 70 mls @ 2.917 mls/hr IV DAILY@2000 [place]; Protocol Stop: 11/04/19 19:59 Last Admin: 10/22/19 18:52 Dose: 2.9 mls/hr Documented by: Metoprolol Tartrate (Lopressor) 5 mg IV Q6 PRN PRN Reason: Undecided Stop: 11/17/19 10:39 PG Care Time/CCT Total # of Minutes Spent Total Time Spent with Patient: Total time spent is greater than 50% in coordination of care (as documented) at patient's floor/unit and/or counseling patient: Coding Level of Care Code 21561 Subseq Hosp Care Lvl 3 Diagnoses Sepsis due to gram-negative UTI A41.50; N39.0 NSTEMI, initial episode of care I21.4 Acute respiratory failure with hypoxia J96.01 Hydronephrosis with urinary obstruction due to ureteral calculus N13.2 Altered mental status R41.82 Anemia D64.9 Metabolic acidosis E87.2 Acute kidney injury N17.9 Cardiomyopathy I42.9
--- NOTE | 2019-10-23 09:02 | Cardiology Progress Note ---
Date of Service October 23, 2019 Assessment & Plan (1) Cardiomyopathy: She has a cardiomyopathy based on echocardiography on October 18, 2019 which to her knowledge she does not have historically, but she does not recall ever having an echocardiogram. I suspect it is due to her presentation with sepsis and may recover quickly, however could be longer standing and it is possible she has a longstanding nonischemic cardiomyopathy. It was improved October 20, 2019 but not normal, which would be consistent with either diagnosis. The elevated troponin on arrival suggests a more acute process and she does not have evidence of an acute coronary event. If she does not normalize we can evaluate for other causes of cardiomyopathy. (2) Elevated troponin: She had a moderately elevated troponin (2.2) on admission which increased to 6.8 on the second and third reading, it was down to 3.7 a day later. Perhaps a stress test would be in order in the distant future after full recovery. (3) CHF (congestive heart failure): She had evidence of heart failure on chest x-ray on admission and had left ventricular dysfunction and a markedly elevated BNP. Her heart failure is probably on the basis of LV dysfunction as noted above. Subsequent chest x-rays continue to show vascular congestion and her BNP remains elevated. I believe she remains fluid overloaded although by weight she has improved but she has not been diuresed. That may be in order. Admission and Anticipated Discharge Date Admission Date: October 18, 2019 Subjective She is feeling much better, she is now getting out of bed for physical therapy. She is little short of breath but not much, currently she is not on oxygen. No cardiovascular complaints. Physical Exam Physical Exam: Constitutional: She is comfortable today, she is sitting at the bedside preparing for physical therapy HEENT: Unremarkable Neck: No jugular venous distention, carotid pulses are normal and equal bilaterally without bruits. Pulmonary: Crackles at bases bilaterally. Cardiac: Regular rhythm with no murmur, gallop or rub. Abdomen: Soft, nontender with normal bowel sounds. Extremities: No edema. Distal pulses intact. Neurologic: Unremarkable on limited exam. Skin: No rash, ecchymoses or petechiae. Results & Data ([facility]) Vital Signs (Past 12 Hours) Vital Signs Temp Pulse Resp BP Pulse Ox 10/23/19 07:15 36.8 C 77 18 128/81 93 10/23/19 03:36 36.8 C 72 17 129/84 92 03/01/20 23:14 37.0 C 83 17 146/89 H 92 Laboratory Results CBC 10/23/19 Range/Units 06:17 WBC 13.63 H (4.8-10.8) K/uL RBC 3.48 L (4.2-5.4) M/uL Hgb 9.7 L (12.0-16.0) g/dL Hct 30.0 L (37-47) % Plt Count 60 L D (130-400) K/uL Neut # (Auto) 10.94 H (1.4-6.5) K/uL Lymph # (Auto) 1.25 (1.2-3.4) K/uL [place] # (Auto) 1.08 H (0.11-0.59) K/uL Eos # (Auto) 0.13 (0-0.5) K/uL Baso # (Auto) 0.02 (0-0.2) K/uL Comprehensive Metabolic Panel 10/23/19 Range/Units 06:17 Sodium 143 (136-145) mmol/L Potassium TNP Chloride 113 H (98-107) mmol/L Carbon Dioxide 26 (21-32) mmol/L BUN 43 H (7-18) mg/dl Creatinine 1.19 D (0.6-1.2) mg/dl Glucose 96 (70-99) mg/dl Calcium 8.2 L (8.5-10.1) mg/dl Intake and Output 10/22/19 10/23/19 10/23/19 22:59 06:59 14:59 Intake Total 1191.12 / 2216.12 600 / 2216.12 Output Total 2050 Balance 441.12 / 165.12 150 / 165.12 Intake: IV 66.12 / 66.12 Rocephin 2,000 mg In D5w 50 ml 66.12 / 66.12 @ 2.917 mls/hr IV DAILY@1999 [facility] Rx#:[id number] Oral 1124 Output: Stool 0 / 0 Emesis 0 / 0 Urine Amount (Catheter) 2049 450 / 2049 Jimenez/Indwelling 2049 Diagnostic Findings Telemetry: Sinus rhythm, gradual rate drop appropriately as she recovers over the weekend PG Care Time/CCT Total # of Minutes Spent Total Time Spent with Patient: Total time spent is greater than 50% in coordination of care (as documented) at patient's floor/unit and/or counseling patient: Coding Level of Care Code 73497 Subseq Hosp Care Lvl 2 Diagnoses Cardiomyopathy I42.9 Elevated troponin R79.89 CHF (congestive heart failure) I50.9
--- NOTE | 2019-10-23 09:27 | Nephrology Progress Note ---
Date of Service October 23, 2019 Assessment & Plan (1) Acute kidney injury: ZION secondary to ATN in the setting of gram negative sepsis, unilateral obstruction, recent NSAID use. Non-oliguric. Creatinine stable. Electrolytes acceptable. BP and volume status reasonably controlled. Medications are appropriately dosed for kidney function. Remains on renally dosed Zosyn for gm negative sepsis. Renal function improving rapidly, cr down to 1.2, electrolyte acceptable. BP fair. --UO stabilizing an dclose to net even, po intake improved --encourage po intake --Document I/O's. Repeat metabolic profile tomorrow AM. will sign off, please contact if any q. (2) NSTEMI, initial episode of care: Cardiology consultation reviewed. No plan for coronary angiography at this time. Clinically improved. (3) Sepsis due to gram-negative UTI: Remains on Zosyn. Repeat cultures pending. (4) Hydronephrosis with urinary obstruction due to ureteral calculus: CT reviewed. POD #2 s/p stent placement. (5) Anemia: With acute thrombocytopenia. Unclear etiology. Findings of anaplasmosis (including inclusion bodies) noted noted. Peripheral smear did not demonstrate schistocytes or evidence of MAHA in terms of LDH or bilirubin. Attributed to acute infection for now with close prospective monitoring. HIT ab testing negative. (6) Admitted to intensive care unit: 30 minutes of critical care time provided today. (7) Cardiomyopathy: TTE reviewed. Nafisa Lange Was seen and examined in her room this morning. She is out of bed and sitting in chair, overall feeling better, denies shortness of breath. Has decent urine output and remained net negative. Renal function improved, cr 1.2, electrolyte acceptable. Review of Systems Review of Systems: All systems reviewed & are unremarkable except as noted in HPI & below Physical Exam Constitutional: + ill appearing; no acute distress Respiratory: normal respiratory effort, lungs clear to auscultation normal respiratory effort; no respiratory distress Auscultation: + diminished lung sounds Cardiovascular: RRR, no murmur, no edema Skin: no rashes, warm and dry Neurologic: moves all extremities and awake; not confused Psychiatric: A+Ox3, euthymic affect Results & Data Vital Signs (Past 12 Hours) Vital Signs Temp Pulse Resp BP Pulse Ox 10/23/19 07:15 36.8 C 77 18 128/81 93 10/23/19 03:36 36.8 C 72 17 129/84 92 10/22/19 23:14 37.0 C 83 17 146/89 H 92 PG Care Time/CCT Total # of Minutes Spent Total Time Spent with Patient: Total time spent is greater than 50% in coordination of care (as documented) at patient's floor/unit and/or counseling patient: Coding Level of Care Code 43625 Subseq Hosp Care Lvl 2 Diagnoses Acute kidney injury N17.9 NSTEMI, initial episode of care I21.4 Sepsis due to gram-negative UTI A41.50; N39.0 Hydronephrosis with urinary obstruction due to ureteral calculus N13.2 Anemia D64.9 Admitted to intensive care unit Z78.9 Cardiomyopathy I42.9
[2019-10-23] MEDS ORDERED: FUROSEMIDE 20 MG in SYRINGE 0 ML IV ONE (11:15)
[2019-10-23] MEDS: cefTRIAXone SODIUM 2,000 MG in DEXTROSE 5% 50 ML IV SCH (19:25)
[2019-10-23] MEDS: ACETAMINOPHEN 500 MG TAB PO PRN (19:52)
[2019-10-24 06:21] LABS: Hematocrit (blood only) 31.2 % (37-47); Hemoglobin 9.9 g/dL (12.0-16.0); Mean Corpuscular Hemoglobin 27.7 pg (25-34); Mean Corpuscular Hgb Conc 31.7 g/dL (32-36); Mean Corpuscular Volume 87.2 fL (80-100); Mean Platelet Volume 12.3 fL (7.4-10.4); Platelet Count 113 K/uL (130-400); RDW Coefficient of Variation 14.9 % (11.5-14.5); RDW Standard Deviation 46.9 fL (36.4-46.3); Red Blood Count 3.58 M/uL (4.2-5.4); White Blood Count 13.84 K/uL (4.8-10.8)
[2019-10-24 06:50] LABS: BUN Creatinine Ratio 28.8 (10-20); Calcium 8.3 mg/dl (8.5-10.1); Creatinine Clr Calc Pharmacy 69.6 ml/min; Est GFR (African American) 67.3; Est GFR (Non-African American) 58.1; Phosphorus 3.5 mg/dl (2.5-4.9); Potassium 3.6 mmol/L (3.5-5.1)
[2019-10-24 07:30] LABS: Basophils # (auto) 0.01 K/uL (0-0.2); Basophils % (auto) 0.1 %; Eosinophils # (auto) 0.12 K/uL (0-0.5); Eosinophils % (auto) 0.9 %; Hypogranular Neutrophils 1+; Immature Granulocytes # (auto) 0.17 K/uL (0.00-0.02); Immature Granulocytes % (auto) 1.2 %; Lymphocytes # (auto) 0.95 K/uL (1.2-3.4); Lymphocytes % (auto) 6.9 %; Monocytes # (auto) 1.06 K/uL (0.11-0.59); Monocytes % (auto) 7.7 %; Neutrophils # (auto) 11.53 K/uL (1.4-6.5); Neutrophils % (auto) 83.2 %
[2019-10-24] MEDS: ACETAMINOPHEN 500 MG TAB PO PRN ×3 (07:53→23:51)
--- NOTE | 2019-10-24 11:08 | Hospitalist Progress Note ---
Date of Service October 24, 2019 Assessment & Plan (1) Sepsis due to gram-negative UTI: Sepsis due to gram-negative UTI/hydronephrosis with urinary obstruction due to ureteral calculus- urine culture with E coli will continue Rocephin while hospitalized, change to oral cephalosporin on discharge plan for 14 days total doing well, no fever, no pain from stone, WBC is stable at 13k, will repeat tomorrow (2) NSTEMI, initial episode of care: Initial troponin at [facility] was 1.5. Trop peaked at 6.8 no chest pain, this represents DEMAND ISCHEMIA, in setting of severe sepsis, respiratory failure, hypotension this is NOT a primary cardiac event (3) Acute respiratory failure with hypoxia: initially required intubation, extubated successfully breathing is stable mildly volume overloaded on 10/22, responded well to Lasix 20mg IV x 1 dose no further diuresis needed (4) Hydronephrosis with urinary obstruction due to ureteral calculus: s/p stent placement no pain continue antibiotics for 14 days total, follow up with urology in clinic (5) Altered mental status: Patient upon first presentation to [facility] on 01/12 had normal mentation. Upon presentation to [facility] ED on the evening of 01/13 she was noted to be confused. Upon arrival to [facility] ICU patient does answer questions appropriately. this is completely resolved, AAOX3 for several days this was encephalopathy in setting of severe sepsis (6) Anemia: hemoglobin stable at 9.9 will monitor. (7) Metabolic acidosis: due to sepsis and renal failure, resolved (8) Acute kidney injury: resolved, Cr down to 1.10 was due to severe sepsis, hypotension, dehydration electrolytes stable Lasix 20mg IV given / for diuresis, responded well, no further doses needed (9) Cardiomyopathy: EF reduced slightly, it actually improved on repeat echo likely due to severe sepsis euvolemic today Admission and Anticipated Discharge Date Admission Date: October 18, 2019 Anticipated date of discharge: 10/25/19 Subjective patient feeling much better today, a little weak eating much better, had eggs this morning had a bowel movement this morning, will get marquis out which makes her happy labs today show WBC 13k, Hb 9.9, Cr is 1.1, K is 3.6, Mg 2.0 no pain associated with the stone discussed downgrade to medical floor, try for discharge tomorrow Review of Systems Review of Systems: All systems reviewed & are unremarkable except as noted in HPI & below Constitutional: no fever, no chills, no sweats, no fatigue and no weakness Respiratory: no cough and no dyspnea Cardiovascular: no chest pain and no edema Gastrointestinal: no abdominal pain, no nausea, no vomiting, no constipation and no diarrhea/loose stools Physical Exam Constitutional: WD/WN, vitals as above Eyes: PERRL, conjunctivae normal, anicteric sclerae ENMT: external ear and nose normal, oropharynx normal Neck: trachea midline, no thyromegaly Respiratory: normal respiratory effort, lungs clear to auscultation Cardiovascular: RRR, no murmur, no edema Gastrointestinal (Abdomen): normal bowel sounds, soft, nontender, no hepatosplenomegaly Musculoskeletal: no cyanosis or clubbing, extremities motor strength 5/5 Skin: no rashes, warm and dry Neurologic: patellar DTR's 2+ bilat, sensation intact and PERRL, EOMI, accommodation nl, no face palsy, no dysarthria Psychiatric: A+Ox3, euthymic affect Lymphatic: no cervical or axillary lymphadenopathy Results & Data ([facility]) Vital Signs (Past 12 Hours) Vital Signs Temp Pulse Resp BP BP Pulse Ox 10/24/19 07:47 36.9 C 83 20 131/71 96 10/24/19 04:02 37.0 C 82 18 136/84 94 10/24/19 00:07 36.8 C 73 17 116/73 94 Laboratory Results Laboratory Results - last 24 hr 10/24/19 10/24/19 05:41 05:41 WBC 13.84 H RBC 3.58 L Hgb 9.9 L Hct 31.2 L MCV 87.2 MCH 27.7 MCHC 31.7 L RDW Std Deviation 46.9 H RDW Coeff of Nadeen 14.9 H Plt Count 113 L D MPV 12.3 H Immature Gran % (Auto) 1.2 Neut % (Auto) 83.2 Lymph % (Auto) 6.9 [place] % (Auto) 7.7 Eos % (Auto) 0.9 Baso % (Auto) 0.1 Immature Gran # (Auto) 0.17 H Neut # (Auto) 11.53 H Lymph # (Auto) 0.95 L [place] # (Auto) 1.06 H Eos # (Auto) 0.12 Baso # (Auto) 0.01 Hypogranular Neuts 1+ Sodium 143 Potassium 3.6 Chloride 114 H Carbon Dioxide 25 Anion Gap 4.0 BUN 32 H Creatinine 1.10 Est Cr Clr Drug Dosing 69.6 Est GFR ( Amer) 67.3 Est GFR (Non-Af Amer) 58.1 BUN/Creatinine Ratio 28.8 H Glucose 92 Calcium 8.3 L Phosphorus 3.5 Magnesium 2.0 Medications Administered Current Inpatient Medications Acetaminophen (Tylenol) 1,000 mg PO Q6H PRN PRN Reason: Pain Stop: 11/22/19 19:35 Last Admin: 10/24/19 07:53 Dose: 1,000 mg Documented by: Albuterol (Duoneb) 3 ml INH Q4H PRN PRN Reason: Dyspnea Stop: 11/17/19 06:02 Last Admin: 10/20/19 22:57 Dose: 3 ml Documented by: Ceftriaxone Sodium 2,000 mg/ (Dextrose) 70 mls @ 2.917 mls/hr IV DAILY@[facility]; Protocol Stop: 11/04/19 19:59 Last Admin: 10/23/19 19:25 Dose: 2.9 mls/hr Documented by: Metoprolol Tartrate (Lopressor) 5 mg IV Q6 PRN PRN Reason: Undecided Stop: 11/17/19 10:39 PG Care Time/CCT Total # of Minutes Spent Total Time Spent with Patient: Total time spent is greater than 50% in coordin ation of care (as documented) at patient's floor/unit and/or counseling patient: Coding Level of Care Code 44685 Subseq Hosp Care Lvl 3 Diagnoses Sepsis due to gram-negative UTI A41.50; N39.0 NSTEMI, initial episode of care I21.4 Acute respiratory failure with hypoxia J96.01 Hydronephrosis with urinary obstruction due to ureteral calculus N13.2 Altered mental status R41.82 Anemia D64.9 Metabolic acidosis E87.2 Acute kidney injury N17.9 Cardiomyopathy I42.9
[2019-10-24] MEDS ORDERED: Nursing to Pharmacy Communication ONE (11:29)
[2019-10-24] MEDS: cefTRIAXone SODIUM 2,000 MG in DEXTROSE 5% 50 ML IV SCH (12:16)
[2019-10-24] MEDS ORDERED: cefTRIAXone SODIUM 2,000 MG in DEXTROSE 5% 50 ML IV SCH (20:00)
[2019-10-25 09:05] LABS: Hematocrit (blood only) 30.6 % (37-47); Mean Corpuscular Hemoglobin 28.3 pg (25-34); Mean Corpuscular Hgb Conc 32.7 g/dL (32-36); Mean Corpuscular Volume 86.7 fL (80-100); Mean Platelet Volume 10.6 fL (7.4-10.4); Platelet Count 173 K/uL (130-400); RDW Coefficient of Variation 15.2 % (11.5-14.5); RDW Standard Deviation 47.1 fL (36.4-46.3); Red Blood Count 3.53 M/uL (4.2-5.4); White Blood Count 12.17 K/uL (4.8-10.8)
[2019-10-25 09:20] LABS: BUN Creatinine Ratio 20.1 (10-20); Calcium 8.2 mg/dl (8.5-10.1); Creatinine Clr Calc Pharmacy 75.9 ml/min; Est GFR (African American) 75.5; Est GFR (Non-African American) 65.2; Potassium 3.4 mmol/L (3.5-5.1)
[2019-10-25 09:33] LABS: Basophils # (auto) 0.01 K/uL (0-0.2); Basophils % (auto) 0.1 %; Eosinophils # (auto) 0.09 K/uL (0-0.5); Eosinophils % (auto) 0.7 %; Immature Granulocytes # (auto) 0.11 K/uL (0.00-0.02); Immature Granulocytes % (auto) 0.9 %; Lymphocytes # (auto) 0.85 K/uL (1.2-3.4); Monocytes # (auto) 0.68 K/uL (0.11-0.59); Monocytes % (auto) 5.6 %; Neutrophils # (auto) 10.43 K/uL (1.4-6.5); Neutrophils % (auto) 85.7 %
[2019-10-25] MEDS ORDERED: METOPROLOL TARTRATE 25 MG TAB PO SCH (11:30)
[2019-10-25] MEDS ORDERED: lisinopriL 5 MG TAB PO SCH (11:30)
== END 2019-10-25 16:10 | disposition home health service (06) | DRG 853 ==
LOC: 1E 10-18 05:37 → SUATTDRO 10-18 05:37 → 2E 10-22 17:09 → 3W 10-24 11:07